=== PATIENT | female | born 1975 | race Caucasian/White ===

== ENCOUNTER 2016-04-24 19:31 | Emergency (ER) | payer OTHER ==
[~2016-04-24] VITALS: Ht 175.3 cm; Wt 120.9 kg
[~2016-04-24 19:31] MED LIST: CLIN300C3 PO; GABA-500 PO; IBUP800T28 PO; KLO5T PO; OXYC-466 PO; PHEN37.53 PO; [UNRECOGNIZED DRUG - CODE] PO
[2016-04-24 19:45] VITALS: BP 127/84; PULSE 97; RESP 18; O2SAT 100
--- NOTE | 2016-04-24 21:03 | ED.REPORT ---
HPI-General Illness Date of Service Apr 24, 2016 ED Provider: MD Eladio This is a 41 year old female with a history of ovarian cysts and chronic pain presenting to the ED complaining of sudden onset nausea that began 30 hours ago. Shortly after pt developed dizziness associated with 2 episodes emesis. Today the nausea and dizziness persists, she also reports a sense of confusion and difficulty speaking. Dizziness is described as a room-spinning sensation. Spouse adds that pt appears to be intoxicated at times although she denies EtOH or illicit substance use. She denies fever, chills, cough, abdominal pain, bowel, or bladder changes at this time. Nursing Notes Stated Complaint: DIZZINESS,FALLING,NOT MAKING SENSE, NAUSEA Chief Complaint: General Complaint Nursing Notes Reviewed: Yes Allergies: Coded Allergies: amoxicillin (Verified Allergy, Intermediate, Hives, 04/24/16) TOLERATED KEFLEX IN PAST morphine (Verified Allergy, Intermediate, dyspnea, hives, 04/24/16) Scheduled Clindamycin HCl (Cleocin) 300 Mg Capsule 300 MG PO QID Clonazepam (Clonazepam) 0.5 Mg Tablet 0 PO 0000 Gabapentin (Gabapentin) 100 Mg Capsule 200 MG PO BID oxyCODONE-Acetaminophen 10-325 mg (oxyCODONE-Acetaminophen 10-325 mg) 1 Each Tablet 0 PO 0000 Scheduled PRN Ibuprofen (Ibuprofen) 800 Mg Tablet 800 MG PO QID PRN PRN For Pain Ondansetron ODT (Ondansetron ODT) 8 Mg Tab.rapdis 8 MG PO QID PRN PRN For Nausea Miscellaneous Medications Hydrocod/APAP-Expunged, Do Not Renew! (Hydrocod/APAP 5/325-Expunged, Do Not Renew!) 10 Tab/Pkg Pkg 10 TAB PO Phentermine -Expunged Drug, Do Not Renew! (Phentermine-Expunged Drug, Do Not Renew!) 37.5 Mg Tablet 37.5 MG PO General Time Seen by MD: 21:03 Chief Complaint Not feeling well Hx Obtained From: Patient Arrived By: Walk-in Sudden in Onset?: Yes Onset Occurred: 1 day ago Symptom Duration: Since onset Severity: Current: No pain currently Pertinent Negative: Pt denies other symptoms Recent Healthcare: No recent doctor visit, No recent hospitalization Similar Sx Previous: No Past Medical History Past Medical History Notes: chronic pain Past Medical History Ovarian cysts Cellulitis herniated disk thinning of the spine reported transverse myelitis Past Surgical History Tubal ligation back surgery Reports: , Tonsillectomy Family History Noncontributory Smoking History Former Smoker Social History Alcohol Use: Denies alcohol use Drug Use: Denies drug use Occupation lives with boyfriend Ambulatory Status Independent Review of Systems Full Review of Systems Constitutional: Denies: Chills, Fever Respiratory: Denies: Non-productive cough, Shortness of breath Cardiovascular: Denies: Chest pain GI: Reports: Nausea, Vomiting, Denies: Abdominal pain Neurologic: Reports: Dizziness, Headache, Unable to speak Complete sys rev & neg: except as marked. Physical Exam Vital Signs Vital Signs Date Time Temp Pulse Resp B/P Pulse Ox O2 Delivery O2 Flow Rate FiO2 04/24/16 23:43 79 14 99/65 96 Room Air 04/24/16 22:06 36.6 82 126/83 97 Room Air 04/24/16 19:45 36.2 97 18 127/84 100 Room Air Initial VS: Reviewed Respiratory: Breath sounds normal, Clear to auscultation, No respiratory distress Cardiovascular: Regular rate & rhythm, Heart sounds normal, Intact distal pulses Extremities: Vascular intact, Neuro intact, No swelling, No tenderness Psychiatric: Mood/affect normal, Behavior normal, Normal thought content General/Constitutional: Awake, Alert Appearance / Presentation: Positive: Ill appearing/not toxic Head / Eyes: PERRL, EOMI, No nystagmus Mouth: Positive: Mucous membranes dry Pharynx / Tonsils / Uvula: Positive: Pharyngeal erythema Neck: Full range of motion Bilateral cervical adenopathy Neurologic: Oriented X3, No motor deficits, No sensory deficits, CN II - XII intact Slow to respond Interpretation & Diagnostics Lab Results Interpretation Result Diagram: 04/24/16204904/24/162049 Test 04/24/16 20:50 04/24/16 21:35 04/24/16 22:00 White Blood Count 8.3th/mm3 (3.8-10.1) Red Blood Count 4.47mil/mm3 (3.90-5.20) Hemoglobin 14.8g/dL (12.0-15.6) Hematocrit 42.8% (35.0-46.0) Mean Corpuscular Volume 95.7fL (81-100) Mean Corpuscular Hemoglobin 33.1pg (27.0-35.0) Mean Corpuscular Hemoglobin Concent 34.6% (32.0-37.0) Red Cell Distribution Width 12.2% (12.3-15.4) Platelet Count 290bil/L (150-400) Neutrophils (%) (Auto) 38.5% (40-74) Lymphocytes (%) (Auto) 49.3% (14-46) Monocytes (%) (Auto) 7.1% (4-12) Eosinophils (%) (Auto) 4.6% (0-5) Basophils (%) (Auto) 0.4% (0-3) Erythrocyte Sedimentation Rate 12mm/hr (0-32) Sodium Level 139mEq/L (134-144) Potassium Level 3.7mEq/L (3.5-5.2) Chloride Level 102mEq/L (97-108) Carbon Dioxide Level 28mmol/L (18-29) Blood Urea Nitrogen 7mg/dL (6-24) Creatinine 0.76mg/dL (0.57-1.00) Estimat Glomerular Filtration Rate 121mL/min (>59) Glucose Level 137mg/dL (60-99) Calcium Level 9.0mg/dL (8.5-10.1) Magnesium Level 1.8mg/dL (1.6-2.6) Total Bilirubin 0.5mg/dL (0.0-1.2) Aspartate Amino Transf (AST/SGOT) 21U/L (0-50) Alanine Aminotransferase (ALT/SGPT) 9U/L (0-32) Alkaline Phosphatase 68U/L (25-150) Total Protein 6.6g/dL (6.4-8.4) Albumin 3.6g/dL (3.4-5.0) Thyroid Stimulating Hormone (TSH) 1.210uIU/mL (0.450-4.500) Free Thyroxine 1.14ng/dL (0.82-1.77) Hold [place] Top Tube Received (Received) Alcohol, Quantitative < 10mg/dL (0-10) Ammonia 33ug/dL (18-53) Urine Color Yellow (YELLOW) Urine Appearance Clear (CLEAR,HAZY) Urine pH 6.5 (5.0-8.0) Urine Specific [place] 1.020 (1.003-1.035) Urine Protein Negativemg/dL (NEG,TRACE) Urine Glucose (UA) Negativemg/dL (NEGATIVE) Urine Ketones Negativemg/dL (NEGATIVE) Urine Occult Blood Negative (NEGATIVE) Urine Nitrite Negative (NEGATIVE) Urine Bilirubin Negative (NEGATIVE) Urine Urobilinogen Normalmg/dL (NORMAL) Urine Leukocyte Esterase Negative (NEGATIVE) Urine RBC 0-2/hpf (0-2) Urine WBC 0-5/hpf (0-5) Urine Epithelial Cells Moderate/hpf (NONE-MOD) Urine Crystals None seen (NONE SEEN) Urine Bacteria Few/hpf (NONE-FEW) Urine Hyaline Casts None/lpf (NONE) Urine Granular Casts None seen (NONE SEEN) Urine Waxy Casts None seen (NONE SEEN) Urine Red Blood Cell Casts None seen (NONE SEEN) Urine White Blood Cell Casts None seen (NONE SEEN) Urine Mucus None seen (None Seen) Urine Trichomonas None seen (NONE SEEN) Urine Yeast None (NONE SEEN) Urine Culture Reflexed Not indicated X-Ray Chest Interpretation Chest Xray Interpretation: IMPRESSION: 1. No acute cardiopulmonary disease. Dictated by: Jose Rowland M.D. on 04/24/2016 at 22:41 Approved by: Jose Rowland M.D. on 04/24/2016 at 22:41 NL X-Ray Chest Findings: No acute disease CT Head Interpretation IMPRESSION: 1. No acute intracranial abnormality. Dictated by: Jose Rowland M.D. on 04/24/2016 at 22:19 Approved by: Jose Rowland M.D. on 04/24/2016 at 22:20 Re-Eval/Medical Decision Med Decision/Clinical Course 41-year-old with a multitude of symptoms but primarily appearing dehydrated and in the midst of a viral flulike illness. She complains also of headache that is markedly improved with hydration and with meds. At this point, she is requesting discharge and appears much better. All of her difficulties with vision and coordination appear to have resolved with hydration. She is discharged in stable condition Time of Eval: 23:22 Re-Evaluation/Progress Note: Re-checked condition improved, pt feels well and would like to go home. Discussed lab and imaging results, plan for discharge, all questions addressed. Counseled Regarding: Diagnosis, Lab results, Need for follow-up, When/why to return to ED Discharge & Departure Primary Impression: Dehydration Additional Impression: Vomiting Vomiting type: unspecified Vomiting Intractability: unspecified Nausea presence: with nausea Qualified Code: R11.2 - Nausea with vomiting, unspecified Disposition: Home Discharge Condition All VS Reviewed: Yes Condition: Stable Patient Instructions: Acute Nausea and Vomiting (ED), Dehydration (ED) Additional Instructions: Try and maintain your hydration. Frequent sips of an electrolyte containing solutions such as Pedialyte, or Gatorade, or Powerade. Zofran if needed for nausea, up to four times daily. Ibuprofen as needed for headache. Follow-up with your doctor in the office. Return here promptly if worsening despite treatment. Referrals: NOPCP (PCP) Scribe Attestation Portions of this note were transcribed by Raghu Suresh. I, Dr. Hendricks personally performed the history, physical exam and medical decision-making; I reviewed and confirmed the accuracy of the information in the transcribed note. Signed by Bob Nash, 04/24/2016 at 21:30. Will Hendricks MD Apr 24, 2016 21:03 RAGHU SURESH Apr 24, 2016 21:05
[2016-04-24 21:04] LABS: BASOPHILS % (AUTO) 0.4 % (0-3); EOSINOPHILS % (AUTO) 4.6 % (0-5); MONOCYTES % (AUTO) 7.1 % (4-12); Mean Corpuscular Hemoglobin 33.1 pg (27.0-35.0); Mean Corpuscular Volume 95.7 fL (81-100); NEUTROPHILS % (AUTO) 38.5 % (40-74); Platelet Count 290 bil/L (150-400)
[2016-04-24] MEDS ORDERED: Ondansetron 2 mg/mL 2 mL Inj IVPUSH ONE (21:20)
[2016-04-24 21:22] LABS: Magnesium 1.8 mg/dL (1.6-2.6)
[2016-04-24] MEDS: 0.9% Sodium Chloride 1,000 ML IV SCH ×2 (21:41→22:48)
[2016-04-24 22:06] VITALS: BP 126/83; PULSE 82; O2SAT 97
--- NOTE | 2016-04-24 22:21 | DRSVH ---
PROCEDURE: CT BRAIN WITHOUT CONTRAST ([id number]) INDICATIONS: Altered mental status. TECHNIQUE: Noncontrast 4.5 mm thick angled axial sections acquired from the foramen magnum to the vertex, with c oronal reformats. COMPARISON: None. FINDINGS: Image quality: Excellent. CSF spaces: Basal cisterns are patent. No extra-axial fluid collections. Ventricles are normal in size and shape. Brain: No intracranial hemorrhage, mass, or mass effect. Fregoso-white matter interface is preserved. Skull and face: Calvarium and visualized facial bones are intact, without suspicious lesions. Sinuses: Visualized sinuses and mastoids are clear. IMPRESSION: 1. No acute intracranial abnormality. Dictated by: Jose Rowland M.D. on 04/24/2016 at 22:19 Approved by: Jose Rowland M.D. on 04/24/2016 at 22:20
[2016-04-24 22:31] LABS: APPEARANCE,URINE CLEAR (CLEAR,HAZY); COLOR,URINE YELLOW (YELLOW); OCCULT BLOOD,URINE NEGATIVE (NEGATIVE); PH,URINE 6.5 (5.0-8.0); UROBILINOGEN,URINE NORMAL (NORMAL)
[2016-04-24] MEDS ORDERED: Haloperidol 5 mg/mL Inj IVPUSH ONE (22:40)
--- NOTE | 2016-04-24 22:42 | DRSVH ---
PROCEDURE: X-RAY CHEST ONE VIEW, PORTABLE ([id number]) INDICATIONS: altered mental status TECHNIQUE: One view of the chest was acquired. COMPARISON: None. FINDINGS: Surgical changes and devices: None. Lungs and pleura: No pleural effusions or pneumothorax. Lungs are clear. Mediastinum: Mediastinal contours appear normal. Heart size is normal. Bones and chest wall: No suspicious bony lesions. Overlying soft tissues appear unremarkable. IMPRESSION: 1. No acute cardiopulmonary disease. Dictated by: Jose Rowland M.D. on 04/24/2016 at 22:41 Approved by: Jose Rowland M.D. on 04/24/2016 at 22:41
[2016-04-24] MEDS ORDERED: ONDA8TAB10 PO (23:26)
[2016-04-24 23:43] VITALS: BP 99/65; PULSE 79; RESP 14; O2SAT 96
== END 2016-04-24 23:44 | disposition home or self-care (01) ==
LOC: SED 19:31
DX: E86.0 Dehydration (principal); R42 Dizziness and giddiness; R41.0 Disorientation, unspecified; R47.9 Unspecified speech disturbances; G89.29 Other chronic pain; Z87.42 Personal history of other diseases of the female genital tract; Z87.891 Personal history of nicotine dependence; Z88.0 Allergy status to penicillin; Z88.5 Allergy status to narcotic agent
CPT/HCPCS: 36415; 70450; 71010; 80053; 81000; 81002; 81025; 82140; 83735; 84439; 84443; 85025; 85651; 87804; 87880; 93005; 96361; 96374; 96375; 99285; G0480; J1200; J1630; J2405; J7030

== ENCOUNTER 2016-04-29 11:42 | Observation (INO) | payer OTHER ==
[~2016-04-29] VITALS: Ht 175.3 cm; Wt 121.2 kg
[~2016-04-29 11:42] MED LIST changes: +ONDA8TAB10 PO
[2016-04-29 11:44] VITALS: BP 141/101; PULSE 84; RESP 15; O2SAT 99
--- NOTE | 2016-04-29 13:21 | ED.REPORT ---
HPI-Dizziness / Weakness Date of Service Apr 29, 2016 ED Provider: Reggie Leon PA-C This is a 41-year-old female who presents with a chief complaint of dizziness. She reports that her symptoms began Tuesday, when she sat up dizzy and fell over. She states since that time she has had several falls, as well as left ear , head, jaw and neck pain, difficulty finding words. Dizziness is described as "room spinning". She cannot identify any aggravating factors. Patient states she has been walking with assistance for the last 5 days, though she admits she was able to get herself to the bathroom when her partner is sleeping. She was seen in this department shortly after symptoms started. Her workup including head CT and chest x-ray were negative. She responded well to fluids and Antivert and was discharged. Patient reports that the meclizine was not effective at home. Transported by EMS to [facility] in [place] approximately 3 days ago after she became short of breath after a fall down the stairs. Again workup was negative including head CT and MRI as well as an x- ray of her left shoulder. This morning she reports falling and striking her head on a tile floor, she was quite nauseated and vomited several times. She denies loss of consciousness, seizures. Nursing Notes Stated Complaint: DIZZY/SHOULDER PAIN Chief Complaint: General Complaint Nursing Notes Reviewed: Yes Allergies: Coded Allergies: nitrofurantoin (Verified Allergy, Severe, Hives, stopped breathing, ) amoxicillin (Verified Allergy, Intermediate, Hives, 04/29/16) TOLERATED KEFLEX IN PAST morphine (Verified Allergy, Intermediate, dyspnea, hives, 04/29/16) Scheduled Clindamycin (Clindamycin) 300 Mg Capsule 300 MG PO TID Clonazepam (Clonazepam) 1 Mg Tablet 1 MG PO TID Duloxetine (Duloxetine) 30 Mg Capsule.dr 30 MG PO DAILY Pregabalin (Lyrica) 225 Mg Capsule 225 MG PO TID Tizanidine (Tizanidine) 4 Mg Tablet 4 MG PO TID Trazodone (Trazodone) 50 Mg Tablet 150 MG PO HS oxyCODONE-Acetaminophen 10-325 mg (oxyCODONE-Acetaminophen 10-325 mg) 1 Each Tablet 1-1.5 TAB PO Q6H Scheduled PRN Diazepam (Diazepam) 2 Mg Tablet 2 MG PO QID PRN PRN For Anxiety Ibuprofen (Ibuprofen) 800 Mg Tablet 800 MG PO QID PRN PRN For Pain Promethazine (Promethazine) 25 Mg Tablet 25 MG PO Q6H PRN PRN For Nausea General Time Seen by MD: 12:46 Chief Complaint Dizzy Past Medical History Past Medical History Notes: [facility] ED for dizziness 04/24/2016 [facility] emergency department for vertigo 04/26/2016 (CT head negative) [facility] urgency department for vertigo with admission April 27, 2016 (negative MRI) Past Medical History Anxiety History depression History of heart murmur as Hypertension, not on medications History polycystic ovarian syndrome Obesity Meniscectomy L4-L5 ho reported transverse myelitis Past Surgical History Tubal ligation Laminectomy L4-L5 in 2009 He sections in 2000, 2013 Hysteroscopy Reports: , Tonsillectomy Family History Noncontributory Smoking History Former Smoker Social History Alcohol Use: Denies alcohol use Drug Use: Denies drug use Occupation lives with boyfriend Ambulatory Status Independent Review of Systems Review of Systems Note: General: Denies fever, chills, malaise. HEENT: Admits headache, ear pain Respiratory: Denies dyspnea, cough, shortness of breath, wheezing. Cardiovascular: Denies chest pain, palpitations. Gastrointestinal: Denies vomiting, diarrhea, abdominal pain. Genitourinary: Denies frequency, urgency, dysuria, hematuria. Otherwise as noted in HPI. Physical Exam General: Well appearing, well developed, well nourished, moderate distress. Head: Atraumatic, normocephalic. No mastoid tenderness. Eyes: No scleral icterus or injection. No discharge. PERRL. EOMI. Vision grossly intact. Left ear: Tympanic membrane bulging, purulent exudate. Pinna and tragus nontender with manipulation. External auditory canal patent, atraumatic and without discharge. Hearing grossly intact. Right ear: Pinna and tragus nontender with manipulation. External auditory canal patent, atraumatic and without discharge. Tympanic membrane carter, shiny and translucent without fluid, bulging, retraction or perforation. Hearing grossly intact. Nose: Symmetrical, nares patent without discharge. No frontal or maxillary sinus tenderness. Mouth/pharynx: Mucus membranes moist. Tonsils 2+ and symmetrical, uvula midline. Pharynx noninjected, no cobblestoning or discharge. Voice clear. Neck: Left anterior neck tender to palpation. Normal to inspection. No lymphadenopathy. Trachea midline. Respiratory: Regular rate and rhythm. Breath sounds present, clear to auscultation and equal bilaterally. Cardiovascular: Regular rate and rhythm, without murmur, gallop or rub. No pedal edema. Gastrointestinal: Obese abdomen with right lower quadrant tenderness and no guarding or rebound. Bowel sounds normoactive. Skin: Warm and dry. Neurological: Grossly nonfocal. Cranial nerves: Light touch over the cheek and jaw deficient on left. Vision grossly intact, patient reports diplopia at all times. PERRL. EOMI. Facial motion symmetrical. Voice clear and fluent, no drooling/pooling of saliva, uvula rises midline. Psychological: Alert and oriented. Patient reports difficulty finding words. Speech appropriate, linear and logical. Behavior appropriate. Initial Vital Signs Vital Signs (First) Date Time Temp Pulse Resp B/P Pulse Ox O2 Delivery O2 Flow Rate FiO2 04/29/16 11:44 36.2 84 15 141/101 99 Room Air Initial VS: Reviewed, Vital signs abnormal Interpretation & Diagnostics Interpretation & Diagnostics: CT head 2 negative and past few days, MRI brain normal at [place] Lab Results Interpretation Result Diagram: 04/29/16 1352 04/29/16 1352 Test 04/29/16 12:00 04/29/16 13:52 Hold Urine Received (Received) White Blood Count 8.4th/mm3 (3.8-10.1) Red Blood Count 4.53mil/mm3 (3.90-5.20) Hemoglobin 14.9g/dL (12.0-15.6) Hematocrit 42.0% (35.0-46.0) Mean Corpuscular Volume 92.7fL (81-100) Mean Corpuscular Hemoglobin 32.9pg (27.0-35.0) Mean Corpuscular Hemoglobin Concent 35.5% (32.0-37.0) Red Cell Distribution Width 11.9% (12.3-15.4) Platelet Count 269bil/L (150-400) Neutrophils (%) (Auto) 43.1% (40-74) Lymphocytes (%) (Auto) 45.1% (14-46) Monocytes (%) (Auto) 7.9% (4-12) Eosinophils (%) (Auto) 3.6% (0-5) Basophils (%) (Auto) 0.2% (0-3) Sodium Level 145mEq/L (134-144) Potassium Level 4.4mEq/L (3.5-5.2) Chloride Level 106mEq/L (97-108) Carbon Dioxide Level 27mmol/L (18-29) Blood Urea Nitrogen 12mg/dL (6-24) Creatinine 0.82mg/dL (0.57-1.00) Estimat Glomerular Filtration Rate 111mL/min (>59) Glucose Level 94mg/dL (60-99) Calcium Level 9.1mg/dL (8.5-10.1) Total Bilirubin 0.5mg/dL (0.0-1.2) Aspartate Amino Transf (AST/SGOT) 27U/L (0-50) Alanine Aminotransferase (ALT/SGPT) 9U/L (0-32) Alkaline Phosphatase 85U/L (25-150) Total Protein 6.6g/dL (6.4-8.4) Albumin 4.1g/dL (3.4-5.0) Hold [place] Top Tube Received (Received) Re-Eval/Medical Decision Source of Hx: Old records (obtained from [facility]) Consultation #1: Referral / Consult Name: Sonia Tate MD Consulted With: Primary care physician Call Returned at: 13:49 Note: Discussed case with her primary care physician reports that she is concerned because the patient appeared quite lethargic and sedated in clinic last night. Symptoms of dizziness and ear pain and headache have been persistent. Workup at [facility] was generally negative including head CT and MRI. Dr. Scott states she is considering sinusitis, labyrinthitis and placed the patient on clindamycin. She also reports the patient is on a pain contract. She was last taking up to 7, 10 mg oxycodone per day. She feels that given her a 10 mg oxycodone today for her head and shoulder pain as appropriate. Consultation #2: Referral / Consult Name: Ky Sanders DO Consulted With: Hospitalist Call Returned at: 16:35 Client Relationship Executive: Agrees with eval, Agrees with plan, Accepts admit Note: Dr. Aparicio discussed patient's case with Dr. Sanders, who accepts admit Patient Discharge & Departure Impression: Primary Impression: Vertigo Additional Impression: Left ear pain Disposition: ADMITTED TO HOSPITAL Referrals: NOPCP (PCP) Sonia Tate MD EDSupervising Provider for APC: Mike Aparicio MD Attestation Portions of this note were transcribed by Bela Penn. I, Dr. Aparicio, personally performed the history, physical exam, and medical decision-making; I reviewed and confirmed the accuracy of the information in the transcribed note. Signed by: Bob Covarrubias, 04/29/2016, 16:51 Attending Statement This is a patient initially seen by the mid-level provider, but I personally interviewed and examined this patient. This patient was initially seen and evaluated at [facility] on April 24 in the emergency department for dizziness and falling, with possible vertigo, had a stat CT was negative and was discharged. She was subsequently seen both April 26 in April 27 at [facility] in [place]. She reports about 4 days ago abrupt onset of vertigo which she describes it spinning, worse with turning her head-and describes today is "I feel come on about" and associated that she has had several falls. . She has had Had a CT up at [facility] as well on her visit on April 26. She has been adamant trying to make it home, but was still having profound symptoms of re-presented to the ED at [facility] on the , her arrangements were made for her to be admitted. She underwent brain MRI on the which was negative. However she was only there for several hours, and despite still being symptomatic signed out AMA. She is follow-up the PCP and because she is complaining of left ear pain was started on clindamycin, and has been tried on a multitude of medicines-meclizine, ondansetron, currently taking diazepam 5 mg at a time and she reports none of them of help. Presents complaining of intractable vertigo, the sense that she feels drunk, and ongoing severe left ear pain. On exam she has no focal deficits, no nystagmus. She is obese. I do not appreciate any overt external signs of infection on clinical exam of the left ear. While she complains of pain, the eardrum and canal appear normal. But she has describes pain just performing the physical exam. There is no visible swelling, there is no cellulitis around the ear or jaw, there is no adenopathy. There is no TM perforation, and I do not appreciate any fluid behind the eardrum. I obtained records from [facility] with all of her notes and reviewed and confirmed the negative imaging. The patient's complaining of pain, intractable symptoms. I have added additional medication and we tried promethazine, Benadryl, and after social hospitalist and repeat benzodiazepines, having some steroids and if given 40 mg of Solu-Medrol, for pain and given dose of Dilaudid, and given ear pain I still think it is reasonable to treat for the possibility of an ear infectionthough I do not appreciate one clearcut on physical exam, I do not push any dental infections on exam. However primary care physician or Center in today requesting a dose of IV antibiotics, so dose of ceftriaxone is been given. Rectal reveals an rhythms, multiple visits the patient's being admitted and the case is been discussed the hospitalist. Sonia Tate MD, Seth PA-C Apr 29, 2016 13:21 BELA PENN Apr 29, 2016 16:49 Mike Aparicio MD Apr 29, 2016 16:59 Mike Aparicio MD Apr 29, 2016 16:59
[2016-04-29] MEDS ORDERED: 0.9% Sodium Chloride 1,000 ML IV ONE (13:30)
[2016-04-29] MEDS ORDERED: oxyCODONE-Acetamin 5-325 mg Tablet PO ONE (14:05)
[2016-04-29 14:18] VITALS: BP 124/75; PULSE 71; O2SAT 96
[2016-04-29 14:34] LABS: BASOPHILS % (AUTO) 0.2 % (0-3); EOSINOPHILS % (AUTO) 3.6 % (0-5); MONOCYTES % (AUTO) 7.9 % (4-12); Mean Corpuscular Hemoglobin 32.9 pg (27.0-35.0); Mean Corpuscular Volume 92.7 fL (81-100); NEUTROPHILS % (AUTO) 43.1 % (40-74); Platelet Count 269 bil/L (150-400)
[2016-04-29] MEDS ORDERED: HYDROmorphone 1 mg/mL Inj IVPUSH ONE (15:20)
[2016-04-29] MEDS ORDERED: Promethazine Inj 25 MG in Dextrose 5%-Pha MIX 50 ML IV ONE (15:20)
[2016-04-29] MEDS ORDERED: Neomycin-Polymyxin-HC 10 mL Otic Solution LEFT_EAR ONE (15:25)
[2016-04-29] MEDS ORDERED: MethylprednisoLONE Sodium Succinate 40 mg/mL Inj IVPUSH ONE (16:40)
[2016-04-29] MEDS ORDERED: Ondansetron 2 mg/mL 2 mL Inj IVPUSH PRN (17:10)
[2016-04-29] MEDS ORDERED: Alum-Mag Hydrox-Simeth 30 mL Suspension PO PRN (17:10)
[2016-04-29] MEDS ORDERED: Promethazine 12.5 mg/50 mL-NS 12.5 MG in IV Premix 1 EACH IV PRN (17:10)
[2016-04-29 17:33] VITALS: BP 143/94; PULSE 77; O2SAT 98
[2016-04-29] MEDS ORDERED: CLIN-78 PO (17:45)
[2016-04-29] MEDS ORDERED: PROM25TA14 PO (17:45)
[2016-04-29] MEDS ORDERED: DIAZ2TAB2 PO (17:45)
--- NOTE | 2016-04-29 17:46 | PCM.HPMED ---
Subjective Date of Service Apr 29, 2016 Primary Provider: Admitting Physician: Primary Care Physician: Other,Physician Attending Physician: Admit Status: From the Emergency Department Chief Complaint: vertigo History of Present Illness: 41 yo female - began tuesday night with subsequent 2 doctor visits and ER visits, with persistent vertigo. vomited x 1 with nausea. no diarrhea/f/c. hx of fall in bathroom/bedroom, with head trauma w/ falls d/t vertigo. hasn't resolved - has been continuous, no prev episodes. Pt notes tubal ligation. denies vaginal or rectal bleeding. was in [facility] prior to tuesday - no trauma. neg CT/MRI during recent w/u. denies new medications, take chronic pain meds for LBP from lumbar spine fusion/herniated disc. Pt seen in [facility] ED for dizziness on 04/24/2016 along with [facility] emergency department for vertigo 04/26/2016 (CT head neg) and [facility] ER on April 27, 2016 (found to have negative MRI) Review of Systems: complete ROS unremarkable except as listed in HPI Allergies Coded Allergies: amoxicillin (Verified Allergy, Intermediate, Hives, 04/29/16) TOLERATED KEFLEX IN PAST morphine (Verified Allergy, Intermediate, dyspnea, hives, 04/29/16) Home Medications Clindamycin HCl (Cleocin) 300 Mg Capsule 300 MG PO QID Clonazepam (Clonazepam) 0.5 Mg Tablet for sleep/anxiety Gabapentin (Gabapentin) 100 Mg Capsule 200 MG PO BID oxyCODONE-Acetaminophen 10-325 mg (oxyCODONE-Acetaminophen 10-325 mg) 1 Each Tablet 0 PO 0000 recently started diazepam 2mg q6PRN from PCP for vertigo Promethazine - PRN Meclizine - PRN Scheduled PRN Ibuprofen (Ibuprofen) 800 Mg Tablet 800 MG PO QID PRN PRN For Pain Ondansetron ODT (Ondansetron ODT) 8 Mg Tab.rapdis 8 MG PO QID PRN PRN For Nausea PMH Anxiety History depression History of heart murmur as Hypertension, not on medications polycystic ovarian syndrome Obesity Meniscectomy L4-L5, herniated disc ho reported transverse myelitis Surgical History Tubal ligation Laminectomy L4-L5 in 2009 He sections in 2000, 2013 Hysteroscopy Reports: , Tonsillectomy Family History Noncontributory Social History Hx Alcohol Use: No Hx Substance Use: No Smoking Status: Former Smoker Exam Vital Signs Vital Sign - Last Date Time Temp Pulse Resp B/P Pulse Ox O2 Delivery O2 Flow Rate FiO2 04/29/16 14:18 36.7 71 124/75 96 Room Air 04/29/16 11:44 15 Exam Gen.: Uncomfortable, alert and oriented, pleasant, obese HEENT: Normocephalic/atraumatic, pupils equal round react to light and accommodation,EOMI, Anicteric sclera, No mucosal ulcerations, no overt nystagmus noted with lateral gaze, also noted left ear findings of bulging TM, erythematous and tender to touch. Right ear nontender, with normal exam Neck: No JVD, lymphadenopathy, no thyromegaly Cardiovascular: No rubs clicks murmurs or gallops, regular rate Respiratory: Clear to auscultation bilaterally no wheezes rales or rhonchi, good historian effort GI: Soft, nontender to palpation no masses no hepatosplenomegaly noted no peritoneal signs or rebound tenderness. Extremities: No clubbing cyanosis or edema, warm, sensation intact Neurologic, muscle strength 5 out of 5 in upper and lower extremities bilaterally, creatinine nerves II-12 grossly intact Psych: Mood appropriate, affect appropriate, no tangential thought or speech Lab and Diagnostics Result Diagram: 04/29/16 1352 04/29/16 1352 X-Rays, CTs and MRIs April 24 IMPRESSION: 1. No acute intracranial abnormality. Dictated by: Jose Rowland M.D. on 04/24/2016 at 22:19 Assessment & Plan 41-year-old female presenting with vertigo possibly secondary to left otitis media, less likely BPPV given the lack of nystagmus Vertigo, negative MRI CT on previous hospital visits -Plan to treat for left-sided otitis media, patient was on clindamycin as an outpatient and may continue. -Received Solu-Medrol dose in the ER along with Ativan -We will continue when necessary Ativan but avoid oversedation -Hold home regimen of Klonopin and Valium. -PT to see patient was hospitalized for eval of functional status to ensure safe discharge -Zofran and meclizine when necessary Anxiety/depression -When necessary lorazepam as above Hypertension -Not on any medications, monitor for now likely unrelated to above -We will consider when necessary medications if persistently elevated Pain Evaluation: Adequate Pain Control GI Prophylaxis: Not indicated VTE Prophylaxis: Other (ambulatory) Resuscitation Status: CPR: Attempt Resuscitation Time spent 40 minutes spent with evaluation and management including coordination of care and admission. Ky Sanders DO Apr 29, 2016 17:18
[2016-04-29] MEDS ORDERED: PREG225C PO (17:54)
[2016-04-29] MEDS ORDERED: TRAZ-115 PO (17:54)
[2016-04-29] MEDS ORDERED: KLO1T PO (17:54)
[2016-04-29] MEDS ORDERED: DULO30CA50 PO (17:54)
[2016-04-29] MEDS ORDERED: TIZA4TAB4 PO (17:57)
--- NOTE | 2016-04-29 18:14 | NUR ---
Admit nurse note Partial admission assessment completed in room. During med reconciliation pt. had difficulty remembering and began to get confused about which med was which. She became tearful, said she felt judged and misunderstood, and said "I just want it all to end. It'll never get better. It all just gets worse all the time." Pt's eyelids drooped shut many times during conversation and she said she had her home meds in her diaper bag and had taken her home ativan. "I told the nurse. She knows and was okay with that." Pt. informed of policy that no home meds be in pt. rooms and agrees to send her meds home with her . Several meds at bedside placed in a bag to be taken home with . ED RN states she did not know pt. was taking her home meds and, in fact, gave her ativan and benadryl. Report given to primary RN who is currently giving report to receiving RN Braden Lin.
[2016-04-29 19:15] VITALS: BP 145/88; PULSE 68; RESP 16; O2SAT 96
[2016-04-29] MEDS: 0.9% Sodium Chloride 1,000 ML IV SCH (20:26)
[2016-04-29 21:08] VITALS: BP 152/98; PULSE 74; RESP 18; O2SAT 97
[2016-04-29] MEDS ORDERED: oxyCODONE-Acetamin 10-325 mg Tablet PO PRN (23:50)
--- NOTE | 2016-04-30 00:25 | NUR ---
Pain / Mentation / Family Visitors c/o 9.5 pain, eventually received PRN Oxycodone order from Night Hospitalist. Step-father, adolescent daughter and toddler son in room at shift change. Step-father left with toddler and to go get food for patient. daughter stayed in room. The daughter became tearful around 22:30 and walked out to hand me a vape nicotine device. The patient indicated from inside room she wants to call 911. Walked into room and patient/mom asked: "is someone in the hospital that can control my daughter" ...i advised a parent or guardian would be best. The patient/mom argued with daughter over whose vape it was... each blaming the other person. I ended up locking in med drawer advising its use was not permitted in hospital. The daughter was also tearful over wanting to go see her biological father. The patient/mom began explaining there is a do not contact order against the biological father. The daughter insists it hasn't taken effect yet. The step father came back again to pickup daughter and left with vape device. Patients meds are still in pharmacy, however after second visit from step-father the patient refused the afore mentioned pain medications. Patient appears to be resting quietly.
[2016-04-30 06:09] VITALS: BP 123/70; PULSE 60; RESP 18; O2SAT 92
[2016-04-30] MEDS: 0.9% Sodium Chloride 1,000 ML IV SCH (07:48)
[2016-04-30 09:16] LABS: APPEARANCE,URINE CLEAR (CLEAR,HAZY); COLOR,URINE YELLOW (YELLOW); OCCULT BLOOD,URINE NEGATIVE (NEGATIVE); PH,URINE 5.5 (5.0-8.0); UROBILINOGEN,URINE NORMAL (NORMAL)
[2016-04-30 09:56] LABS: BASOPHILS % (AUTO) 0.1 % (0-3); EOSINOPHILS % (AUTO) 0.1 % (0-5); MONOCYTES % (AUTO) 6.7 % (4-12); Mean Corpuscular Hemoglobin 32.8 pg (27.0-35.0); Mean Corpuscular Volume 92.8 fL (81-100); NEUTROPHILS % (AUTO) 82.3 % (40-74); Platelet Count 268 bil/L (150-400)
[2016-04-30] MEDS ORDERED: DULoxetine 30 mg DR Capsule PO SCH (12:05)
--- NOTE | 2016-04-30 13:12 | PCM.DIMED ---
Discharge Instructions Date of Service Apr 30, 2016 Dates of Hospitalization Apr 29, 2016 at 18:13 Discharge Diagnosis Discharge Diagnosis Refractory Vertigo likely secondary to otitis media Anxiety History depression History of heart murmur as Hypertension, not on medications polycystic ovarian syndrome Obesity Meniscectomy L4-L5, herniated disc Medication Instructions Please continue azithromycin to complete a 5 day regimen, her last dose will be on 05/03 for your ear infection Diet Low fat, Low Sodium, Heart Healthy Activity No restrictions Call your provider Fever or Chills, Shortness of breath, Bleeding, Chest pain Patient Instructions Please continue azithromycin to complete a 5 day regimen, her last dose will be on 05/03 for your ear infection Follow-up plan Please follow up with her primary care physician within one week, and take your meclizine as needed for persistent vertigo. If taking this medication often they can cause dry mouth, sedation and urinary hesitancy. Please try not to take this with your nighttime sleeping medicine Follow-up with PCP in: 1 week Ky Sanders DO Apr 30, 2016 13:11
[2016-04-30] MEDS ORDERED: ZIT250 PO (13:14)
[2016-04-30] MEDS ORDERED: PRE20 PO ×2 (13:20→13:22)
--- NOTE | 2016-04-30 13:32 | PCM.DC.MED ---
Discharge Summary Date of Service Apr 30, 2016 Dates of Hospitalization Date of Hospital Admission Apr 29, 2016 at 18:13 Date of Discharge: Apr 30, 2016 Providers: Admitting Physician: Ky Sanders DO Primary Care Physician: Other,Physician Attending Physician: Ky Sanders DO Diagnosis at Time of Discharge Diagnosis at Time of Discharge Refractory Vertigo likely secondary to otitis media Anxiety History depression History of heart murmur as infant Hypertension, not on medications polycystic ovarian syndrome Obesity Meniscectomy L4-L5, herniated disc Procedures XRay, CTs & MRIs April 24 IMPRESSION: 1. No acute intracranial abnormality. Dictated by: Jose Rowland M.D. on 04/24/2016 at 22:19 Brief History 41 yo female - began tuesday night with subsequent 2 doctor visits and ER visits, with persistent vertigo. vomited x 1 with nausea. no diarrhea/f/c. hx of fall in bathroom/bedroom, with head trauma w/ falls d/t vertigo. hasn't resolved - has been continuous, no prev episodes. Pt notes tubal ligation. denies vaginal or rectal bleeding. was in [facility] prior to tuesday - no trauma. neg CT/MRI during recent w/u. denies new medications, take chronic pain meds for LBP from lumbar spine fusion/herniated disc. Pt seen in [facility] ED for dizziness on 04/24/2016 along with [facility] emergency department for vertigo 04/26/2016 (CT head neg) and [facility] ER on April 27, 2016 (found to have negative MRI) Hospital Course 41-year-old female presenting with vertigo possibly secondary to left otitis media, less likely BPPV given the lack of nystagmus Vertigo, negative MRI CT on previous hospital visits -Plan to discharge patient and continue treatment for left-sided otitis media, patient was on clindamycin as an outpatient and has been switched to azithromycin, to continue 4 more days and complete a course. -At time of discharge patient was medically stable with adequate oxygenation and hemodynamics, patient was watched with nursing staff and found to be stable with her gait. -Received Solu-Medrol dose in the ER along with Ativan, patient has diazepam at home and has been instructed not to take diazepam and her anxiety medication Klonopin, together as they can cause an extreme sedative effect./Rectum not to take medications with her meclizine that she has at home for vertigo. -Given her symptomatically improvement with Solu-Medrol I will plan on continuing prednisone for 4 more days. -We will continue when necessary Ativan but avoid oversedation -Hold home regimen of Klonopin and Valium. -Zofran and meclizine were provided when necessary while hospitalized Anxiety/depression -When necessary lorazepam as above Hypertension -Not on any medications, monitor for now likely unrelated to above -We will consider when necessary medications if persistently elevated Exam Vital Signs (Last) Date Time Temp Pulse Resp B/P Pulse Ox O2 Delivery O2 Flow Rate FiO2 04/30/16 06:09 36.7 60 18 123/70 92 04/29/16 17:33 Room Air Exam Gen.: Uncomfortable, alert and oriented, pleasant, obese HEENT: Normocephalic/atraumatic, pupils equal round react to light and accommodation,EOMI, Anicteric sclera, No mucosal ulcerations, no overt nystagmus noted with lateral gaze, also noted left ear findings of bulging TM, erythematous and tender to touch. Right ear nontender, with normal exam Neck: No JVD, lymphadenopathy, no thyromegaly Cardiovascular: No rubs clicks murmurs or gallops, regular rate Respiratory: Clear to auscultation bilaterally no wheezes rales or rhonchi, good historian effort GI: Soft, nontender to palpation no masses no hepatosplenomegaly noted no peritoneal signs or rebound tenderness. Extremities: No clubbing cyanosis or edema, warm, sensation intact Neurologic, muscle strength 5 out of 5 in upper and lower extremities bilaterally, creatinine nerves II-12 grossly intact Psych: Mood appropriate, affect appropriate, no tangential thought or speech Test 04/29/16 08:19 04/29/16 12:00 04/29/16 13:52 04/30/16 09:15 Urine Color Yellow (YELLOW) Urine Appearance Clear (CLEAR,HAZY) Urine pH 5.5 (5.0-8.0) Urine Specific [place] 1.030 (1.003-1.035) Urine Protein Negativemg/dL (NEG,TRACE) Urine Glucose (UA) Negativemg/dL (NEGATIVE) Urine Ketones Negativemg/dL (NEGATIVE) Urine Occult Blood Negative (NEGATIVE) Urine Nitrite Negative (NEGATIVE) Urine Bilirubin Negative (NEGATIVE) Urine Urobilinogen Normalmg/dL (NORMAL) Urine Leukocyte Esterase Negative (NEGATIVE) Urine RBC 0-2/hpf (0-2) Urine WBC 0-5/hpf (0-5) Urine Epithelial Cells Occasional/hpf (NONE-MOD) Urine Crystals None seen (NONE SEEN) Urine Bacteria Moderate/hpf (NONE-FEW) Urine Hyaline Casts None/lpf (NONE) Urine Granular Casts None seen (NONE SEEN) Urine Waxy Casts None seen (NONE SEEN) Urine Red Blood Cell Casts None seen (NONE SEEN) Urine White Blood Cell Casts None seen (NONE SEEN) Urine Mucus Present (None Seen) Urine Trichomonas None seen (NONE SEEN) Urine Yeast None (NONE SEEN) Urinalysis Comment None Urine Culture Reflexed Indicated Hold Urine Received (Received) Total Bilirubin 0.5mg/dL (0.0-1.2) Aspartate Amino Transf (AST/SGOT) 27U/L (0-50) Alanine Aminotransferase (ALT/SGPT) 9U/L (0-32) Alkaline Phosphatase 85U/L (25-150) Total Protein 6.6g/dL (6.4-8.4) Albumin 4.1g/dL (3.4-5.0) Hold [place] Top Tube Received (Received) White Blood Count 14.5th/mm3 (3.8-10.1) Red Blood Count 4.42mil/mm3 (3.90-5.20) Hemoglobin 14.5g/dL (12.0-15.6) Hematocrit 41.0% (35.0-46.0) Mean Corpuscular Volume 92.8fL (81-100) Mean Corpuscular Hemoglobin 32.8pg (27.0-35.0) Mean Corpuscular Hemoglobin Concent 35.4% (32.0-37.0) Red Cell Distribution Width 11.6% (12.3-15.4) Platelet Count 268bil/L (150-400) Neutrophils (%) (Auto) 82.3% (40-74) Lymphocytes (%) (Auto) 10.5% (14-46) Monocytes (%) (Auto) 6.7% (4-12) Eosinophils (%) (Auto) 0.1% (0-5) Basophils (%) (Auto) 0.1% (0-3) Sodium Level 144mEq/L (134-144) Potassium Level 5.4mEq/L (3.5-5.2) Chloride Level 108mEq/L (97-108) Carbon Dioxide Level 24mmol/L (18-29) Blood Urea Nitrogen 12mg/dL (6-24) Creatinine 0.77mg/dL (0.57-1.00) Estimat Glomerular Filtration Rate 119mL/min (>59) Glucose Level 126mg/dL (60-99) Calcium Level 9.3mg/dL (8.5-10.1) Discharge Medications Discharge Medications Azithromycin (Zithromax) 250 Mg Tablet 250 MG PO DAILY Prescribed by: KY SANDERS DO Clonazepam (Clonazepam) 1 Mg Tablet 1 MG PO TID (Reported) Duloxetine (Duloxetine) 30 Mg Capsule.dr 30 MG PO DAILY (Reported) Prednisone (PredniSONE) 20 Mg Tablet 20 MG PO DAILY Prescribed by: KY SANDERS DO Pregabalin (Lyrica) 225 Mg Capsule 225 MG PO TID (Reported) Tizanidine (Tizanidine) 4 Mg Tablet 4 MG PO TID (Reported) Trazodone (Trazodone) 50 Mg Tablet 150 MG PO HS (Reported) oxyCODONE-Acetaminophen 10-325 mg (oxyCODONE-Acetaminophen 10-325 mg) 1 Each Tablet 1-1.5 TAB PO Q6H (Reported) As needed Diazepam (Diazepam) 2 Mg Tablet 2 MG PO QID PRN PRN For Anxiety (Reported) Ibuprofen (Ibuprofen) 800 Mg Tablet 800 MG PO QID PRN PRN For Pain (Reported) Promethazine (Promethazine) 25 Mg Tablet 25 MG PO Q6H PRN PRN For Nausea ( Reported) Additional med instructions Please continue azithromycin to complete a 5 day regimen, her last dose will be on 05/03 for your ear infection Followup Plan Follow-up plan Please follow up with her primary care physician within one week, and take your meclizine as needed for persistent vertigo. If taking this medication often they can cause dry mouth, sedation and urinary hesitancy. Please try not to take this with your nighttime sleeping medicine Discharge Diet: Low fat, Low Sodium, Heart Healthy Discharge Activity: No restrictions Patient Instructions Please continue azithromycin to complete a 5 day regimen, her last dose will be on 05/03 for your ear infection Follow-up with PCP in: 1 week Time spent 45 minutes spent with evaluation management including discharge and coordination of care copies to: Sonia Tate MD, David DO Apr 30, 2016 13:27
--- NOTE | 2016-04-30 13:54 | NUR ---
Social Work: Discharge Data: Pt is on day 1 of hospitalization. EMR reviewed. D/C orders are in. No d/c planning needed at this time. TREATMENT COORDINATOR will continue to follow if needs arise. Assessment: Pt who is independent at baseline. Plan: Pt will d/c home via POV today. No d/c planning needed at this time. TREATMENT COORDINATOR will continue to follow if needs arise. МАРИНА Escobar
[2016-04-30 16:05] VITALS: BP 141/91; PULSE 103; RESP 20; O2SAT 96
--- NOTE | 2016-04-30 16:50 | NUR ---
Discharge Discharge paper work, care notes, and medications reviewed and signed. IV DC'd intact, No s/sx of distress, all belongings with pt, and home meds picked up from pharmacy.
== END 2016-04-30 15:00 | disposition home or self-care (01) ==
LOC: SED 11:42 → MPC 18:13
PROVIDERS: ADMIT Internal Medicine; ATTEND Internal Medicine
DX: R42 Dizziness and giddiness (principal); F41.9 Anxiety disorder, unspecified; F32.9 Major depressive disorder, single episode, unspecified; R01.1 Cardiac murmur, unspecified; I10 Essential (primary) hypertension; E28.2 Polycystic ovarian syndrome; E66.9 Obesity, unspecified; Z79.52 Long term (current) use of systemic steroids; Z87.891 Personal history of nicotine dependence
CPT/HCPCS: 36415; 80048; 80053; 81000; 81025; 85025; 87086; 90791; 96361; 96374; 96375; 96376; 99285; J1170; J1200; J2060; J2920; J7030

== ENCOUNTER 2016-06-29 15:23 | Emergency (ER) | payer OTHER ==
[~2016-06-29] VITALS: Ht 175.3 cm; Wt 125.0 kg
[~2016-06-29 15:23] MED LIST changes: -CLIN300C3 PO; +DIAZ2TAB2 PO; +DULO30CA50 PO; -GABA-500 PO; +KLO1T PO; -KLO5T PO; -ONDA8TAB10 PO; -PHEN37.53 PO; +PRE20 PO; +PREG225C PO; +PROM25TA14 PO; +TIZA4TAB4 PO; +TRAZ-115 PO; +ZIT250 PO; -[UNRECOGNIZED DRUG - CODE] PO
[2016-06-29 15:35] VITALS: PULSE 92; RESP 15; O2SAT 100
[2016-06-29 17:03] LABS: BASOPHILS % (AUTO) 0.2 % (0-3); EOSINOPHILS % (AUTO) 3.1 % (0-5); MONOCYTES % (AUTO) 6.1 % (4-12); Mean Corpuscular Hemoglobin 32.7 pg (27.0-35.0); Mean Corpuscular Volume 93.2 fL (81-100); NEUTROPHILS % (AUTO) 59.2 % (40-74); Platelet Count 305 bil/L (150-400)
[2016-06-29] MEDS: HYDROmorphone 0.5 mg/0.5 mL iSecure Syringe IVPUSH PRN ×5 (17:16→21:11)
--- NOTE | 2016-06-29 17:19 | ED.REPORT ---
HPI-Neurologic Deficit Date of Service Jun 29, 2016 ED Provider: Jesus Dash MD Pt is a 41 y/o female w/ a hx of herniated disc at T10-T11, HTN, presenting to the ED c/o urinary retention onset today. She c/o associated mid-back pain and urinary incontinence onset last night. Two months ago, she was seen in [place] for urinary retention and was discharged with a Lora. Follow-up with [facility] in [place] was obtained who told her that the nerve impingement was the definite cause after a bearing down exercise. She denies IV drug use. She denies fever, chills. Her last back MRI was 1 year ago. A neurosurgery consult has been performed and she was told she was not a surgical candidate at that time. Nursing Notes Stated Complaint: WEAK LEGS/SPINE PAIN Chief Complaint: General Complaint Nursing Notes Reviewed: Yes Allergies: Coded Allergies: nitrofurantoin (Verified Allergy, Severe, Hives, stopped breathing, ) amoxicillin (Verified Allergy, Intermediate, Hives, 04/29/16) TOLERATED KEFLEX IN PAST morphine (Verified Allergy, Intermediate, dyspnea, hives, 04/29/16) Scheduled PRN Clonazepam (Clonazepam) 1 Mg Tablet 1 MG PO TID PRN PRN For Anxiety Ibuprofen (Ibuprofen) 800 Mg Tablet 800 MG PO QID PRN PRN For Pain General Time Seen by Provider: 17:31 Chief Complaint Other (Urinary incontinence) Hx Obtained From: Patient Arrived By: Walk-in Sudden in Onset?: No Onset Occurred: 1 day ago Symptom Duration: Since onset Progression Since Onset: Gradually worsening Location: : Back lower: Back upper Quality: Painful Severity: Current: Moderate Severity: Maximum: Severe Exacerbated by: Movement Recent Healthcare: Previous diagnosis Similar Sx Previous: Yes Past Medical History Past Medical History Herniated discs Anxiety History depression History of heart murmur as infant Hypertension, not on medications History polycystic ovarian syndrome Obesity Meniscectomy L4-L5 ho reported transverse myelitis Past Surgical History Tubal ligation Laminectomy L4-L5 in 2009 He sections in 2000, 2013 Hysteroscopy Reports: , Tonsillectomy Family History Noncontributory Smoking History Former Smoker Social History Alcohol Use: Denies alcohol use Drug Use: Denies drug use Occupation lives with boyfriend Ambulatory Status Independent Review of Systems Constitutional: Denies: Chills, Fever Respiratory: Denies: Non-productive cough, Shortness of breath Cardiovascular: Denies: Chest pain, Dyspnea on exertion GI: Reports: Nausea, Vomiting Musculoskeletal: Reports: Back pain, Denies: Neck pain Neurologic: Reports: Bladder dysfunction, Weakness Complete sys rev & neg: except as marked. Female: Reports: Incontinence, Urination decreased Physical Exam Initial Vital Signs Vital Signs (First) Date Time Temp Pulse Resp B/P Pulse Ox O2 Delivery O2 Flow Rate FiO2 06/29/16 15:35 36.6 92 15 100 Room Air Initial VS: Reviewed ENT: Mucous membranes moist, Conjunctiva normal, No scleral icterus Neck: Supple, Full range of motion Abdomen / GI: Soft, Non-tender Extremities: Vascular intact, Neuro intact, No swelling, No tenderness Skin: Warm, Dry, No cyanosis Psychiatric: Mood/affect normal, Behavior normal, Normal thought content General/Constitutional: Awake, Alert, Cooperative, Not toxic appearing Distress / Hydration: Positive: Distress mild Appearance / Presentation: Positive: Uncomfortable Head / Eyes: Atraumatic, Normocephalic, PERRL Respiratory / Chest: Atraumatic, Breath sounds NL, Breath sounds = bilat, No respiratory distress, No rales, No rhonchi, No wheezing, No retractions, No stridor, No chest tenderness, No chest wall deformity, No crepitus Cardiovascular: Heart rate NL, Regular rhythm, Heart sounds NL, No gallop, No murmurs, No rubs, Cap refill not delayed, Peripheral circulation NL Neurologic: Oriented X3, Speech NL, No motor deficits, Memory NL Babinski's are equivocal bilaterally Knee jerks are aggressive and symmetric Subjective decreased sesnation of the right foot Interpretation & Diagnostics Lab Results Interpretation Result Diagram: 06/29/16 1645 06/29/16 1645 Test 06/29/16 16:45 White Blood Count 13.7th/mm3 (3.8-10.1) Red Blood Count 4.55mil/mm3 (3.90-5.20) Hemoglobin 14.9g/dL (12.0-15.6) Hematocrit 42.4% (35.0-46.0) Mean Corpuscular Volume 93.2fL (81-100) Mean Corpuscular Hemoglobin 32.7pg (27.0-35.0) Mean Corpuscular Hemoglobin Concent 35.1% (32.0-37.0) Red Cell Distribution Width 13.1% (12.3-15.4) Platelet Count 305bil/L (150-400) Neutrophils (%) (Auto) 59.2% (40-74) Lymphocytes (%) (Auto) 31.0% (14-46) Monocytes (%) (Auto) 6.1% (4-12) Eosinophils (%) (Auto) 3.1% (0-5) Basophils (%) (Auto) 0.2% (0-3) Sodium Level 138mEq/L (134-144) Potassium Level 4.3mEq/L (3.5-5.2) Chloride Level 102mEq/L (97-108) Carbon Dioxide Level 20mmol/L (18-29) Blood Urea Nitrogen 13mg/dL (6-24) Creatinine 0.79mg/dL (0.57-1.00) Estimat Glomerular Filtration Rate 115mL/min (>59) Glucose Level 88mg/dL (60-99) Calcium Level 9.0mg/dL (8.5-10.1) Total Bilirubin 0.8mg/dL (0.0-1.2) Aspartate Amino Transf (AST/SGOT) 25U/L (0-50) Alanine Aminotransferase (ALT/SGPT) 11U/L (0-32) Alkaline Phosphatase 91U/L (25-150) Total Protein 7.7g/dL (6.4-8.4) Albumin 4.5g/dL (3.4-5.0) Hold [place] Top Tube Received (Received) Re-Eval/Medical Decision Counseled Regarding: Diagnosis, Lab results Discharge & Departure Shift Change Sign-Out Patient Care Transferred: Yes Discussed Complaint(s): Yes Laboratory Evaluation: Ordered, not yet done Imaging Studies: Ordered, not yet done Additonal Information: To Dr Webster at 1800, MRI in progress Impression: Primary Impression: Back pain Back pain location: back pain in unspecified location Chronicity: acute Back pain laterality: midline Qualified Code: M54.9 - Dorsalgia, unspecified Additional Impression: Urinary retention Discharge Condition All VS Reviewed: Yes Condition: Stable Referrals: NOPCP (PCP) Care Transferred to: Dr. Webster Care Transferred at: 18:00 Scribe Attestation Portions of this note were transcribed by Kingsley Iraheta. I, Dr. Dash personally performed the history, physical exam and medical decision-making; I reviewed and confirmed the accuracy of the information in the transcribed note. Signed by Bob Roman, 06/29/16 - 1799 Jesus Dash MD Jun 29, 2016 17:19 KINGSLEY IRAHETA Jun 29, 2016 17:26
--- NOTE | 2016-06-29 19:15 | DRSVH ---
PROCEDURE: MRI LUMBAR SPINE WITHOUT CONTRAST ([id number]) INDICATIONS: urinary retention and back pain TECHNIQUE: Noncontrast sagittal T1 spin echo and T2 fast echo, sagittal STIR, axial T1 and T2 fast spin echo thr ough the lumbar spine. In cases with scoliosis, additional coronal T2 fast spin echo may be performe d. COMPARISON: [facility], MR, MR LUMBAR SPINE WO CON, 08/04/2015, 18:28. FINDINGS: Image quality: Excellent. Alignment and Curvature: There is normal bony alignment. Bone Marrow: Marrow is of normal overall signal. No acute vertebral body compression fractures. Spinal Cord: Conus medullaris terminates at the L1 level. Visualized cord demonstrates normal signa l and size. Paraspinous Soft Tissues: No paravertebral masses. There are small T2 hyperintense foci within the uterus suggestive of fibroids which are incompletely evaluated. There is a left paracentral Tarlov c yst at level of S3 measuring approximately 1 cm. L1-L2: No spinal canal or neuroforaminal narrowing. L2-L3: Mild disc desiccation with minimal loss of disc height and a small broad-based disc bulge. Mi ld facet arthropathy also noted. There is minimal spinal canal narrowing with minimal bilateral neuro foraminal narrowing. L3-L4: Disc desiccation with a small broad-based disc bulge. There is mild to moderate facet arthrop athy and mild ligamentum flavum hypertrophy. The findings contribute to mild to moderate spinal gio l narrowing with mild bilateral neuroforaminal narrowing. L4-L5: Disc desiccation with moderate loss of disc height and a small broad-based disc bulge. There is moderate facet arthropathy. The findings contribute to mild to moderate bilateral neuroforaminal narrowing. L5-S1: Disc desiccation with mild loss of disc height and a small disc bulge. There is mild facet ar thropathy. No spinal canal narrowing. There is moderate right and [id number] left neuroforami nal narrowing. IMPRESSION: 1. No high-grade spinal canal or neuroforaminal narrowing. 2. Multilevel neuroforaminal narrowing including moderate narrowing on the right at L5-S1 with mild- to-moderate narrowing on the left, as well as [id number] bilateral narrowing at L4-5. Dictated by: Jose Rowland M.D. on 06/29/2016 at 19:00 Approved by: Jose Rowland M.D. on 06/29/2016 at 19:08
[2016-06-29 20:50] LABS: APPEARANCE,URINE CLEAR (CLEAR,HAZY); COLOR,URINE YELLOW (YELLOW); OCCULT BLOOD,URINE NEGATIVE (NEGATIVE); UROBILINOGEN,URINE NORMAL (NORMAL)
[2016-06-29] MEDS ORDERED: _oxyCODONE/APAP 5-325 mg Tablet PO PRN (21:20)
[2016-06-29 22:09] VITALS: BP 105/79; PULSE 71; RESP 16; O2SAT 97
== END 2016-06-29 22:14 | disposition home or self-care (01) ==
LOC: SED 15:23
DX: M54.9 Dorsalgia, unspecified (principal); R33.9 Retention of urine, unspecified; I10 Essential (primary) hypertension; Z87.891 Personal history of nicotine dependence; Z88.1 Allergy status to other antibiotic agents; Z88.8 Allergy status to other drugs, medicaments and biological substances
CPT/HCPCS: 36415; 72148; 80053; 81000; 85025; 96374; 96375; 96376; 99285; J1170; J1885; J2060

== ENCOUNTER 2016-07-28 16:50 | Emergency (ER) | payer OTHER ==
[~2016-07-28] VITALS: Ht 175.3 cm; Wt 125.5 kg
[~2016-07-28 16:50] MED LIST changes: -DIAZ2TAB2 PO; -DULO30CA50 PO; -OXYC-466 PO; -PRE20 PO; -PREG225C PO; -PROM25TA14 PO; -TIZA4TAB4 PO; -TRAZ-115 PO; -ZIT250 PO
[2016-07-28 16:55] VITALS: PULSE 121; RESP 18; O2SAT 98
--- NOTE | 2016-07-28 17:20 | ED.REPORT ---
HPI-Trauma Minor / Fall Date of Service Jul 28, 2016 ED Provider: Dr. Higgins 41 y/o female presents to the ED complaining of mid back pain secondary to fall from a set of stairs. Associated sx include headache, numbness in hands and diminished sensation on the right side of the body. Pt reportedly also had urinary incontinence. Pt denies chest pain, abdominal pain, neck pain and syncope or injuring her head upon fall. Pt was able to ambulate after the fall. Pt typically takes Tylenol for pain. Nursing Notes Stated Complaint: FALL OVER STAIRS BACK AND LEG PAIN Chief Complaint: Multiple Trauma/Fall Nursing Notes Reviewed: Yes Allergies: Coded Allergies: nitrofurantoin (Verified Allergy, Severe, Hives, stopped breathing, ) amoxicillin (Verified Allergy, Intermediate, Hives, 04/29/16) TOLERATED KEFLEX IN PAST morphine (Verified Allergy, Intermediate, dyspnea, hives, 04/29/16) Scheduled PRN Clonazepam (Clonazepam) 1 Mg Tablet 1 MG PO TID PRN PRN For Anxiety Ibuprofen (Ibuprofen) 800 Mg Tablet 800 MG PO QID PRN PRN For Pain Naproxen (Naproxen) 500 Mg Tab 500 MG PO BID PRN PRN For Pain General Time Seen by MD: 17:19 Chief Complaint Fall, Other (back pain) Hx Obtained From: Patient Arrived By: Walk-in Onset Occurred: Just prior to arrival Symptom Duration: Since onset Caused by: Fall on ground Location: Back Quality: Painful Severity: Current: Severe Severity: Maximum: Severe Recent Healthcare: Recent doctor visit Similar Sx Previous: No Past Medical History Past Medical History Herniated discs Anxiety History depression History of heart murmur as Hypertension, not on medications History polycystic ovarian syndrome Obesity Meniscectomy L4-L5 ho reported transverse myelitis Past Surgical History Tubal ligation Laminectomy L4-L5 in 2009 He sections in 2000, 2013 Hysteroscopy Reports: , Tonsillectomy Family History Noncontributory Smoking History Former Smoker Social History Alcohol Use: Denies alcohol use Drug Use: Denies drug use Occupation lives with boyfriend Ambulatory Status Independent Review of Systems Diminished sensation on the right side of the body. Musculoskeletal: Reports: Back pain, Denies: Neck pain Neurologic: Reports: Bladder dysfunction, Headache, Numbness (hands), Denies: Change LOC, Syncope Complete sys rev & neg: except as marked. Cardiovascular: Denies: Chest pain GI: Denies: Abdominal pain Physical Exam Initial Vital Signs Vital Signs (First) Date Time Temp Pulse Resp B/P Pulse Ox O2 Delivery O2 Flow Rate FiO2 07/28/16 16:55 121 18 98 Room Air 07/28/16 18:12 137/110 07/28/16 20:27 36.8 Initial VS: Reviewed, Vital signs normal Head / Eyes: Atraumatic, Normocephalic Respiratory: No respiratory distress Abdomen / GI: Soft, Non-tender Skin: Warm, Dry, No cyanosis Neurologic: Alert, Oriented, Nonfocal Psychiatric: Mood/affect normal, Behavior normal, Normal thought content General/Constitutional: Awake, Alert, Cooperative, Not toxic appearing Neck: Atraumatic, Full range of motion, No midline vertebral tend Cardiovascular: Regular rhythm Heart Rate / Rhythm: Positive: Tachycardia Back: Atraumatic Mid thoracic TTP Upper Extremity / MS: Atraumatic, Full range of motion Lower Extremity / Pelvis / MS: Atraumatic, Neurologic intact, Vascular intact Neurologic: Oriented X3, Speech NL Diminished sensation to pinprick from forehead to toes on the right side. Interpretation & Diagnostics Interpretation & Diagnostics: PROCEDURE: CT CHEST, ABDOMEN AND PELVIS WITH CONTRAST ([id number]) IMPRESSION: 1. No definite acute traumatic abnormality in the chest, abdomen, or pelvis. 2. Hepatic steatosis. 3. Probable corpus luteal cyst in the right ovary. 4. Small left paracentral cystic lesion in the uterine fundus is nonspecific. Further evaluation may be obtained with ultrasound if clinically indicated. Dictated by: Jose Rowland M.D. on 07/28/2016 at 19:18 Approved by: Jose Rowland M.D. on 07/28/2016 at 19:23 Lab Results Interpretation Result Diagram: 07/28/16 1740 07/28/16 1740 Test 07/28/16 17:40 White Blood Count 14.1th/mm3 (3.8-10.1) Red Blood Count 4.35mil/mm3 (3.90-5.20) Hemoglobin 14.5g/dL (12.0-15.6) Hematocrit 41.2% (35.0-46.0) Mean Corpuscular Volume 94.7fL (81-100) Mean Corpuscular Hemoglobin 33.3pg (27.0-35.0) Mean Corpuscular Hemoglobin Concent 35.2% (32.0-37.0) Red Cell Distribution Width 13.3% (12.3-15.4) Platelet Count 308bil/L (150-400) Neutrophils (%) (Auto) 61.9% (40-74) Lymphocytes (%) (Auto) 27.9% (14-46) Monocytes (%) (Auto) 6.8% (4-12) Eosinophils (%) (Auto) 2.8% (0-5) Basophils (%) (Auto) 0.2% (0-3) Prothrombin Time 10.0sec (8.1-12.5) Prothromb Time International Ratio 0.94ratio Activated Partial Thromboplast Time 30.1sec (22.8-33.0) Sodium Level 137mEq/L (134-144) Potassium Level 4.3mEq/L (3.5-5.2) Chloride Level 102mEq/L (97-108) Carbon Dioxide Level 19mmol/L (18-29) Blood Urea Nitrogen 12mg/dL (6-24) Creatinine 0.91mg/dL (0.57-1.00) Estimat Glomerular Filtration Rate 98mL/min (>59) Glucose Level 123mg/dL (60-99) Calcium Level 9.2mg/dL (8.5-10.1) Total Bilirubin 0.5mg/dL (0.0-1.2) Aspartate Amino Transf (AST/SGOT) 20U/L (0-50) Alanine Aminotransferase (ALT/SGPT) 9U/L (0-32) Alkaline Phosphatase 76U/L (25-150) Total Protein 7.6g/dL (6.4-8.4) Albumin 4.2g/dL (3.4-5.0) Human Chorionic Gonadotropin, Qual Negative (Negative) Alcohols < 10mg/dL (0-10) CT Head Interpretation IMPRESSION: 1. No acute intracranial abnormality. Dictated by: Jose Rowland M.D. on 07/28/2016 at 18:59 Approved by: Jose Rowland M.D. on 07/28/2016 at 19:01 Study: Head CT no contrast Interpretation / Wet Read by: Interpret - Radiologist CT Abd / Pelvis Interpretation CT C-Spine Interpretation IMPRESSION: 1. No fracture or subluxation. Dictated by: Jose Rowland M.D. on 07/28/2016 at 19:01 Approved by: Jose Rowland M.D. on 07/28/2016 at 19:02 Study type: CT no contrast Interpretation / Wet Read by: Interpret - Radiologist Re-Eval/Medical Decision Med Decision/Clinical Course The patient's mechanism does not explain her reported findings or clinical presentation however she presents in severe distress complaining of back pain and reportedly right-sided numbness that ultimately does not seem to fit appropriate pattern of neurologic injury or trauma. There are no objective findings on CT scan. She has passed her road test. I do not think that there is a physiologic cause for her reported numb feeling. Specifically I do not think that she has focal spinal cord or cerebral injury, I do not suspect that this is cauda equina syndrome. She will be discharged with strict return and follow-up precautions. Source of Hx: Old records Re-Evaluation/Progress #1: Time of Eval: 18:32 Patient Status: Condition improved Re-Evaluation/Progress Note: Rechecked pt. Pt reports that pain med "helped little bit". However, there has been little change in diminished sensation on the right side. On reeval she says both LE reporteldy numb w/o motor loss. Re-Evaluation/Progress #2: Time of Eval: 19:00 Re-Evaluation/Progress Note: Updated of imaging. Re-Evaluation/Progress #3: Time of Eval: 19:56 Re-Evaluation/Progress Note: d/c home. Passed road test. Discussed plan for discharge and follow up. All questions addressed. Counseled Regarding: Diagnosis, Lab results, Need for follow-up, When/why to return to ED Discharge & Departure Impression: Primary Impression: Back contusion Encounter type: initial encounter Laterality: unspecified laterality Qualified Code: S20.229A - Contusion of unspecified back wall of thorax, initial encounter Disposition: Home Discharge Condition All VS Reviewed: Yes Condition: Stable Additional Instructions: No obvious dramatic injuries can be found. Use ice packs, rest, and naproxen as needed for pain. Follow-up with your primary care doctor or return to the closest ER if you develop worsening or concerning symptoms. Referrals: [facility] Res[facility] Scribe Attestation Portions of this note were transcribed by Fatuma Padgett and Ann Booker. I, personally performed the history, physical exam and medical decision-making;I reviewed and confirmed the accuracy of the information in the transcribed note. Signed by Fatuma Padgett and Ann Booker, Bob. 07/28/16. [id number] copies to: [facility] Rickie Higgins DO Jul 28, 2016 17:20 Fatuma Padgett Jul 28, 2016 17:31 Ann Booker Jul 28, 2016 21:12
[2016-07-28] MEDS ORDERED: 0.9% Sodium Chloride 1,000 ML IV ONE (17:32)
[2016-07-28] MEDS ORDERED: Ondansetron 2 mg/mL 2 mL Inj IVPUSH PRN (17:35)
[2016-07-28 17:55] LABS: BASOPHILS % (AUTO) 0.2 % (0-3); EOSINOPHILS % (AUTO) 2.8 % (0-5); MONOCYTES % (AUTO) 6.8 % (4-12); Mean Corpuscular Hemoglobin 33.3 pg (27.0-35.0); Mean Corpuscular Volume 94.7 fL (81-100); NEUTROPHILS % (AUTO) 61.9 % (40-74); Platelet Count 308 bil/L (150-400)
[2016-07-28 18:09] LABS: INR 0.94 ratio
[2016-07-28] MEDS: HYDROmorphone 0.5 mg/0.5 mL iSecure Syringe IVPUSH PRN ×2 (18:11→18:47)
[2016-07-28 18:12] VITALS: BP 137/110; PULSE 107; RESP 16; O2SAT 98
--- NOTE | 2016-07-28 19:02 | DRSVH ---
PROCEDURE: CT BRAIN WITHOUT CONTRAST ([id number]) INDICATIONS: trauma, back pain, numbness in extremities TECHNIQUE: Noncontrast 4.5 mm thick angled axial sections acquired from the foramen magnum to the vertex, with c oronal reformats. COMPARISON: [facility], CT, CT BRAIN WO CON, 04/24/2016, 21:27. FINDINGS: Image quality: Excellent. CSF spaces: Basal cisterns are patent. No extra-axial fluid collections. Ventricles are normal in size and shape. Brain: No intracranial hemorrhage, mass, or mass effect. Fregoso-white matter interface is preserved. Skull and face: Calvarium and visualized facial bones are intact, without suspicious lesions. Sinuses: Visualized sinuses and mastoids are clear. IMPRESSION: 1. No acute intracranial abnormality. Dictated by: Jose Rowland M.D. on 07/28/2016 at 18:59 Approved by: Jose Rowland M.D. on 07/28/2016 at 19:01
--- NOTE | 2016-07-28 19:04 | DRSVH ---
PROCEDURE: CT CERVICAL SPINE WITHOUT CONTRAST ([id number]) INDICATIONS: trauma, back pain, numbness in extremities TECHNIQUE: Noncontrast 3 mm thick sections acquired from the skull base to the T4 level. Sagittal and coronal r eformats were then constructed. For radiation dose reduction, the following was used: automated exp osure control, adjustment of mA and/or kV according to patient size. COMPARISON: [facility], MR, MR CERVICAL SPINE W&WO CON, 01/20/2016, 1:27. FINDINGS: Image quality: Excellent. Bones: No fractures or dislocations. There is straightening of the cervical lordosis. Visualized dennis perior ribs are intact. Soft tissues: Prevertebral soft tissues are normal in thickness. No paravertebral hematomas. No ap ical pneumothoraces. There are groundglass opacities in the visualized lung apices which are nonspec ific and may represent atelectasis. IMPRESSION: 1. No fracture or subluxation. Dictated by: Jose Rowland M.D. on 07/28/2016 at 19:01 Approved by: Jose Rowland M.D. on 07/28/2016 at 19:02
--- NOTE | 2016-07-28 19:26 | DRSVH ---
PROCEDURE: CT CHEST, ABDOMEN AND PELVIS WITH CONTRAST ([id number]) INDICATIONS: trauma, back pain, numbness in extremities TECHNIQUE: After the administration of intravenous contrast, 5 mm thick sections acquired from the lung apices t o the symphysis. 5 mm thick coronal and sagittal reformats were acquired. Additional 7 mm thick cor onal maximum intensity projection (MIP) reformats acquired through the lungs. Optional 10-minute del ayed imaging may be performed from the kidneys to the bladder. For radiation dose reduction, the fol lowing was used: automated exposure control, adjustment of mA and/or kV according to patient size. COMPARISON: None. FINDINGS: Image quality: There is slight motion artifact. CHEST: Lungs: There is mild dependent atelectasis bilaterally. No definite pulmonary contusions or lacerat ions. No pneumothorax or hemothorax. Central and peripheral airways appear patent and normal in donya iber. Mediastinum: No mediastinal hematomas. Heart size is normal. No pericardial effusion. Thoracic ao rta and pulmonary arteries demonstrate normal size and enhancement. No mediastinal or hilar adenopat hy. There is mild concentric wall thickening of the distal esophagus. No hiatal hernia. Chest wall: No rib fractures. No subcutaneous emphysema. No axillary or supraclavicular adenopathy . Thyroid gland is partially visualized with no discrete nodule identified. ABDOMEN: Solid organs: There is hypoattenuation of the liver consistent with fatty infiltration with mild tilt of sparing along the gallbladder fossa. The spleen is normal in size. No hepatic or splenic lacera tions. Gallbladder appears within normal limits without calcified gallstones. Biliary system is non -dilated. Pancreas enhances normally, without transection. No adrenal hematomas. Both kidneys enha nce normally, without hydronephrosis or lacerations. Peritoneum and bowel: No free fluid or air. Unenhanced bowel loops demonstrate normal wall thicknes s and caliber. Nodes and vessels: No retroperitoneal or mesenteric adenopathy. Aorta and inferior vena cava are no rmal in size and enhancement. Miscellaneous: No ventral hernias. PELVIS: Genitourinary: Bladder wall thickness is normal. There is a small peripherally enhancing cyst in th e right ovary compatible with a corpus luteal cyst. There is a small hypoattenuating cystic lesion i n the left uterine fundus measuring up to 1.1 cm. Miscellaneous: No inguinal hernias or adenopathy. Bones: Pelvic ring and hip joints appear intact. No vertebral compression fractures. IMPRESSION: 1. No definite acute traumatic abnormality in the chest, abdomen, or pelvis. 2. Hepatic steatosis. 3. Probable corpus luteal cyst in the right ovary. 4. Small left paracentral cystic lesion in the uterine fundus is nonspecific. Further evaluation ma y be obtained with ultrasound if clinically indicated. Dictated by: Jose Rowland M.D. on 07/28/2016 at 19:18 Approved by: Jose Rowland M.D. on 07/28/2016 at 19:23
[2016-07-28 19:48] VITALS: BP 101/66; PULSE 101; RESP 20; O2SAT 98
[2016-07-28] MEDS ORDERED: NPR500T PO (20:07)
[2016-07-28 20:27] VITALS: BP 149/105; PULSE 105; RESP 16; O2SAT 98
[2016-07-29] MEDS ORDERED: OXYC1TAB24 PO (23:30)
== END 2016-07-28 20:29 | disposition home or self-care (01) ==
LOC: SED 17:46
DX: S20.229A Contusion of unspecified back wall of thorax, initial encounter (principal); W10.8XXA Fall (on) (from) other stairs and steps, initial encounter; Y93.9 Activity, unspecified; Y92.9 Unspecified place or not applicable; Y99.9 Unspecified external cause status; I10 Essential (primary) hypertension; Z87.891 Personal history of nicotine dependence; Z88.1 Allergy status to other antibiotic agents; Z88.5 Allergy status to narcotic agent
CPT/HCPCS: 36415; 70450; 71260; 72125; 74177; 80053; 84703; 85025; 85610; 85730; 86850; 96374; 96375; 96376; 99285; G0480; J1170; J1885; J2060; J2405; Q9967

== ENCOUNTER 2016-07-29 20:42 | Emergency (ER) | payer OTHER ==
[~2016-07-29] VITALS: Ht 175.3 cm; Wt 124.0 kg
[~2016-07-29 20:42] MED LIST changes: +NPR500T PO
[2016-07-29 21:12] VITALS: BP 130/95; PULSE 111; RESP 20; O2SAT 98
--- NOTE | 2016-07-29 21:25 | ED.REPORT ---
HPI-Back Pain 40 and Over Date of Service Jul 29, 2016 ED Provider: Mike Aparicio MD Patient is a 41 year old female who was seen in the ED yesterday for a back contusion who presents to the ED complaining of worsening back pain onset two days ago. Associated symptoms include shortness of breath, shaking, incontinence and numbness in her right arm and leg. Patient reports that the pain her shortness of breath started just prior to arrival when she tried to lay down. She states that the pain is in her mid lumbar region to her thoracic area and radiates up to her neck. Patient saw her primary care physician earlier today who recommended she take some pain medication. Prior to arrival to the ED, the patient took Ibuprofen with no relief. Nursing Notes Stated Complaint: BACK PAIN Chief Complaint: Back Pain or Injury Nursing Notes Reviewed: Yes (IRI, [employer] not reconciled) Allergies: Coded Allergies: nitrofurantoin (Verified Allergy, Severe, Hives, stopped breathing, ) amoxicillin (Verified Allergy, Intermediate, Hives, 04/29/16) TOLERATED KEFLEX IN PAST morphine (Verified Allergy, Intermediate, dyspnea, hives, 04/29/16) Scheduled PRN Clonazepam (Clonazepam) 1 Mg Tablet 1 MG PO TID PRN PRN For Anxiety Ibuprofen (Ibuprofen) 800 Mg Tablet 800 MG PO QID PRN PRN For Pain Naproxen (Naproxen) 500 Mg Tab 500 MG PO BID PRN PRN For Pain oxyCODONE-Acetaminophen 5-325 mg (oxyCODONE-Acetaminophen 5-325 mg) 1 Each Tablet 1-2 TAB PO Q6H PRN PRN For Pain General Time Seen by MD: 21:19 Chief Complaint Back pain Hx Obtained From: Patient Arrived By: Walk-in Sudden in Onset?: Yes Onset Occurred: 2 days ago Symptom Duration: Since onset Caused by: Fall Location: : Spinal lumbar area: Spinal thoracic area Radiation: : Neck Recent Healthcare: Recent doctor visit Similar Sx Previous: Yes Past Medical History Past Medical History Notes: Patient seen yesterday in ED c/o Back pain after fall: CT negative Patient seen in ED 06/29/16 for back pain - No high grade stenosis on MRI Past Medical History Herniated discs seizures cellulitis Anxiety History depression History of heart murmur as infant Hypertension, not on medications History polycystic ovarian syndrome Obesity Meniscectomy L4-L5 ho reported transverse myelitis Reports: HIV Past Surgical History Tubal ligation Laminectomy L4-L5 in 2009 He sections in 2000, 2013 Hysteroscopy Reports: , Tonsillectomy Family History Noncontributory Smoking History Former Smoker Social History Alcohol Use: Denies alcohol use Drug Use: Denies drug use Occupation lives with boyfriend Ambulatory Status Independent Review of Systems Respiratory: Reports: Dyspnea on exertion, Shortness of breath, Denies: Non-productive cough Female: Reports: Incontinence Musculoskeletal: Reports: Back pain, Neck pain Neurologic: Reports: Numbness (right arm and leg), Shaking Complete sys rev & neg: except as marked. Physical Exam Physical Exam Notes: hyperventilating Initial Vital Signs Vital Signs (First) Date Time Temp Pulse Resp B/P Pulse Ox O2 Delivery O2 Flow Rate FiO2 07/29/16 21:12 36.4 111 20 130/95 98 Room Air Initial VS: Reviewed General/Constitutional: Awake, Alert Behavior: Positive: Anxious Appearance / Presentation: Positive: Obese able to answer questions normally Respiratory / Chest: Atraumatic, Breath sounds NL, Breath sounds = bilat, No respiratory distress Cardiovascular: Heart rate NL, Regular rhythm, Heart sounds NL Abdomen: Atraumatic, Soft, Non-tender Back: Atraumatic, Full range of motion Neurologic: Oriented X3, Speech NL, No motor deficits, No sensory deficits Neck: Atraumatic, Supple, Full range of motion Lower Extremity / Pelvis / MS: Atraumatic, Full range of motion plantar and dorsal flexion in both legs Skin: Atraumatic, Color NL, No rash, Warm, Dry Head / Eyes: Atraumatic, Normocephalic, PERRL, EOMI ENT: Atraumatic, Airway patent, Mucous membranes moist UPPER EXTREMITIES: plantar and dorsal flexion in both arms Psychiatric: Affect NL, Mood NL Interpretation & Diagnostics Lab Results Interpretation Test 07/29/16 21:35 Hold Purple Top Tube Received (Received) Hold Blue Top Tube Received (Received) Hold Red Top Tube Received (Received) Hold Stephan Top Tube Received (Received) Hold Vail Top Tube Received (Received) Re-Eval/Medical Decision Med Decision/Clinical Course This is a 41-year-old female who presents with uncontrolled back pain. Patient had a fall yesterday, and had CT imaging that was negative done yesterday. I reviewed the records also indicate she has had MR imaging a month ago for spine. No acute surgical pathology was identified. The patient for she is having uncontrolled pain, try to go the bathroom and just felt terrible. She is shaking from the pain. She saw her PCP today. She has been taking Aleve with no relief. She is still having some numbness in the leg had before the sciatica. No nilam weakness. Initial nurses note suggest a a possible seizure, to me the patient portion just rapidly breathing and feels short of breath she attributes to the pain. He is initially hyperventilating on my exam. I do not get a clear history describing an overt seizure. I get no history to point me as an acute neurologic event or need for acute/emergent neuro imaging. Patient received pain medicine, with improvement I am not finding indication for further emergent imaging. She has been discharged with some oxycodone, advised to continue the Aleve, as to follow-up with her PCP next week. Patient is much improved on re-evaluation. Routine and return precautions reviewed. Source of Hx: Old records Re-Evaluation/Progress #1: Time of Eval: 22:21 Patient Status: Pain improved Re-Evaluation/Progress Note: Rechecked patient whose condition has improved. Re-Evaluation/Progress #2: Time of Eval: 22:45 Patient Status: Condition improved Re-Evaluation/Progress Note: Discussed previous CT results from 07/28/16.Patient reports that her last dose of Aleve was at 1100 this morning, give another dose of pain medication before discharge. Re-Evaluation/Progress #3: Time of Eval: 23:16 Patient Status: Pain improved Re-Evaluation/Progress Note: Discussed plan for discharge and plan for treatment. The patient understands and agrees to the plan for discharge. All questions were addressed. Differential Diagnosis: Positive: Musculoskeletal pain, Negative: Abdominal aortic aneurysm, Aortic dissection, Cauda equina syndrome , Ectopic , Epidural abscess, Epidural hematoma, Fracture, Neoplasm, Osteomyelitis, Pancreatitis, Pyelonephritis, Sciatica, Spinal mass, Thoracic aortic dissect Counseled Regarding: Diagnosis, Need for follow-up, When/why to return to ED Discharge & Departure Impression: Primary Impression: Back pain Back pain location: low back pain Chronicity: unspecified Back pain laterality: unspecified Sciatica presence: unspecified whether sciatica present Qualified Code: M54.5 - Low back pain Disposition: Home Discharge Condition All VS Reviewed: Yes Condition: Stable Additional Instructions: 1. You had a CT Scan of the Chest/Abdomen and spine yesterday - no fractures or internal injuries were appreciated. You had an MRI of the spine last month with no findings of severe or emergent spinal stenosis. 2. No heavy lifting. 3. Other activities as tolerated 4. Continue to use heat for comfort. 5. Continue to take aleve 500mg twice a day. 6. If needed for more severe pain take oxycodone/APAP 5/325 1-2 tabs up to every 6 hours. Use sparingly. Note: This medication contains narcotics which causes drowsiness. Use only if needed for severe pain. No driving for at least 4-6 hours after taking. Referrals: [facility] Res[facility] Scribe Attestation Portions of this note were transcribed by Sugar Ortiz and Ann Booker. I, Dr. Bradshaw personally performed the history, physical exam and medical decision- making; I reviewed and confirmed the accuracy of the information in the transcribed note. Signed by: Sugar Ortiz and Bob Meek, 07/29/16 and 2339. copies to: [facility] Mike Aparicio MD Jul 29, 2016 21:25 Kim Ortiz Jul 29, 2016 21:54
[2016-07-29] MEDS ORDERED: Ondansetron 8 mg ODT Tablet PO ONE (21:45)
[2016-07-29] MEDS ORDERED: HYDROmorphone 1 mg/mL Inj IM ONE (21:45)
[2016-07-29] MEDS ORDERED: _Ondansetron ODT 4 mg Tablet PO PRN (22:30)
[2016-07-29] MEDS ORDERED: _oxyCODONE/APAP 5-325 mg Tablet PO PRN (22:30)
[2016-07-29 23:09] VITALS: BP 132/82; PULSE 83; RESP 14; O2SAT 95
[2016-07-29] MEDS ORDERED: HYDROmorphone 0.5 mg/0.5 mL iSecure Syringe IVPUSH ONE (23:25)
[2016-07-29] MEDS ORDERED: OXYC1TAB24 PO (23:30)
[2016-07-30 00:05] VITALS: BP 136/80; PULSE 78; RESP 16; O2SAT 97
== END 2016-07-30 00:05 | disposition home or self-care (01) ==
LOC: SED 20:42
DX: M54.5 Low back pain (principal); W19.XXXA Unspecified fall, initial encounter; Y93.9 Activity, unspecified; Y92.89 Other specified places as the place of occurrence of the external cause; Y99.9 Unspecified external cause status; R06.02 Shortness of breath; R25.1 Tremor, unspecified; R20.0 Anesthesia of skin; R32 Unspecified urinary incontinence; I10 Essential (primary) hypertension; B20 Human immunodeficiency virus [HIV] disease; Z87.891 Personal history of nicotine dependence; Z88.1 Allergy status to other antibiotic agents; Z88.5 Allergy status to narcotic agent; Z88.8 Allergy status to other drugs, medicaments and biological substances
CPT/HCPCS: 96372; 96374; 96375; 99284; J1170; J1885; J2060

== ENCOUNTER 2016-08-26 20:44 | Emergency (ER) | payer OTHER ==
[~2016-08-26] VITALS: Ht 175.3 cm; Wt 118.2 kg
[~2016-08-26 20:44] MED LIST changes: +OXYC1TAB24 PO
[2016-08-26 20:54] VITALS: BP 138/103; PULSE 118; RESP 18; O2SAT 98
--- NOTE | 2016-08-26 22:09 | ED.REPORT ---
HPI-Back Pain 40 and Over Date of Service August 26, 2016 ED Provider: Dr. Will Hendricks M.D. A 41 year old female with a medical history including herniated discs, seizures , HIV, and hypertension s/p L4-L5 laminectomy and meniscectomy presents to the ED with thoracic back pain onset suddenly this morning while moving furniture. At onset the patient's legs went numb bilaterally. She denies leg weakness, bowel incontinence, urinary incontinence, or other symptoms. The patient was in the ED on 07/29/16 with similar symptoms. She is currently in the process of establishing a new PCP. Nursing Notes Stated Complaint: BACK PAIN/LEG NUMBNESS Chief Complaint: Back Pain or Injury Nursing Notes Reviewed: Yes Allergies: Coded Allergies: nitrofurantoin (Verified Allergy, Severe, Hives, stopped breathing, ) amoxicillin (Verified Allergy, Intermediate, Hives, 08/26/16) TOLERATED KEFLEX IN PAST morphine (Verified Allergy, Intermediate, dyspnea, hives, 08/26/16) Scheduled Dexamethasone (Dexamethasone) 4 Mg Tablet 4 MG PO BID Methocarbamol (Robaxin-750) 750 Mg Tablet 1,500 MG PO QID Scheduled PRN Clonazepam (Clonazepam) 1 Mg Tablet 1 MG PO TID PRN PRN For Anxiety Ibuprofen (Ibuprofen) 800 Mg Tablet 800 MG PO QID PRN PRN For Pain Naproxen (Naproxen) 500 Mg Tab 500 MG PO BID PRN PRN For Pain oxyCODONE-Acetaminophen 5-325 mg (oxyCODONE-Acetaminophen 5-325 mg) 1 Each Tablet 1-2 TAB PO Q6H PRN PRN For Pain General Time Seen by MD: 22:09 Chief Complaint Back pain Hx Obtained From: Patient Arrived By: Walk-in Sudden in Onset?: Yes Onset Occurred: 9 - 12 hours ago Symptom Duration: Since onset Caused by: Lifting Location: : Perispinal thoracic: Spinal thoracic area Quality: Painful Severity: Current: Moderate Severity: Maximum: Moderate Pertinent Negative: Relieved by nothing Related History: Reports: Spinal surgery Recent Healthcare: Recent doctor visit Similar Sx Previous: Yes Past Medical History Past Medical History Notes: Patient seen in ED 06/29/16 for back pain - No high grade stenosis on MRI Several ED visits for back pain Past Medical History Herniated discs Seizures Cellulitis Anxiety History depression History of heart murmur as infant Hypertension, not on medications History polycystic ovarian syndrome Obesity ho reported transverse myelitis Reports: HIV Past Surgical History Tubal ligation Laminectomy L4-L5 in 2009 He sections in 2000, 2014 Hysteroscopy Meniscectomy L4-L5 Reports: , Tonsillectomy Family History Noncontributory Smoking History Former Smoker Social History Alcohol Use: Denies alcohol use Drug Use: Denies drug use Occupation lives with boyfriend Ambulatory Status Independent Review of Systems Constitutional: Denies: Fever Respiratory: Denies: Non-productive cough, Shortness of breath GI: Denies: Diarrhea, Vomiting Female: Denies: Incontinence Musculoskeletal: Reports: Back pain (Thoracic) Neurologic: Reports: Numbness (Bilateral legs), Denies: Bladder dysfunction, Bowel dysfunction, Focal weakness Complete sys rev & neg: except as marked. Physical Exam Initial Vital Signs Vital Signs (First) Date Time Temp Pulse Resp B/P Pulse Ox O2 Delivery O2 Flow Rate FiO2 08/26/16 20:54 37.0 118 18 138/103 98 Room Air Initial VS: Reviewed Head / Eyes: Atraumatic, Normocephalic ENT: Conjunctiva normal, No scleral icterus Neck: Supple, Full range of motion Skin: Warm, Dry, No cyanosis Psychiatric: Mood/affect normal, Behavior normal, Normal thought content General/Constitutional: Awake, Alert Appearance / Presentation: Positive: Uncomfortable Patient is rigid and guarded, braced in the bed Abdomen: Soft, Non-tender Neurologic: Oriented X3, Speech NL, No motor deficits, Reflexes equal bilat No objective findings of decreased sensation but patient reports subjective decreased sensation in bilateral legs Re-Eval/Medical Decision Med Decision/Clinical Course 41-year-old with chronic recurrent back pain presents after a trivial movement moving furniture caused pain in her back and tingling down both legs. Symptoms are symmetric. No indication of actual reflex loss, motor loss, or any more than subjective sensory loss. She is improved here after Decadron and Robaxin in addition to her standing meds. She does not take Vicodin or Percocet frequently, despite multiple prescriptions in the month of July. She says she has uses home and they cannot be represcribed in any case. Discharged home with Robaxin, brief Decadron course at four twice a day, and plan for follow-up at residency clinic. Source of Hx: Old records Re-Evaluation/Progress : Time of Eval: 23:33 Patient Status: Condition improved Re-Evaluation/Progress Note: Patient's pain has much improved. Discussed with patient diagnosis and plan for discharge. Follow-up and return to the ER instructions given. Patient agrees with plan for care and all questions were addressed. Counseled Regarding: Diagnosis, Need for follow-up, When/why to return to ED Discharge & Departure Shift Change Sign-Out Response to Therapy: Improved Impression: Primary Impression: Low back pain Chronicity: unspecified Back pain laterality: bilateral Sciatica presence: with sciatica Sciatica laterality: bilateral sciatica Qualified Code: M54.42 - Lumbago with sciatica, left side Additional Impression: Sciatica Laterality: bilateral Qualified Code: M54.31 - Sciatica, right side Disposition: Home Discharge Condition All VS Reviewed: Yes Condition: Improved Patient Instructions: Acute Low Back Pain (ED), Sciatica (ED) Additional Instructions: Rest, heat, and avoid bending, lifting, and moving furniture. 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 Decadron twice daily for four days Robaxin four times daily. Do not take ibuprofen on top of full dose meloxicam. Both are nonsteroidal anti -inflammatories, and a maximum dose of the one is doing all that can be done. You can induce kidney toxicity was too much nonsteroidal medicine. Sparing use of Vicodin or Percocet as needed. Return if any immediate issues. Referrals: NOPCP (PCP) [facility] Scribe Attestation Portions of this note were transcribed by Bela Penn. I, Dr. Hendricks, personally performed the history, physical exam, and medical decision-making; I reviewed and confirmed the accuracy of the information in the transcribed note. Signed by: Bob Covarrubias, 08/27/2016, 00:55 copies to: [facility] Will Hendricks MD August 26, 2016 22:09 BELA PENN August 26, 2016 22:17
[2016-08-26] MEDS ORDERED: Dexamethasone 20 mg/2 mL Oral Solution PO ONE (22:20)
[2016-08-26] MEDS ORDERED: DXM4T PO (23:31)
[2016-08-26] MEDS ORDERED: METH-313 PO (23:31)
[2016-08-26 23:53] VITALS: BP 141/98; PULSE 92; RESP 16; RESP 20; O2SAT 97; O2SAT 98
== END 2016-08-26 23:54 | disposition home or self-care (01) ==
LOC: SED 20:44
DX: M54.42 Lumbago with sciatica, left side (principal); M54.31 Sciatica, right side; X50.0XXA Overexertion from strenuous movement or load, initial encounter; Y93.89 Activity, other specified; Y92.89 Other specified places as the place of occurrence of the external cause; Y99.8 Other external cause status; I10 Essential (primary) hypertension; Z87.891 Personal history of nicotine dependence; Z88.1 Allergy status to other antibiotic agents; Z88.5 Allergy status to narcotic agent; Z88.8 Allergy status to other drugs, medicaments and biological substances; B20 Human immunodeficiency virus [HIV] disease; Z98.890 Other specified postprocedural states

== ENCOUNTER 2016-09-22 20:12 | Emergency (ER) | payer OTHER ==
[~2016-09-22] VITALS: Ht 175.3 cm; Wt 125.9 kg
[~2016-09-22 20:12] MED LIST changes: +DXM4T PO; +METH-313 PO
[2016-09-22 20:25] VITALS: BP 145/78; PULSE 102; RESP 16; O2SAT 99
--- NOTE | 2016-09-22 21:16 | ED.REPORT ---
HPI-Extremity Problem Lower Date of Service Sep 22, 2016 ED Provider: Pedro Downs MD Patient is a 41 year old female who presents to the ED due to a right foot injury. The patient reports that she had a needle stuck between her 4th and 5th toe on her right foot and recently had surgery to have it removed. She complains of increasing pain, redness and that the wound won't stop bleeding. Patient states that it hurts to move. The surgeons left part of the needle in the foot because it was stuck in her bone. She also states that she had the stitches removed earlier than scheduled and it has been bleeding since the sutures were removed. Nursing Notes Stated Complaint: FOOT BLEEDING FROM SURGICAL INCISION Chief Complaint: Extremity Trauma Nursing Notes Reviewed: Yes Allergies: Coded Allergies: nitrofurantoin (Verified Allergy, Severe, Hives, stopped breathing, ) amoxicillin (Verified Allergy, Intermediate, Hives, 08/26/16) TOLERATED KEFLEX IN PAST morphine (Verified Allergy, Intermediate, dyspnea, hives, 08/26/16) Scheduled Dexamethasone (Dexamethasone) 4 Mg Tablet 4 MG PO BID Methocarbamol (Robaxin-750) 750 Mg Tablet 1,500 MG PO QID Scheduled PRN Clonazepam (Clonazepam) 1 Mg Tablet 1 MG PO TID PRN PRN For Anxiety Ibuprofen (Ibuprofen) 800 Mg Tablet 800 MG PO QID PRN PRN For Pain Naproxen (Naproxen) 500 Mg Tab 500 MG PO BID PRN PRN For Pain oxyCODONE-Acetaminophen 5-325 mg (oxyCODONE-Acetaminophen 5-325 mg) 1 Each Tablet 1-2 TAB PO Q6H PRN PRN For Pain General Time Seen by MD: 21:14 Chief Complaint Foot injury right Hx Obtained From: Patient Arrived By: Walk-in Symptom Duration: Since onset Location: : Toe right 4: Toe right 5 Quality: Painful Severity: Current: Severe Exacerbated by: Movement Recent Healthcare: No recent hospitalization, Recent doctor visit Similar Sx Previous: No Past Medical History Past Medical History Notes: Patient seen in ED 06/29/16 for back pain - No high grade stenosis on MRI Several ED visits for back pain Past Medical History Herniated discs Seizures Cellulitis Anxiety History depression History of heart murmur as infant Hypertension, not on medications History polycystic ovarian syndrome Obesity ho reported transverse myelitis Reports: HIV Past Surgical History Tubal ligation Laminectomy L4-L5 in 2009 He sections in 2000, 2013 Hysteroscopy Meniscectomy L4-L5 Reports: , Tonsillectomy Family History Noncontributory Smoking History Former Smoker Social History Alcohol Use: Denies alcohol use Drug Use: Denies drug use Occupation lives with boyfriend Ambulatory Status Independent Review of Systems Constitutional: Denies: Chills, Fever Musculoskeletal: Reports: Extremity pain Skin: Denies Itching, Denies Rash Neurologic: Reports: Problem walking, Denies: Numbness, Weakness Complete sys rev & neg: except as marked. Respiratory: Denies: Non-productive cough, Shortness of breath Hematologic: Reports Bleeding Physical Exam Initial Vital Signs Vital Signs (First) Date Time Temp Pulse Resp B/P Pulse Ox O2 Delivery O2 Flow Rate FiO2 09/22/16 20:25 36.4 102 16 145/78 99 Room Air Initial VS: Reviewed, Vital signs abnormal Lower Extremity / Pelvis / MS: Atraumatic, Full range of motion FOOT: irregular 3cm x 4cm area of erythema to the dorsum of the right foot, proximal to the 3rd, 4th and 5th toe incision between the 4th and 5th metatarsal heads with bloody drainage extreme tendrness General/Constitutional: Awake, Alert Distress / Hydration: Positive: Distress moderate Respiratory / Chest: Atraumatic, No respiratory distress Skin: Color NL, No rash, Warm, Dry Neurologic: Oriented X3, Speech NL, No motor deficits, No sensory deficits Head / Eyes: Atraumatic, Normocephalic, PERRL, EOMI Psychiatric: Affect NL, Mood NL Interpretation & Diagnostics Lab Results Interpretation Result Diagram: 09/22/16214409/22/162144 Test 09/22/16 21:45 White Blood Count 11.8th/mm3 (3.8-10.1) Red Blood Count 4.56mil/mm3 (3.90-5.20) Hemoglobin 15.1g/dL (12.0-15.6) Hematocrit 43.4% (35.0-46.0) Mean Corpuscular Volume 95.2fL (81-100) Mean Corpuscular Hemoglobin 33.1pg (27.0-35.0) Mean Corpuscular Hemoglobin Concent 34.8% (32.0-37.0) Red Cell Distribution Width 12.0% (12.3-15.4) Platelet Count 340bil/L (150-400) Neutrophils (%) (Auto) 52.7% (40-74) Lymphocytes (%) (Auto) 35.6% (14-46) Monocytes (%) (Auto) 8.4% (4-12) Eosinophils (%) (Auto) 2.8% (0-5) Basophils (%) (Auto) 0.2% (0-3) Sodium Level 137mEq/L (134-144) Potassium Level 4.2mEq/L (3.5-5.2) Chloride Level 101mEq/L (97-108) Carbon Dioxide Level 23mmol/L (18-29) Blood Urea Nitrogen 8mg/dL (6-24) Creatinine 0.86mg/dL (0.57-1.00) Estimat Glomerular Filtration Rate 105mL/min (>59) Glucose Level 98mg/dL (60-99) Lactic Acid Level 1.4mmol/L (0.4-2.0) Calcium Level 8.8mg/dL (8.5-10.1) Magnesium Level 2.2mg/dL (1.6-2.6) Total Bilirubin 0.6mg/dL (0.0-1.2) Aspartate Amino Transf (AST/SGOT) 21U/L (0-50) Alanine Aminotransferase (ALT/SGPT) 12U/L (0-32) Alkaline Phosphatase 77U/L (25-150) Total Protein 7.3g/dL (6.4-8.4) Albumin 3.9g/dL (3.4-5.0) Lab Results Interpretation: Mildly elevated white blood count, normal lactic acid, culture pending Re-Eval/Medical Decision Med Decision/Clinical Course 41-year-old female with an infected surgical wound site. 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 There is a mild amount of cellulitis of the dorsum of foot but no lymphangitic extension. Bleeding edges were marked. She was given clindamycin 900 mg IV to be followed by 300 mg 4 times a day #40. Her ADMINISTRATIVE LIAISON shows that she has multiple small but frequent opiate pain medication prescriptions written by a variety of providers. This is definitely an acute process and is likely very painful, so she was also given a small prescription of pain medication. She was instructed to follow-up with her surgeon today for further evaluation and management. Re-Evaluation/Progress : Time of Eval: 23:18 Re-Evaluation/Progress Note: Discussed plan for follow up and discharge. The patient understands and agrees to the plan. All questions were addressed. Counseled Regarding: Diagnosis, Lab results, Need for follow-up, When/why to return to ED Discharge & Departure Impression: Primary Impression: Wound, surgical, infected Encounter type: subsequent encounter Qualified Code: T81.4XXD - Infection following a procedure, subsequent encounter Disposition: Home Discharge Condition All VS Reviewed: Yes Condition: Stable Patient Instructions: Wound Infection (ED) Additional Instructions: The wound appears infected, culture is pending. Your white blood count was mildly elevated. Clindamycin 900 mg IV was given in the emergency room to be followed by 300 mg 4 times a day for 10 days, prepack dispensed. Oxycodone/ Tylenol (5/325), 1 or 2 pills every 4-6 hours as needed for severe pain, #10 dispensed. You need to follow up with your surgeon's office in 1-2 days for further evaluation. Return to the emergency room if there is significant worsening of the redness on her foot or if you start running a fever. Referrals: OTHER,PHYSICIAN (PCP) (Family) Scribe Attestation Portions of this note were transcribed by Sugar Ortiz. I, Dr. Downs personally performed the history, physical exam and medical decision-making; I reviewed and confirmed the accuracy of the information in the transcribed note. Signed by: Bob Richards, 09/22/16 and [id number] Pedro Downs MD Sep 22, 2016 21:16 Kim Ortiz Sep 22, 2016 21:32
[2016-09-22] MEDS ORDERED: 0.9% Sodium Chloride 1,000 ML IV ONE (21:25)
[2016-09-22] MEDS ORDERED: Clindamycin Inj 900 MG in IV Premix 1 EACH IV ONE (21:25)
[2016-09-22] MEDS ORDERED: Ondansetron 2 mg/mL 2 mL Inj IVPUSH PRN (21:25)
[2016-09-22] MEDS: HYDROmorphone 0.5 mg/0.5 mL iSecure Syringe IVPUSH PRN ×2 (21:47→22:30)
[2016-09-22 21:56] LABS: BASOPHILS % (AUTO) 0.2 % (0-3); EOSINOPHILS % (AUTO) 2.8 % (0-5); MONOCYTES % (AUTO) 8.4 % (4-12); Mean Corpuscular Hemoglobin 33.1 pg (27.0-35.0); Mean Corpuscular Volume 95.2 fL (81-100); NEUTROPHILS % (AUTO) 52.7 % (40-74); Platelet Count 340 bil/L (150-400)
[2016-09-22 22:21] LABS: Magnesium 2.2 mg/dL (1.6-2.6)
[2016-09-22] MEDS ORDERED: _oxyCODONE/APAP 5-325 mg Tablet PO PRN (23:25)
[2016-09-23 00:37] VITALS: BP 156/78; PULSE 82; RESP 18; O2SAT 99
[2016-09-23] MEDS ORDERED: _Clindamycin 150 mg Capsule PO SCH (06:30)
== END 2016-09-23 00:41 | disposition home or self-care (01) ==
LOC: SED 20:12
DX: T81.4XXA Infection following a procedure, initial encounter (principal); Y83.8 Other surgical procedures as the cause of abnormal reaction of the patient, or of later complication, without mention of misadventure at the time of the procedure; Y92.9 Unspecified place or not applicable; Y93.89 Activity, other specified; Y99.8 Other external cause status; B95.7 Other staphylococcus as the cause of diseases classified elsewhere; S91.341S Puncture wound with foreign body, right foot, sequela; W45.8XXS Other foreign body or object entering through skin, sequela; Y92.009 Unspecified place in unspecified non-institutional (private) residence as the place of occurrence of the external cause; Y93.9 Activity, unspecified; Y99.9 Unspecified external cause status; F41.9 Anxiety disorder, unspecified; F32.9 Major depressive disorder, single episode, unspecified; E66.9 Obesity, unspecified; I10 Essential (primary) hypertension; Z68.41 Body mass index [BMI] 40.0-44.9, adult; Z21 Asymptomatic human immunodeficiency virus [HIV] infection status; Z87.891 Personal history of nicotine dependence; Z86.14 Personal history of Methicillin resistant Staphylococcus aureus infection; Z88.1 Allergy status to other antibiotic agents; Z88.0 Allergy status to penicillin; Z88.5 Allergy status to narcotic agent
CPT/HCPCS: 36415; 80053; 83605; 83735; 85025; 87040; 87070; 87186; 87205; 96361; 96365; 96375; 96376; 99285; J1170; J2405; J3490; J7030

== ENCOUNTER 2016-09-25 18:39 | Inpatient (IN) | payer OTHER ==
[~2016-09-25] VITALS: Ht 175.3 cm; Wt 125.0 kg
[2016-09-25 18:54] VITALS: BP 142/86; PULSE 101; RESP 18; O2SAT 98
--- NOTE | 2016-09-25 20:08 | ED.REPORT ---
HPI-Extremity Problem Lower Date of Service Sep 25, 2016 ED Provider: Frankie Hall MD Pt is a 41 y/o female presenting to the ED c/o right toot pain onset 1 week ago. The patient had a sewing needle stuck in her foot and it was partially removed on 09/07 at [facility] by a surgeon. Since the stitches were taken out 6 days later, she has been experiencing complications. She came here 1 week ago and was placed on "Keflex" for presumed infection and was told to stop taking it today because her culture grew staph that was resistant to it. Since taking Keflex, the infection has worsened. She reports associated discharge of pus, swelling, redness, "fever of 99 F". She does not know how the needle got there or how long it was in there although other physicians believe it was there likely greater than 2 years. 1. COAG NEGATIVE STAPHYLOCOCCUS M.I.C Interp --------- ------ * CEFAZOLIN R * CLINDAMYCIN >=8 R * ERYTHROMYCIN >=8 R * LINEZOLID 1 S * OXACILLIN MELISSA >=4 R * RIFAMPIN <=0.5 S * TETRACYCLINE 2 S * TRIMETHOPRIM/SULFAMETHOXAZOLE >=320 R * VANCOMYCIN 2 S Nursing Notes Stated Complaint: INFECTION & BLEEDING Chief Complaint: General Complaint Nursing Notes Reviewed: Yes Allergies: Coded Allergies: nitrofurantoin (Verified Allergy, Severe, Hives, stopped breathing, ) amoxicillin (Verified Allergy, Intermediate, Hives, 08/26/16) TOLERATED KEFLEX IN PAST morphine (Verified Allergy, Intermediate, dyspnea, hives, 08/26/16) Scheduled Dexamethasone (Dexamethasone) 4 Mg Tablet 4 MG PO BID Methocarbamol (Robaxin-750) 750 Mg Tablet 1,500 MG PO QID Scheduled PRN Clonazepam (Clonazepam) 1 Mg Tablet 1 MG PO TID PRN PRN For Anxiety Ibuprofen (Ibuprofen) 800 Mg Tablet 800 MG PO QID PRN PRN For Pain Naproxen (Naproxen) 500 Mg Tab 500 MG PO BID PRN PRN For Pain oxyCODONE-Acetaminophen 5-325 mg (oxyCODONE-Acetaminophen 5-325 mg) 1 Each Tablet 1-2 TAB PO Q6H PRN PRN For Pain General Time Seen by MD: 20:02 Chief Complaint Other (r foot pain) Hx Obtained From: Patient Arrived By: Walk-in Onset Occurred: 1 week ago Symptom Duration: Since onset Location: : Foot right Quality: Painful Severity: Current: Moderate Severity: Maximum: Severe Recent Healthcare: Recent doctor visit, Recent testing Past Medical History Past Medical History Notes: Patient seen in ED 06/29/16 for back pain - No high grade stenosis on MRI Several ED visits for back pain Past Medical History Herniated discs Seizures Cellulitis Anxiety History depression History of heart murmur as Hypertension, not on medications History polycystic ovarian syndrome Obesity ho reported transverse myelitis Reports: HIV Past Surgical History Tubal ligation Laminectomy L4-L5 in 2009 He sections in 2000, 2013 Hysteroscopy Meniscectomy L4-L5 Right foot FB removal 09/07/16 Reports: , Tonsillectomy Family History Noncontributory Smoking History Former Smoker Social History Alcohol Use: Denies alcohol use Drug Use: Denies drug use Occupation lives with boyfriend Ambulatory Status Independent Review of Systems Constitutional: Reports: Chills, Fever Musculoskeletal: Reports: Extremity pain, Extremity swelling Skin: Reports Rash, Reports Swelling Complete sys rev & neg: except as marked. Physical Exam Initial Vital Signs Vital Signs (First) Date Time Temp Pulse Resp B/P Pulse Ox O2 Delivery O2 Flow Rate FiO2 09/25/16 18:54 37.2 101 18 142/86 98 Room Air Initial VS: Reviewed, Vital signs abnormal Head / Eyes: Atraumatic, Normocephalic, PERRL ENT: Mucous membranes moist, Conjunctiva normal, No scleral icterus Neck: Supple, Full range of motion Respiratory: Breath sounds normal, Clear to auscultation, No respiratory distress Cardiovascular: Regular rate & rhythm, Heart sounds normal, Intact distal pulses Abdomen / GI: Soft, Non-tender, No distention Upper Extremities: Vascular intact, Neuro intact, No swelling, No tenderness Skin: Warm, Dry, No cyanosis Neurologic: Alert, Oriented, Nonfocal Psychiatric: Mood/affect normal, Behavior normal, Normal thought content Lower Extremity / Pelvis / MS: No deformity, Neurologic intact, Vascular intact , No ligamentous injury, Tendon function NL, No compartment syndrome Open incision about the right forefoot just distal to the region between 4th and 5th toes. Oozing bloody purulent scant fluid. Mild surrounding erythema extending 3-4 cm up midfoot. Very tender all the way up midfoot to calf. Ankle / Foot: Full range of motion, No deformity, Neurologic intact, Vascular intact, No ligamentous injury, Tendon function NL Interpretation & Diagnostics Lab Results Interpretation Result Diagram: 09/25/16201909/25/162019 Test 09/25/16 20:20 White Blood Count 11.9th/mm3 (3.8-10.1) Red Blood Count 4.25mil/mm3 (3.90-5.20) Hemoglobin 14.4g/dL (12.0-15.6) Hematocrit 40.3% (35.0-46.0) Mean Corpuscular Volume 94.8fL (81-100) Mean Corpuscular Hemoglobin 33.9pg (27.0-35.0) Mean Corpuscular Hemoglobin Concent 35.7% (32.0-37.0) Red Cell Distribution Width 12.0% (12.3-15.4) Platelet Count 340bil/L (150-400) Neutrophils (%) (Auto) 49.5% (40-74) Lymphocytes (%) (Auto) 37.7% (14-46) Monocytes (%) (Auto) 8.7% (4-12) Eosinophils (%) (Auto) 3.7% (0-5) Basophils (%) (Auto) 0.2% (0-3) Erythrocyte Sedimentation Rate 17mm/hr (0-32) Hold Purple Top Tube Received (Received) Hold Blue Top Tube Received (Received) Sodium Level 139mEq/L (134-144) Potassium Level 4.4mEq/L (3.5-5.2) Chloride Level 102mEq/L (97-108) Carbon Dioxide Level 26mmol/L (18-29) Blood Urea Nitrogen 8mg/dL (6-24) Creatinine 0.78mg/dL (0.57-1.00) Estimat Glomerular Filtration Rate 117mL/min (>59) Glucose Level 88mg/dL (60-99) Calcium Level 9.4mg/dL (8.5-10.1) Total Bilirubin 0.3mg/dL (0.0-1.2) Aspartate Amino Transf (AST/SGOT) 18U/L (0-50) Alanine Aminotransferase (ALT/SGPT) 10U/L (0-32) Alkaline Phosphatase 73U/L (25-150) C-Reactive Protein 0.7mg/dL (0.0-0.5) Total Protein 7.1g/dL (6.4-8.4) Albumin 4.1g/dL (3.4-5.0) Hold Red Top Tube Received (Received) Hold Lorenzo Top Tube Received (Received) Hold [place] Top Tube Received (Received) X-Ray Interpretation Xray Interpretation: IMPRESSION: Radiopaque foreign body between the fourth and fifth metatarsal joints and the soft tissues on the top of the foot. Dictated by: Donnie Ochoa M.D. on 09/25/2016 at 20:54 Approved by: Donnie Ochoa M.D. on 09/25/2016 at 20:55 Study Performed: 3 view X-Ray Ordered: Foot right Interpretation / Wet Read by: Interpret - Radiologist Re-Eval/Medical Decision Med Decision/Clinical Course Pt is a 41 y/o female presenting to the ED c/o right toot pain onset 1 week ago. The patient had a sewing needle stuck in her foot and it was partially removed on 09/07 at [facility] by a surgeon. Since the stitches were taken out 6 days later, she has been experiencing complications. She came here 1 week ago and was placed on "Keflex" for presumed infection and was told to stop taking it today because her culture grew staph that was resistant to it. Since taking Keflex, the infection has worsened. She reports associated discharge of pus, swelling, redness, "fever of 99 F". She does not know how the needle got there or how long it was in there although other physicians believe it was there likely greater than 2 years. 1. COAG NEGATIVE STAPHYLOCOCCUS M.I.C Interp --------- ------ * CEFAZOLIN R * CLINDAMYCIN >=8 R * ERYTHROMYCIN >=8 R * LINEZOLID 1 S * OXACILLIN MELISSA >=4 R * RIFAMPIN <=0.5 S * TETRACYCLINE 2 S * TRIMETHOPRIM/SULFAMETHOXAZOLE >=320 R * VANCOMYCIN 2 S Here in the emergency department the patient is afebrile stable vital signs examination as above. Labs notable as below: CBC: Leukocytosis of 11.1 otherwise unremarkable CMP: Unremarkable R foot x-ray: IMPRESSION: Radiopaque foreign body between the fourth and fifth metatarsal joints and the soft tissues on the top of the foot. Patient has drainage of purulent fluid from the operative site however there is no evidence of abscess or fluid collection requiring incision and drainage at this moment. X-rays demonstrate obvious osteomyelitis though advanced imaging studies may be required. Discussed management options with the patient. She is quite concerned about her infection and the degree to which the redness has worsened. Therefore, I opted to obtain 2 sets of blood cultures and initiated treatment with IV vancomycin. She was discussed with the medical hospitalist accepted for further management. She was transferred in stable condition. Re-Evaluation/Progress : Time of Eval: 21:32 Re-Evaluation/Progress Note: Pt rechecked. Discussed d/c vs admission. She would prefer to be admitted mostly for pain control. Pt understands and agrees with plan for admission. All questions addressed. Consultation : Referral / Consult Name: Aldo Felix MD Consulted With: Hospitalist Call Returned at: 21:37 Pocket Assembler: Will see patient, Agrees with eval, Agrees with plan, Accepts admit Counseled Regarding: Diagnosis, Lab results, Need for admission Discharge & Departure Impression: Primary Impression: Cellulitis of right foot Additional Impression: Foreign body in right foot Encounter type: initial encounter Qualified Code: S90.851A - Superficial foreign body, right foot, initial encounter Disposition: ADMITTED TO HOSPITAL Discharge Condition All VS Reviewed: Yes Condition: Stable Referrals: OTHER,PHYSICIAN (PCP) (Family) Scribe Attestation Portions of this note were transcribed by Kingsley Iraheta. I, Dr. Hall, personally performed the history, physical exam and medical decision-making; I reviewed and confirmed the accuracy of the information in the transcribed note. Signed by Bob Roman, 09/25/16 - [id number] Frankie Hall MD Sep 25, 2016 20:08 KINGSLEY IRAHETA Sep 25, 2016 21:09
[2016-09-25 20:37] LABS: BASOPHILS % (AUTO) 0.2 % (0-3); EOSINOPHILS % (AUTO) 3.7 % (0-5); MONOCYTES % (AUTO) 8.7 % (4-12); Mean Corpuscular Hemoglobin 33.9 pg (27.0-35.0); Mean Corpuscular Volume 94.8 fL (81-100); NEUTROPHILS % (AUTO) 49.5 % (40-74); Platelet Count 340 bil/L (150-400)
--- NOTE | 2016-09-25 20:57 | DRSVH ---
PROCEDURE: X-RAY RIGHT FOOT COMPLETE, MINIMUM THREE VIEWS ([id number]) INDICATIONS: infection TECHNIQUE: 3 views of the foot were acquired. COMPARISON: None. FINDINGS: Bones: No fractures or dislocations. No suspicious bony lesions. There is a metallic foreign body, a piece of a needle in the soft tissues on the dorsal aspect of the foot between the fourth and fift h metatarsophalangeal joints. Soft tissues: No tibiotalar joint effusion. Achilles tendon appears normal. IMPRESSION: Radiopaque foreign body between the fourth and fifth metatarsal joints and the soft tissu es on the top of the foot. Dictated by: Donnie Ochoa M.D. on 09/25/2016 at 20:54 Approved by: Donnie Ochoa M.D. on 09/25/2016 at 20:55
[2016-09-25] MEDS ORDERED: Lactated Ringer's 1,000 ML IV SCH (21:31)
[2016-09-25] MEDS ORDERED: 0.9% Sodium Chloride 1,000 ML IV ONE (21:31)
[2016-09-25] MEDS ORDERED: Vancomycin Dose per Pharmacist XX ONE (21:35)
[2016-09-25] MEDS ORDERED: Ondansetron 2 mg/mL 2 mL Inj IVPUSH PRN ×2 (21:35→21:50)
[2016-09-25] MEDS ORDERED: Vancomycin Inj 2,000 MG in 0.9% Sodium Chloride 500 ML IV ONE (21:40)
[2016-09-25] MEDS ORDERED: Polyethylene Glycol (PEG) 17 Gm Powder PO PRN (21:50)
[2016-09-25] MEDS ORDERED: Alum-Mag Hydrox-Simeth 30 mL Suspension PO PRN (21:50)
[2016-09-25] MEDS: Vancomycin Dose per Pharmacist XX SCH (21:50)
[2016-09-25] MEDS ORDERED: HYDROcodone-APAP 5-325 mg Tablet PO PRN (22:15)
[2016-09-25 22:18] VITALS: BP 122/72; PULSE 81; RESP 18; O2SAT 98
[2016-09-25] MEDS ORDERED: fentaNYL-PF 50 mCg/mL 2 mL Inj IVPUSH ONE (22:20)
[2016-09-25] MEDS: 0.9% Sodium Chloride 1,000 ML IV SCH (23:12)
--- NOTE | 2016-09-25 23:15 | PCM.HPMED ---
Subjective Date of Service Sep 25, 2016 Primary Provider: Admitting Physician: Aldo Felix MD Primary Care Physician: Other,Physician Attending Physician: Aldo Felix MD Chief Complaint: Right foot pain History of Present Illness: Patient is a 41yof with MHx significant for recurrent right leg cellulitis and recently foreign body of right foot s/p surgery presented with increasing right foot pain. Per patient, states Right foot pain started late where she came into the urgent care to discover a needle wedge between fourth and fifth toe of the right foot. Her daughter knits. Patient had foreign body removed by Dr. Sj Alfonso in [place] on . She was followed-up by surgery about week ago, and placed her on abx, thinking it might be infected. Patient reports history of multiple cellulitis on the right leg in the past. Then on patient presented to [facility] with symptoms of increasing pain, redness on the right fourth and fifth metatarsal, which evaluation showed cellulitis and she was given Keflex prior to discharge. Wound culture on that ED visit showed MRSA positive with resistant to Keflex, thus patient was called in to receive IV antibiotics. Blood culture at that was negative 2 days. Patient presents to the ED today with similar symptoms. Patient admits to increasing swellings, expressing pus with associated fevers chills and night sweats for the past week. Pain is exquisite, extending up to the knee. She takes oxycodone at home but that has not helped. Additionally, patient reports some episodes of nausea and vomiting. In the ED, vitals stable, T 36.6, HR 79, RR 20, BP 120/73, pulse ox 97%. CBC showed elevated white count 11.9, no left shift however. CMP unremarkable. Patient was started on IV vancomycin and admitted to the mostly for further observation. Review of Systems: A comprehensive review of systems was conducted with the patient and found to be negative except as above in the History of Present Illness. Seconds Allergies Coded Allergies: nitrofurantoin (Verified Allergy, Severe, Hives, stopped breathing, ) amoxicillin (Verified Allergy, Intermediate, Hives, 08/26/16) TOLERATED KEFLEX IN PAST morphine (Verified Allergy, Intermediate, dyspnea, hives, 08/26/16) Home Medications Clonazepam 2 mg daily Ibuprofen 800 mg 4 times a day when necessary Methocarbamol 750 mg 2 tablets 4 times a day. Naproxen 500 mg twice a day when necessary Oxycodone APAP 08/11/2024 one to 2 tablets every 6 hours when necessary Trazodone 50 mg at bedtime Bactrim DS for 7 days on 09/21/2016 PMH Obese, BMI of 40 Herniated disc History of recurrent cellulitis on the right leg Anxiety Depression History of polycystic ovarian syndrome X Transverse myelitis Surgical History Tubal ligation Laminectomy L4-L5 in 2009 Meniscectomy L4-L5 Right foot foreign body removal 09/07/2016 Tonsillectomy Family History Brother with diabetes and valvular heart disease. Social History Hx Alcohol Use: No Hx Substance Use: No Smoking Status: Former Smoker Exam Vital Signs Vital Sign - Last Date Time Temp Pulse Resp B/P Pulse Ox O2 Delivery O2 Flow Rate FiO2 09/25/16 22:18 36.7 81 18 122/72 98 Room Air Exam General: in pain HEENT: Normocephalic, atraumatic. PERRLA, EMOI Anicteric sclerae, moist conjunctivae Neck: No JVD, No lymphadenopathy or thyromegaly. Cardiovascular: Regular rate and rhythm with no murmurs, rubs, or gallops appreciated Pulmonary: b/l air sound, no crackles wheezes or rhonchi. No use of accessory muscles. Abdomen: Positive bowel sounds, nontender, nondistended : No Lora catheter Extremities: No clubbing, cyanosis, edema, or lymphadenopathy appreciated. Right foot and leg up to the knee exquisitely tender, erythema, swelling on the dorsum. Skin: Normal temperature, turgor, and texture; no rash, ulcers, or subcutaneous nodules appreciated. Neurological: CN II-VII intact, moving equally on all 4 extremities Psychiatric: AO 3, normal mood and affect. Lab and Diagnostics Result Diagram: 09/25/16201909/25/162019 X-Rays, CTs and MRIs PROCEDURE: X-RAY RIGHT FOOT COMPLETE, MINIMUM THREE VIEWS ([id number]) INDICATIONS: infection IMPRESSION: Radiopaque foreign body between the fourth and fifth metatarsal joints and the soft tissues on the top of the foot. Dictated by: Donnie Ochoa M.D. on 09/25/2016 at 20:54 Assessment & Plan Patient is a 41yof with MHx of recurrent right leg cellulites, presented with increasing right leg pain with positive wound culture for MRSA, admitted for administration of antibiotics. Right foot Cellulites, Present on admission, active MRSA positive 2nd to partial needle lodging between between the fourth and fifth metatarsal joints s/p surgical debridement, Dr. Sj Alfonso - Some concerns for osteomyolitis. - CT-Right foot without contrast ordered - Labs CRP and ESR ordered - Ordered Vancomycin IV managed by PharmD Depression, present on admission, chronic - Cont home Citalopram Anxiety, present on admission, chronic - Cont home clonazepam Nausea/vomiting, present on admission, active - NS 100cc/hr - Ondasetron PRN Hypertension, present on admission, active - likely 2nd to pain - Monitor BP. History of HIV? HIV noted on ED record. - patient denies any hx of HIV - HIV test ordered DVT prophylaxis: heparin subQ Antipyretic: Acetaminophen PRN Antinausea: Ondansetron PRN Bowel regiment PRN Patient Status: Patient is admitted under observation status with expected length of stay LESS than 2 midnights due to severity of presenting symptoms, risk of adverse event, and complexity of treatment plan. VTE Prophylaxis: Sub-Q Enoxaparin Resuscitation Status: CPR: Attempt Resuscitation Attending Statement The patient was seen and examined together with Dr. King on 09/25 and I agree with the history, exam and plan as outlined in the note above. Dave King DO Sep 25, 2016 23:15 Aldo Felix MD Sep 26, 2016 02:39
[2016-09-25] MEDS: oxyCODONE-Acetamin 5-325 mg Tablet PO PRN (23:33)
[2016-09-25 23:56] VITALS: BP 120/73; PULSE 79; RESP 20; O2SAT 97
--- NOTE | 2016-09-26 01:33 | PCM.CONPHA ---
Subjective Date of Service: Sep 25, 2016 Requesting Provider: Dave King DO Right foot pain Reason for Pharmacy Consult: Vancomycin Dosing Objective Vital Signs Date Time Temp Pulse Resp B/P Pulse Ox O2 Delivery O2 Flow Rate FiO2 09/25/16 23:56 36.6 79 20 120/73 97 Room Air 09/25/16 22:18 36.7 81 18 122/72 98 Room Air 09/25/16 18:54 37.2 101 18 142/86 98 Room Air Intake and Output 09/24/16 09/25/16 09/26/16 00:00 00:00 00:00 Intake Total 1000 ml Balance 1000 ml Weight (Kilograms): 125.000 Height (Feet): 5 Height (Inches): 9.00 Test 09/25/16 20:20 09/25/16 23:15 White Blood Count 11.9th/mm3 (3.8-10.1) Red Blood Count 4.25mil/mm3 (3.90-5.20) Hemoglobin 14.4g/dL (12.0-15.6) Hematocrit 40.3% (35.0-46.0) Mean Corpuscular Volume 94.8fL (81-100) Mean Corpuscular Hemoglobin 33.9pg (27.0-35.0) Mean Corpuscular Hemoglobin Concent 35.7% (32.0-37.0) Red Cell Distribution Width 12.0% (12.3-15.4) Platelet Count 340bil/L (150-400) Neutrophils (%) (Auto) 49.5% (40-74) Lymphocytes (%) (Auto) 37.7% (14-46) Monocytes (%) (Auto) 8.7% (4-12) Eosinophils (%) (Auto) 3.7% (0-5) Basophils (%) (Auto) 0.2% (0-3) Erythrocyte Sedimentation Rate 17mm/hr (0-32) Hold Purple Top Tube Received (Received) Hold Blue Top Tube Received (Received) Sodium Level 139mEq/L (134-144) Potassium Level 4.4mEq/L (3.5-5.2) Chloride Level 102mEq/L (97-108) Carbon Dioxide Level 26mmol/L (18-29) Blood Urea Nitrogen 8mg/dL (6-24) Creatinine 0.78mg/dL (0.57-1.00) Estimat Glomerular Filtration Rate 117mL/min (>59) Glucose Level 88mg/dL (60-99) Calcium Level 9.4mg/dL (8.5-10.1) Total Bilirubin 0.3mg/dL (0.0-1.2) Aspartate Amino Transf (AST/SGOT) 18U/L (0-50) Alanine Aminotransferase (ALT/SGPT) 10U/L (0-32) Alkaline Phosphatase 73U/L (25-150) C-Reactive Protein 0.7mg/dL (0.0-0.5) Total Protein 7.1g/dL (6.4-8.4) Albumin 4.1g/dL (3.4-5.0) Hold Red Top Tube Received (Received) Hold Jamieson Top Tube Received (Received) Hold [place] Top Tube Received (Received) Assessment/Plan Assessment/Plan A: * Vancomycin dosing by pharmacy for 41 y/o woman with foot cellulitis with concerns for osteomyelitis * She received a 2000 mg IV vancomycin loading dose in the ED * Estimated CrCl for this patient is > 120 mL/min (Cockcroft & Gault using AdjBW ) * Estimated vancomycin half-life is 7 hours and estimated Vd is 69 liters (0.55 L/kg for BMI of 40.7) P: * Starting vancomycin 1250 mg IV every 8 hours * Target a vancomycin trough range of 15 - 20 mcg/mL for now * Draw a trough level prior to the fourth dose Thank you. Pharmacy will continue to follow this patient. Iris aVsquez Sep 26, 2016 01:33
[2016-09-26] MEDS: HYDROmorphone 1 mg/mL Inj IVPUSH PRN ×6 (01:46→21:04)
[2016-09-26 02:50] LABS: BASOPHILS % (AUTO) 0.2 % (0-3); MONOCYTES % (AUTO) 6.9 % (4-12); Mean Corpuscular Hemoglobin 33.4 pg (27.0-35.0); Mean Corpuscular Volume 95.2 fL (81-100); NEUTROPHILS % (AUTO) 42.3 % (40-74); Platelet Count 328 bil/L (150-400)
--- NOTE | 2016-09-26 04:08 | NUR ---
Admit note: Pt. arrived to the unit approx. 2300 via gurney accompanied by ED staff, A&Ox4, able to verbalize needs with clear speech, pleasant and calm, able to transfer herself to bed with 1 Person limited assist, oriented to and call light, given loading dose of Vancomycin per order, c/o 8/10 right foot px, given prn percocet and one time dose of IV fentanyl with no effect, MD notified and given new order of PRN IV dilaudid, Administered with pt. state of relief, vitals stable, afebrile, call light in reach, hourly check and will continue to monitor.
[2016-09-26 05:42] VITALS: BP 104/68; PULSE 68; RESP 16; O2SAT 98
[2016-09-26] MEDS ORDERED: TRAZ-115 PO (07:29)
[2016-09-26] MEDS ORDERED: CITA40TA13 PO (07:29)
[2016-09-26] MEDS ORDERED: GABA-502 PO (07:29)
[2016-09-26 08:30] VITALS: BP 102/68; PULSE 72; RESP 16; O2SAT 96
[2016-09-26] MEDS: 0.9% Sodium Chloride 1,000 ML IV SCH ×2 (08:35→21:03)
[2016-09-26] MEDS: oxyCODONE-Acetamin 5-325 mg Tablet PO PRN ×3 (08:44→21:04)
[2016-09-26] MEDS: Vancomycin Inj 1,250 MG in 0.9% Sodium Chloride 250 ML IV SCH ×2 (08:45→17:05)
[2016-09-26] MEDS: Vancomycin Dose per Pharmacist XX SCH (10:16)
--- NOTE | 2016-09-26 11:36 | DRSVH ---
PROCEDURE: CT FOOT RIGHT WITHOUT CONTRAST ([id number]) INDICATIONS: osteomyolitis? TECHNIQUE: Noncontrast 1-1.5 mm axial sections acquired from above the tibiotalar joint to the bottom of the donya caneus, with coronal and sagittal reformats. COMPARISON: [facility], CR, XR FOOT 3VW RT, 09/25/2016, 20:32. FINDINGS: Image quality: Excellent. Bones:No fracture or focal osseous destruction. Soft tissues: Previously described 2 mm metallic foreign body again seen in the soft tissues between the fifth and fourth metatarsal heads in keeping with needle fragment. IMPRESSION: No suspicious focal osseous destruction to suggest (advanced) osteomyelitis however early infection c annot be excluded based on CT findings. If there is persistent clinical concern, further evaluation w ith short interval serial foot radiographs, triple phase bone scan, or MRI could be performed. Dictated by: Severino Pascual M.D. on 09/26/2016 at 11:30 Approved by: Severino Pascual M.D. on 09/26/2016 at 11:34
[2016-09-26 12:34] VITALS: BP 111/65; PULSE 83; RESP 16; O2SAT 97
--- NOTE | 2016-09-26 13:16 | PCM.PNMED ---
Subjective Date of Service Sep 26, 2016 Subjective Patient continues to endorse significant amount of pain in right foot though it has improved somewhat since admission. Also notes that she feels the swelling and redness has improved overnight. She had been having some chills prior to presentation to hospital but these have now resolved. Appetite slowly improving but still not very good though she denies any nausea. Also denies any chest pain shortness of breath or palpitations. Exam Vital Signs Vital Sign - Last Date Time Temp Pulse Resp B/P Pulse Ox O2 Delivery O2 Flow Rate FiO2 09/26/16 12:34 36.7 83 16 111/65 97 Room Air Intake and Output 09/25/16 09/25/16 09/26/16 Cumulative From/Thru 15:00 23:00 07:00 09/25/16 18:54 - 09/26/16 06:14 Intake Total 1000 ml 2120 ml 3120 ml Output Total 1000 ml 1000 ml Balance 1000 ml 1120 ml 2120 ml Intake Oral 620 ml 620 ml IV Total 1000 ml 1500 ml 2500 ml Output Urine Total 1000 ml 1000 ml General: Alert, Oriented X3, Cooperative, Moderate Distress Eyes: PERRLA Mouth: Mucous Membr Moist/[place] Chest & Lungs: Clear to auscultation & percussion Cardiovascular: Regular Rate/Rhythm, No Murmurs/Rubs/Gallops Abdomen: Other (patient is obese and abdomen is nontender nondistended) Extremities: Other (there is moderate swelling on the dorsum of the right foot , extending slightly into ankle and lower calf. There is no appreciable erythema or warmth compared with left foot. There is significant discomfort noted with the light palpation. ) Neurological: Grossly Neurologically Intact IVs and Medications Medications Reviewed: Medications were reviewed in detail Lab and Diagnostics Result Diagram: 09/26/1622109/26/16221 X-Rays, CTs and MRIs PROCEDURE: X-RAY RIGHT FOOT COMPLETE, MINIMUM THREE VIEWS ([id number]) INDICATIONS: infection IMPRESSION: Radiopaque foreign body between the fourth and fifth metatarsal joints and the soft tissues on the top of the foot. Dictated by: Donnie Ochoa M.D. on 09/25/2016 at 20:54 Assessment & Plan Patient is a 41yof with MHx of recurrent right leg cellulites, presented with increasing right leg pain with positive wound culture for MRSA, admitted for administration of antibiotics. Right foot Cellulites, Present on admission, active MRSA positive 2nd to partial needle lodging between between the fourth and fifth metatarsal joints s/p surgical debridement, Dr. Sj Alfonso - Some concerns for osteomyolitis, CT cannot completely rule out however does not appear to be advanced bone infection is present at all - Intensity Vancomycin IV managed by PharmD - Blood cultures pending in addition to MRSA screen, may consider antibiotic adjustments pending results. - Adequate pain control currently achieved with current when necessary medications. Depression, present on admission, chronic - Cont home Citalopram Anxiety, present on admission, chronic - Cont home clonazepam Nausea/vomiting, present on admission, active - NS 100cc/hr started on admission, now tapered to 75cc/hr given good oral intake and control of nausea. - Ondasetron PRN Hypertension, present on admission, active - likely 2nd to pain - Monitor BP. HIV noted on ED record. - patient denies any hx of HIV - HIV test ordered and pending. Given recurrent infection and concern for resistant bacteria, patient must remain on continued IV therapy at this time pending cultures. Hospitalization will therefore require greater than 2 midnight for adequate medical stabilization Pain Evaluation: Adequate Pain Control VTE Prophylaxis: Sub-Q Enoxaparin Resuscitation Status: CPR: Attempt Resuscitation Time spent 25 minutes Lopez Hernandez DO Sep 26, 2016 13:16
--- NOTE | 2016-09-26 13:59 | NUR ---
NURSING DAYS 7-7 09/26 P-Patient has left foot cellulitis, states "it looks a lot better than yesterday", rates pain 7/10 at times, VSS and WNL. WBC 12.5, MSRA nasal (-), CT of foot today appeared to be negative for osteomyelitis. Blood cultures pending, also pending HIV test. I- Pain control Percocet q6 and Dilaudid IVP Q4 1mg. Patient appears comfortable at this time. IV antibiotics given and NS 75. E- Continue to monitor infection and control pain.
[2016-09-26 17:13] VITALS: BP 115/79; PULSE 74; RESP 16; O2SAT 97
[2016-09-26 22:00] VITALS: BP 108/65; PULSE 69; RESP 17; O2SAT 100
[2016-09-26] MEDS ORDERED: Vancomycin Serum Trough XX ONE (23:30)
[2016-09-27] MEDS: Vancomycin Inj 1,250 MG in 0.9% Sodium Chloride 250 ML IV SCH (00:20)
[2016-09-27] MEDS: HYDROmorphone 1 mg/mL Inj IVPUSH PRN ×7 (01:03→21:02)
--- NOTE | 2016-09-27 01:46 | PCM.PHAPRO ---
Progress Date of Service: Sep 27, 2016 Vancomycin dosing by pharmacy for 41 y/o woman with right foot cellulitis A: * The patient has been receiving vancomycin 1250 mg IV every 8 hours * Vancomycin trough prior to the fourth dose was 18.2 mcg/mL, which is in range * The vancomycin is likely not at steady-state yet, and trough levels will continue to increase as it accumulates * The foot has improved per 09/26 progress note * SCr appears stable so far * MRSA screen is negative, blood cultures are pending, there is history of positive wound culture for MRSA * Foot CT cannot rule out osteomyelitis, but did not show advanced disease P: * Lower vancomycin dose to 1000 mg IV every 8 hours * Continue targeting a trough range of 15 - 20 mcg/mL for now, consider lowering target with further improvement * Draw another trough level after 4 more doses Thank you. Pharmacy will continue to follow this patient. Iris Vasquez Sep 27, 2016 01:46
[2016-09-27] MEDS: oxyCODONE-Acetamin 5-325 mg Tablet PO PRN ×4 (04:11→23:04)
[2016-09-27 04:15] VITALS: BP 113/71; PULSE 69; RESP 17; O2SAT 100
--- NOTE | 2016-09-27 05:59 | NUR ---
Shift Note Assumed pt care at 1900, pt continues with IVF and intermittent IV ABO, R foot pain managed with PRN Percocet and Dilaudid with good pain relief per pt report,R foot with non pitting edema, elevated, call light in reach at all times.
[2016-09-27 07:40] VITALS: BP 103/71; PULSE 77; RESP 18; O2SAT 98
[2016-09-27] MEDS: Vancomycin Dose per Pharmacist XX SCH (08:30)
[2016-09-27] MEDS ORDERED: Vancomycin Inj 1,000 MG in IV Premix 1 EACH IV SCH (08:30)
--- NOTE | 2016-09-27 08:52 | NUR ---
Social Work: Screen D: Per EMR review, pt is a 41 year old female admitted for R Foot Cellulitis. Pt is [employer]. PCP is listed as Other Physician. NOK is not listed. Advanced directives not completed- information provided to patient. Readmit score is high, 4/8. Pt lives in [place] and is I at baseline. Per EMR review, pt will require several more days of hospitalization for IV ABX. ID has been consulted. A: Pt who is I at baseline. P: Anticipate pt to return home via POV once medically stable; HEALTHCARE BUSINESS ANALYST to continue to follow and assess for discharge needs. МАРИНА Shabazz
[2016-09-27] MEDS: 0.9% Sodium Chloride 1,000 ML IV SCH ×2 (10:06→23:38)
--- NOTE | 2016-09-27 10:10 | NUR ---
Pain 0740 up am rounds pt reports pain 9/10, shaking/tremor present, rx given. 1005 reports pain 8/10, pt with tremors, rx given. Pt reports has been using crutches for mobility at home recently. Able to bear weight on the heel "in just the right position."
--- NOTE | 2016-09-27 11:12 | PCM.PNMED ---
Subjective Date of Service Sep 27, 2016 Subjective Still in significant pain due to foot. No real changes in severity from yesterday, controlled with current pain medications to a degree but can not tolerate direct pressure, certainly unable to bare weight due to severe pain. She denies fever/chills. NO nausea/vomiting reported. NO other acute complaints at this time. Exam Vital Signs Vital Sign - Last Date Time Temp Pulse Resp B/P Pulse Ox O2 Delivery O2 Flow Rate FiO2 09/27/16 07:40 36.6 77 18 103/71 98 Room Air Intake and Output 09/26/16 09/26/16 09/27/16 Cumulative From/Thru 15:00 23:00 07:00 09/25/16 18:54 - 09/27/16 05:23 Intake Total 2289 ml 1500 ml 6909 ml Output Total 800 ml 950 ml 2750 ml Balance 1489 ml 550 ml 4159 ml Intake Oral 1130 ml 350 ml 2100 ml IV Total 1159 ml 1150 ml 4809 ml Output Urine Total 800 ml 950 ml 2750 ml Exam General: Alert, Oriented X3, Cooperative, In Some Distress Abdomen: Patient is obese and abdomen is non-tender nondistended) Extremities: Swelling on the dorsum of the right foot, extending slightly into ankle and lower calf. There is no appreciable erythema or warmth compared with left foot. There is significant discomfort noted with even light palpation. Neurological: Grossly Neurologically Intact IVs and Medications Medications Reviewed: Medications were reviewed in detail Lab and Diagnostics Result Diagram: 09/26/16 0222 09/27/16 0310 X-Rays, CTs and MRIs PROCEDURE: X-RAY RIGHT FOOT COMPLETE, MINIMUM THREE VIEWS ([id number]) INDICATIONS: infection IMPRESSION: Radiopaque foreign body between the fourth and fifth metatarsal joints and the soft tissues on the top of the foot. Dictated by: Donnie Ochoa M.D. on 09/25/2016 at 20:54 Assessment & Plan Patient is a 41yof with MHx of recurrent right leg cellulites, presented with increasing right leg pain with positive wound culture for MRSA, admitted for administration of antibiotics. Right foot Cellulites, Present on admission, active - [place] of recent MRSA positive infection reported from previous hospitalization 2ndry to partial needle lodging between between the fourth and fifth metatarsal joints s/p surgical debridement, Dr. Sj Alfonso on 09/07/16 - Some concerns for osteomyolitis, CT cannot completely rule out however does not appear to be advanced bone infection is present at least - MRSA swab was negative, but blood cultures still pending, negative affter 24 hours at this time. - Will continue Vancomycin IV managed by PharmD, consider narrowing coverage with negative blood culture results. - Adequate pain control currently achieved with current when necessary medications. Foreign body in foot, retained - Given recurrent infection and severe pain, it appear repeat sigrical intrvention will be needed to remove needle compltely - Case discussed with podiatry, Dr Oliver, who will be consulting. - Depression, present on admission, chronic - Cont home Citalopram Anxiety, present on admission, chronic - Cont home clonazepam Nausea/vomiting, present on admission, active - NS 100cc/hr started on admission, now tapered to 75cc/hr given good oral intake and control of nausea. - Ondasetron PRN Hypertension, present on admission, active - likely 2nd to pain - Monitor BP. HIV noted on ED record. - patient denies any hx of HIV - HIV test ordered and pending. Given recurrent infection and concern for resistant bacteria, patient must remain on continued IV therapy at this time pending cultures. Hospitalization will therefore require greater than 2 midnight for adequate medical stabilization Pain Evaluation: Adequate Pain Control VTE Prophylaxis: Sub-Q Enoxaparin Resuscitation Status: CPR: Attempt Resuscitation Time spent 25 minutes Lopez Hernandez DO Sep 27, 2016 11:12
--- NOTE | 2016-09-27 16:01 | NUR ---
pain Request made to MD to increase the amount and frequency of percocet as current pain plan not effective. This is per patient request.
[2016-09-27 16:30] VITALS: BP 129/84; PULSE 69; RESP 20; O2SAT 98
--- NOTE | 2016-09-27 18:29 | NUR ---
Pain/mobility Pt having 7-9/10 pain relieved for short while with percocet/dilaudid. Reports "only takes the edge off". Pt able to ambulate with crutches to BR. Only able to bear weight on heel of right foot d/t pain.
[2016-09-27 20:24] VITALS: BP 135/93; PULSE 75; RESP 18; O2SAT 98
--- NOTE | 2016-09-27 20:43 | PCM.CHPPOD ---
Subjective Date of service Sep 27, 2016 History of Present Illness 41 year old female with complaint of severe pain of the right lateral foot evaluated at bedside in [facility]. Patient states that she recently had a foreign body removed from her right foot and has been dealing with a chronic infection. patient States that she was on antibiotics for more than 2 months. she states that she was recently referred to [facility] by her previous orthopaedic surgeon who told her he "could no longer do anything for her." patient complains of intractable pain to the right foot, she states that her previous foreign body was a needle and she was unsure of how it got stuck into her foot. Allergy Allergies: Coded Allergies: nitrofurantoin (Verified Allergy, Severe, Hives, stopped breathing, ) amoxicillin (Verified Allergy, Intermediate, Hives, 08/26/16) TOLERATED KEFLEX IN PAST morphine (Verified Allergy, Intermediate, dyspnea, hives, 08/26/16) Medications Citalopram (Citalopram) 40 Mg Tablet 40 MG PO DAILY Clonazepam (Clonazepam) 1 Mg Tablet 2 MG PO BID Gabapentin (Gabapentin) 300 Mg Capsule 300 MG PO TID Ibuprofen (Ibuprofen) 800 Mg Tablet 800 MG PO QID PRN PRN For Pain Trazodone (Trazodone) 50 Mg Tablet 100 MG PO HS oxyCODONE-Acetaminophen 5-325 mg (oxyCODONE-Acetaminophen 5-325 mg) 1 Each Tablet 1-2 TAB PO Q6H PRN PRN For Pain Past Medical History Surgeries: Yes (laminectomy 2010) Medical History: Surgical History: Social History Hx Alcohol Use: No Hx Substance Use: No Smoking Status: Former Smoker Podiatry Consult Exam Vital Signs Vital Sign - Last Date Time Temp Pulse Resp B/P Pulse Ox O2 Delivery O2 Flow Rate FiO2 09/27/16 20:24 36.8 75 18 135/93 98 Room Air Intake and Output 09/26/16 09/26/16 09/27/16 Cumulative From/Thru 15:00 23:00 07:00 09/25/16 18:54 - 09/27/16 05:23 Intake Total 2289 ml 1500 ml 6909 ml Output Total 800 ml 950 ml 2750 ml Balance 1489 ml 550 ml 4159 ml Intake Oral 1130 ml 350 ml 2100 ml IV Total 1159 ml 1150 ml 4809 ml Output Urine Total 800 ml 950 ml 2750 ml Result Diagram: 09/26/16 0222 09/27/16 0310 Lab Test 09/25/16 20:20 09/25/16 23:15 09/26/16 02:22 09/26/16 23:30 Erythrocyte Sedimentation Rate 17mm/hr (0-32) Hold Purple Top Tube Received (Received) Hold Blue Top Tube Received (Received) Total Bilirubin 0.3mg/dL (0.0-1.2) Aspartate Amino Transf (AST/SGOT) 18U/L (0-50) Alanine Aminotransferase (ALT/SGPT) 10U/L (0-32) Alkaline Phosphatase 73U/L (25-150) C-Reactive Protein 0.7mg/dL (0.0-0.5) Total Protein 7.1g/dL (6.4-8.4) Albumin 4.1g/dL (3.4-5.0) Hold Red Top Tube Received (Received) Hold Beaver Top Tube Received (Received) Hold Vail Top Tube Received (Received) HIV (1&2) Ag and Ab, 4th Generation Non reactive (Non Reactive) White Blood Count 12.5th/mm3 (3.8-10.1) Red Blood Count 4.19mil/mm3 (3.90-5.20) Hemoglobin 14.0g/dL (12.0-15.6) Hematocrit 39.9% (35.0-46.0) Mean Corpuscular Volume 95.2fL (81-100) Mean Corpuscular Hemoglobin 33.4pg (27.0-35.0) Mean Corpuscular Hemoglobin Concent 35.1% (32.0-37.0) Red Cell Distribution Width 12.1% (12.3-15.4) Platelet Count 328bil/L (150-400) Neutrophils (%) (Auto) 42.3% (40-74) Lymphocytes (%) (Auto) 46.3% (14-46) Monocytes (%) (Auto) 6.9% (4-12) Eosinophils (%) (Auto) 4.0% (0-5) Basophils (%) (Auto) 0.2% (0-3) Vancomycin Level Trough 18.2mcg/mL Test 09/27/16 03:10 Sodium Level 140mEq/L (134-144) Potassium Level 4.5mEq/L (3.5-5.2) Chloride Level 105mEq/L (97-108) Carbon Dioxide Level 24mmol/L (18-29) Blood Urea Nitrogen 8mg/dL (6-24) Creatinine 0.83mg/dL (0.57-1.00) Estimat Glomerular Filtration Rate 109mL/min (>59) Glucose Level 97mg/dL (60-99) Calcium Level 8.5mg/dL (8.5-10.1) Exam General: Alert, Oriented X3, Cooperative, No Acute Distress Lower Extremities: Right: Extremity warm Lower Extremity Pulses: Palpable: Right Dorsalis Pedis Right Posterior Tibal Podiatry WOUND : Wound Location/Description severe pain to palpation of the right lateral foot. no open ulceration is present. there is a linear scar overlying the 4th intermetatarsal space which appears well healed. no fluctuance is noted. no signs of acute infection sensation grossly intact Assessment & Plan Assessment foreign body of the right foot without clinical signs of abscess Problems: Plan Detailed evaluation of the right foot today does not demonstrate clinical signs of infection, her previous incision site is well healed without surrounding erythema or clinical signs of abscess formation Review of the CT scan reveals a continued small foreign body at the base of the 5th digit. This patient is experiencing severe pain to her right lateral foot which appears out of proportion when compared to the clinical exam. This patient does have a mildly elevated white blood cell count so underlying abscess cannot be exclusively ruled out. At this point it may be helpful to order an MRI with contrast to evaluate underlying soft tissue and rule out abscess, the underlying metallic foreign body is unlikely to cause any significant distortion other then in its immediate area. I have discussed with the patient that if her pain continues we may decide to preform a bedside incision and drainage under local anaesthesia differential diagnosis should include complex regional pain syndrome. VTE Prophylaxis: Sub-Q Enoxaparin Manoj Oliver DPM Sep 27, 2016 20:43
--- NOTE | 2016-09-27 22:55 | CONS ---
[address] [address] CONSULTATION REPORT PATIENT: BAR MCGHEE : 1975 MR#: [id number] ADMIT: 09/25/2016 JOB ID: [id number] DATE OF SERVICE: 09/27/[address] Hernandez for this timely consult. REASON FOR CONSULTATION: Possible deep right space infection. HISTORY OF PRESENT ILLNESS: The patient is a 41-year-old woman who reportedly has little in the way of past medical history, though she is somewhat obese and has a herniated disk. She has a history of recurrent right foot and ankle cellulitis and at one point in July had an abscess of the right dorsal foot. Some of her medical care has been at [facility] and with other providers in the [place] area. This history begins back in July when she had incision and drainage of an abscess of her right dorsal foot. At that time, the patient apparently was told that she had a needle in her right foot between the 4th and 5th toes. Subsequently, the patient recovered from that abscess which she said she was told was not staph. It was drained in the emergency department at [facility] and we are trying to get those July cultures. In any event, in late August, on September 05, she was making dinner in her kitchen and felt something snap in her foot. She came to the emergency department at [facility] and was x-rayed and it was found that she had a needle between the 4th and 5th toes, though she tells us she was actually aware that the needle was there previously. In any event, she developed some symptoms following that September 05 snap in the foot in that she developed subjective fevers, subjective chills, nausea, vomiting, malaise and increasing pain. This led her to a paper roll machine operator, Dr. Boothe, in [place] who made a small incision on the dorsum of the foot between the 4th and 5th toes and extracted some but not all of a needle. Following the surgery, apparently, the patient returned to his office where a couple of sutures were taken out of the dorsal foot and afterwards was told there was a small retained fragment but that she should be okay. She continued though to have a great deal of pain in her right foot which started around the forefoot and gradually spread to involve the ankle and all the way up to the knee. She was eventually only able to walk on her heel on the right side because of the extraordinary pain in her whole right leg below the knee. This was associated with continued nausea, vomiting on one occasion, subjective fevers, subjective chills and generalized malaise. Eventually, the patient came to our emergency room on September 22, and a culture was done of the small wound that was still present. That culture eventually yielded coag-negative staph. Note that the patient was initially started on Bactrim on or about September 22 and sent home, but when the culture grew Staph there was concerns and she was called to return to the hospital and was subsequently readmitted yesterday. After we just got ahold of the [place] [facility] lab there was no growth from cultures done in late July of blood as well as the dorsal foot abscess. PAST MEDICAL HISTORY: 1. Herniated disk with chronic back pain. 2. Obesity. 3. Recurrent cellulitis and abscess, right lower extremity. 4. Anxiety and depression. 5. History of polycystic ovarian syndrome. 6. History of transverse myelitis. 7. Right forefoot needle removal September 07, 2016. SOCIAL HISTORY: The patient is a nonsmoker, nondrinker. FAMILY HISTORY: No family history of tuberculosis. REVIEW OF SYSTEMS: The patient has no significant headache at this time. No ocular complaints. No sore throat. No cough. She states she does have some exertional dyspnea which she reports started about two weeks ago. She has nausea but vomited only once. No diarrhea and no dysuria. No problems with the left leg, and the remainder of the review of systems is negative. PHYSICAL EXAMINATION: Reveals an afebrile woman. Temp 36.6, pulse 77, respiratory rate 18, blood pressure 103/71. She is saturating well on room air. She does not appear to be in any distress. Her BMI is 41 and she does appear moderately obese. Examination of the head: Mental status is clear. Examination of the head: No trauma. Eyes without conjunctivitis. Oral cavity without thrush or hairy leukoplakia. The neck is without adenopathy. The lungs are clear. Cardiac tones: Regular rate and rhythm without murmur. Abdomen: Obese, soft, nontender, without masses. She does not have a Lora catheter. She does not have any inguinal or femoral adenopathy on either side. She has good pulses in her lower extremities bilaterally. The right foot has a bit of a discolored or dusky look to it as compared to the left. It is difficult to examine her right foot because of the extreme pain even with light touch below about the level of the mid tibia. The area where the incision was performed between the 4th and 5th toes on the dorsum of the foot is almost healed and does not appear infected. One does not see evidence of cellulitis nor any purulence. The patient can move her foot though she reports it is actually painful to do so, and her foot to touch feels cooler than the one on the contralateral left foot. The patient is neurologically intact except for this extreme allodynia on the right. LABS: Include a white count which is about 12,000. Note that in looking back in the chart from prior visits to usually about that level, she has only 42% polys. Her total poly count is not elevated. Her total lymphocytes are slightly increased as of 46% lymphocytes. Sed rate is a normal 17. CRP a near normal 0.7, creatinine 0.83 which is normal. LFTs entirely normal. HIV was done on admission. It is negative. MRSA screen of the nose negative and blood cultures are negative. In looking at the culture that was done on the in the ED, this was a swab from the wound. It grew coag-negative staph which was Vanco susceptible though only with an MELISSA of 2 so no all that susceptible. The coag-negative staph was also susceptible to tetracycline and rifampin. It was quite resistant to Bactrim which she has been receiving as an outpatient, so was a fairly plummer coag-negative staph. IMAGING: Includes a CT of the foot done yesterday which shows no evidence of osteo, but there is a 2 mm metallic object between the 4th and 5th metatarsal heads. A plain x-ray of the foot done on admission just shows the same radiopaque abnormality. Micro is negative except for the coag-negative Staph and, as mentioned, we did call [place] and a culture there was negative. IMPRESSION: This foot does not appear very infected. The patient has no fever and normal neutrophil count even though her total white blood count is up a little bit, a completely normal sed rate, and a near normal CRP. A CT scan of the foot shows really nothing except a small fragment of a needle. Examination of the foot, ankle and lower leg though shows that it is a bit cool and has very significant allodynia. My concern here is that this patient may not have an infection, or if she does, it is only minimal, but that she is developing what used to be called reflex sympathetic dystrophy or what is now called complex regional pain syndrome. This can occur even after fairly minor trauma to an extremity and can become a very debilitating chronic painful process. RECOMMENDATIONS: 1. I would discontinue her current intravenous antibiotics and switch to doxycycline by an oral route. 2. I would consider consulting Neurology for what I suspect is a complex regional pain syndrome involving her right foot and ankle. 3. Note that sometimes in these cases, Anesthesia or Pain Clinic needs to be involved for nerve blocks under sophisticated modalities of care as left unchecked this can become quite a severe process. 4. Will continue to follow this interesting patient with you. Note that I understand Podiatry is going to be involved to retrieve the remaining needle fragment and hopefully at that time they will get some cultures.
[2016-09-28] MEDS: HYDROmorphone 1 mg/mL Inj IVPUSH PRN ×4 (00:24→11:26)
[2016-09-28] MEDS: diphenhydrAMINE 25 mg Capsule PO PRN ×2 (01:27→20:27)
[2016-09-28 05:48] VITALS: BP 133/84; PULSE 85; RESP 19; O2SAT 97
--- NOTE | 2016-09-28 06:06 | NUR ---
Pain Pt reports new pain medication gives her more pain relief. Still 6-9/10 on pain scale.
[2016-09-28 07:40] VITALS: BP 100/69; PULSE 61; RESP 20; O2SAT 98
[2016-09-28] MEDS: oxyCODONE-Acetamin 5-325 mg Tablet PO PRN ×4 (07:50→22:22)
[2016-09-28] MEDS ORDERED: Vancomycin Serum Trough XX ONE (08:00)
--- NOTE | 2016-09-28 13:41 | PCM.PNMED ---
Subjective Date of Service Sep 28, 2016 Subjective Patient continues to be in severe discomfort related to foot, though etiology remains undefined. She was seen by both infectious disease and podiatry specialists, who agree that there is no evidence of infection with a consistent with this degree of pain. She notes no fever chills or sweats. Appetite is adequate. Pain is in moderate control with current as needed medications and she is reluctant to continue taking large amounts of opiate-based pain medications which make her very sleepy. She has developed more of a headache today, unsure of hers from doxycycline started yesterday or Dilaudid which was increased in response to her severe pain. Exam Vital Signs Vital Sign - Last Date Time Temp Pulse Resp B/P Pulse Ox O2 Delivery O2 Flow Rate FiO2 09/28/16 07:40 36.8 61 20 100/69 98 Room Air Intake and Output 09/27/16 09/27/16 09/28/16 Cumulative From/Thru 15:00 23:00 07:00 09/25/16 18:54 - 09/28/16 05:54 Intake Total 2275 ml 1706 ml 59775 ml Output Total 1350 ml 800 ml 4900 ml Balance 925 ml 906 ml 5990 ml Intake Oral 1200 ml 900 ml 4200 ml IV Total 1075 ml 806 ml 6690 ml Output Urine Total 1350 ml 800 ml 4900 ml # Voids 1 1 # Bowel Movements 0 0 Exam General: Alert, Oriented X3, Cooperative, In Some Distress Abdomen: Patient is obese and abdomen is non-tender nondistended) Extremities: Swelling on the dorsum of the right foot, extending slightly into ankle and lower calf. There is no appreciable erythema or warmth compared with left foot. There is significant discomfort noted with even light palpation. Foot is now wrapped the knee is bandaged with toes uncovered demonstrating good perfusion no erythema. Neurological: Grossly Neurologically Intact IVs and Medications Medications Reviewed: Medications were reviewed in detail Lab and Diagnostics Result Diagram: 09/26/162 09/27/16 0310 X-Rays, CTs and MRIs PROCEDURE: X-RAY RIGHT FOOT COMPLETE, MINIMUM THREE VIEWS ([id number]) INDICATIONS: infection IMPRESSION: Radiopaque foreign body between the fourth and fifth metatarsal joints and the soft tissues on the top of the foot. Dictated by: Donnie Ochoa M.D. on 09/25/2016 at 20:54 Assessment & Plan Patient is a 41yof with MHx of recurrent right leg cellulites, presented with increasing right leg pain with positive wound culture for MRSA, admitted for administration of antibiotics. Right foot Cellulites, Present on admission, active Severe right foot pain - Emilee of recent MRSA positive infection reported from previous hospitalization 2ndry to partial needle lodging between between the fourth and fifth metatarsal joints s/p surgical debridement, Dr. Sj Alfonso on 09/07/16 - Some concerns for osteomyolitis, CT cannot completely rule out however does not appear to be advanced bone infection is present at least - MRSA swab was negative, blood cultures continue to demonstrate no growth after nearly 48 hours. -Vancomycin IV was discontinued by infectious disease given low risk for MRSA infection based on current results on the opinion of infectious disease specialist , now narrowed coverage to doxycycline oral. -Adjusting pain medications throughout higher dose of oxycodone which may provide more lasting relief and decrease frequency of Dilaudid use. - Both infectious and podiatric specialists do not feel the degree of infection is consistent with amount of pain patient is experiencing he can find alternative cause. There has been some discussion of possibly complex regional pain syndrome having developed following previous infection which may account for patient's current symptoms. - We will obtain an MRI study on the suggestion of podiatry to this further for the possibility of abscess, and determine if there is any other possible underlying pathology which can explain patient's refractory pain. Foreign body in foot, retained - Dr. Oliver, was consulted and feels small needle tip is very unlikely to created infection or be related to the degree of pain patient is in - He feels surgical excision at this time but much more likely represent more risk causing damage of foot tissue that it would benefit as he feels it is highly unlikely to be related to any of patient's symptoms, and the surgery itself will undoubtedly create more pain. - We will continue to observe as noted above MRI studies pending. Vaginal discharge/vaginal candidiasis - Likely results of patient receiving broad-spectrum box - We will provide one dose of Diflucan this time in addition to starting probiotic for further prophylaxis. Depression, present on admission, chronic - Cont home Citalopram Anxiety, present on admission, chronic - Cont home clonazepam Nausea/vomiting, present on admission, active - NS 100cc/hr started on admission, tapered to 75cc/hr given good oral intake and control of nausea, now discontinued. . - Ondasetron PRN Hypertension, present on admission, active - likely 2nd to pain - Monitor BP. HIV noted on ED record. - patient denies any hx of HIV - HIV test ordered and pending. Disposition: Pending results of MRI study and ideally improved pain control patient may be stable for discharge as soon as tomorrow given transition oral antibiotics. Pain Evaluation: Adequate Pain Control VTE Prophylaxis: Sub-Q Enoxaparin Resuscitation Status: CPR: Attempt Resuscitation Time spent 30 minutes Lopez Hernandez DO Sep 28, 2016 13:41
[2016-09-28] MEDS ORDERED: HYDROmorphone 1 mg/mL Inj IVPUSH PRN (14:30)
--- NOTE | 2016-09-28 14:30 | NUR ---
MRI Pt taken down in w/ch to MRI.
--- NOTE | 2016-09-28 15:49 | NUR ---
Mobility/pain/nausea Pt able to bear weight onto right heel and amb with crutches Pain 7-12/19. Pain medication adjusted. Pt c/o headache with increased dilaudid use, pt prefers to use more of PO to control pain. c/o heartburn during breakfast - maalox given, c/o nausea with lunch - rx given with effective relief. 1530 returned from MRI
--- NOTE | 2016-09-28 16:42 | DRSVH ---
PROCEDURE: MRI FOREFOOT RIGHT WITH AND WITHOUT CONTRAST ([id number]) INDICATIONS: eval for possible abscess / foriegn body present. TECHNIQUE: Noncontrast sagittal T1 spin echo and T2 fast spin echo with fat saturation, long-axis T1 spin echo a nd T2 fast spin echo with fat saturation; short-axis T1 spin echo, proton density fast spin echo, and T2 fast spin echo with fat saturation through the forefoot. Post-contrast short axis, long axis, an d sagittal T1 spin echo with fat saturation through the forefoot. COMPARISON: [facility], CT, CT FOOT RT WO CON, 09/26/2016, 10:17. [facility] , CR, XR FOOT 3VW RT, 09/25/2016, 20:32. FINDINGS: Image quality: Degraded by uncontrollable severe motion artifact. There is also a field distortion ar tifact from metallic foreign body Exam is essentially nondiagnostic due to severe motion artifact and field distortion from demonstrate d metallic foreign body seen on prior radiograph dated 09/25/16, which obscures the area of concern in the lateral forefoot. Abscess cannot be excluded. Marrow signal is grossly unremarkable although not well seen on several pulse sequences. IMPRESSION: Nondiagnostic exam due to uncontrollable motion artifact in addition to field distortion artifact from metallic foreign body. Consider focused ultrasound to evaluate for discrete fluid colle ction/abscess. Dictated by: Severino Pascual M.D. on 09/28/2016 at 16:09 Approved by: Severino Pascual M.D. on 09/28/2016 at 16:40
[2016-09-28 16:44] VITALS: BP 127/79; PULSE 81; RESP 20; O2SAT 94
--- NOTE | 2016-09-28 18:14 | NUR ---
Headache Pt reports severe headache increasing in pain since breakfast. Thinks possibly related to doxycycline that was given this am. Reports just don't feel well enough to eat.
[2016-09-28 20:34] VITALS: BP 145/92; PULSE 72; RESP 19; O2SAT 98
[2016-09-29] MEDS: oxyCODONE-Acetamin 5-325 mg Tablet PO PRN ×3 (03:08→12:46)
[2016-09-29] MEDS: diphenhydrAMINE 25 mg Capsule PO PRN (03:08)
[2016-09-29 03:11] VITALS: BP 126/81; PULSE 65; RESP 17; O2SAT 97
--- NOTE | 2016-09-29 06:12 | NUR ---
Pain/Ambulation Pt stated pain control has been better than the previous night. Pt stated she was able to ambulate better during shift.
[2016-09-29 08:10] VITALS: BP 113/80; PULSE 64; O2SAT 96
--- NOTE | 2016-09-29 09:58 | PCM.PNPOD ---
Subjective Date of Service: Sep 28, 2016 Date of Service: Sep 28, 2016 Visit Information: Reason for Visit R Foot Cellulitis /Fb Surgery/Surgery Date Post-Op Day # Date of Admission: Sep 25, 2016 at 21:58 Hospital Day # Subjective: 5-year-old female with intractable pain of the right lateral foot and local foreign body of the base of the fifth toe is evaluated at bedside in no acute distress. Patient states that her pain has improved over the past day and she is no longer taking the Dilaudid. An MRI was attempted today however the local distortion reaction due to the foreign body was greater than anticipated and the MRI is of little use Postop General: No Complaints Gastrointestinal: Good Appetite Pain Management: PO Objective Vital Sign - Last Date Time Temp Pulse Resp B/P Pulse Ox O2 Delivery O2 Flow Rate FiO2 09/29/16 08:10 36.7 64 113/80 96 Room Air 09/29/16 03:11 17 Intake and Output 09/28/16 09/28/16 09/29/16 Cumulative From/Thru 15:00 23:00 07:00 09/25/16 18:54 - 09/29/16 06:10 Intake Total 1541 ml 820 ml 68874 ml Output Total 1800 ml 6700 ml Balance -259 ml 820 ml 6551 ml Intake Oral 1000 ml 800 ml 6000 ml IV Total 541 ml 20 ml 7251 ml Output Urine Total 1800 ml 6700 ml # Voids 1 3 5 # Bowel Movements 0 0 Result Diagram: 09/26/16 0222 09/27/16 0310 Lab Test 09/25/16 20:20 09/25/16 23:15 09/26/16 02:22 09/26/16 23:30 Erythrocyte Sedimentation Rate 17mm/hr (0-32) Hold Purple Top Tube Received (Received) Hold Blue Top Tube Received (Received) Total Bilirubin 0.3mg/dL (0.0-1.2) Aspartate Amino Transf (AST/SGOT) 18U/L (0-50) Alanine Aminotransferase (ALT/SGPT) 10U/L (0-32) Alkaline Phosphatase 73U/L (25-150) C-Reactive Protein 0.7mg/dL (0.0-0.5) Total Protein 7.1g/dL (6.4-8.4) Albumin 4.1g/dL (3.4-5.0) Hold Red Top Tube Received (Received) Hold [place] Top Tube Received (Received) Hold [place] Top Tube Received (Received) HIV (1&2) Ag and Ab, 4th Generation Non reactive (Non Reactive) White Blood Count 12.5th/mm3 (3.8-10.1) Red Blood Count 4.19mil/mm3 (3.90-5.20) Hemoglobin 14.0g/dL (12.0-15.6) Hematocrit 39.9% (35.0-46.0) Mean Corpuscular Volume 95.2fL (81-100) Mean Corpuscular Hemoglobin 33.4pg (27.0-35.0) Mean Corpuscular Hemoglobin Concent 35.1% (32.0-37.0) Red Cell Distribution Width 12.1% (12.3-15.4) Platelet Count 328bil/L (150-400) Neutrophils (%) (Auto) 42.3% (40-74) Lymphocytes (%) (Auto) 46.3% (14-46) Monocytes (%) (Auto) 6.9% (4-12) Eosinophils (%) (Auto) 4.0% (0-5) Basophils (%) (Auto) 0.2% (0-3) Vancomycin Level Trough 18.2mcg/mL Test 09/27/16 03:10 Sodium Level 140mEq/L (134-144) Potassium Level 4.5mEq/L (3.5-5.2) Chloride Level 105mEq/L (97-108) Carbon Dioxide Level 24mmol/L (18-29) Blood Urea Nitrogen 8mg/dL (6-24) Creatinine 0.83mg/dL (0.57-1.00) Estimat Glomerular Filtration Rate 109mL/min (>59) Glucose Level 97mg/dL (60-99) Calcium Level 8.5mg/dL (8.5-10.1) Exam General: Alert, Oriented X3, Cooperative, No Acute Distress Lower Extremities: Right: Extremity warm Lower Extremity Pulses: Palpable: Right Dorsalis Pedis Right Posterior Tibal Podiatry WOUND : Wound Location/Description Right fourth intermetatarsal space incision wound full-thickness to subcutaneous tissue without exposed bone or tendon there is no surrounding erythema. Underlying tissue appears healthy in nature. Compression of the right lateral foot produces a minimal amount of serous drainage with no purulent discharge noted. There is moderate pain to palpation of this area which is significantly decreased from evaluation yesterday this wound measured approximately 1 cm x 0.2 cm x 0.2 cm Assessment & Plan Impression Stable foreign body and intractable pain of the right lateral foot Problems: Plan Patient appears to be doing better today and she is no longer severely sensitive to light touch. This decreases the likelihood of a diagnosis of complex regional pain syndrome which I do not believe to be likely at this point. Compression was applied to the right lateral foot and no purulent drainage or abscess was noted only a minimal amount of serous discharge was able to be expelled from the wound. I have discussed all potential options with the patient today I am willing, provided we continue to see a significant decrease in her overall discomfort, to remove the remainder of the foreign body from her right fifth toe later this week likely evening if she would prefer. I have discussed with her that if there is no abscess or significant local tissue necrosis present removing this foreign body may be of no significant benefit. She states that she is going to think about it overnight. I have also discussed that she is at this time stable to be transitioned to outpatient care and removal of this foreign body may be performed in an outpatient setting more appropriately. The wound was dressed with moist to dry sterile 4 x 4 gauze Kerlix and an Stone bandage. This dressing will be changed every 24-48 hours. She is welcome to follow up with me within 5 days of discharge if she is discharged prior to . Podiatry will continue to follow. VTE Prophylaxis: Sub-Q Enoxaparin Manoj Oliver DPM Sep 29, 2016 09:58
--- NOTE | 2016-09-29 12:20 | PCM.DIMED ---
Discharge Instructions Date of Service Sep 29, 2016 Dates of Hospitalization Sep 25, 2016 at 21:58 Discharge Diagnosis Discharge Diagnosis Retained foreign body right foot, cellulitis/infection Diet Discharge Diet: No restrictions Activity Discharge Activity: No restrictions Call your provider Call your provider for: Fever or Chills, Excessive diarrhea, Other (worsening swelling/pain of foot.) Patient Instructions Patient Instructions Dr Oliver to have needle removed in office Follow-up Provider: Manoj Oliver DPM Follow-up with PCP in: Other (as agreed upon the time of discharge) Seferino Solo MD Sep 29, 2016 12:20
[2016-09-29] MEDS ORDERED: Acetaminophen PO (12:21)
[2016-09-29] MEDS ORDERED: DOXY100T2 PO (12:21)
--- NOTE | 2016-09-29 12:47 | PCM.PNPOD ---
Subjective Date of Service: Sep 29, 2016 Visit Information: Reason for Visit R Foot Cellulitis /Fb Date of Admission: Sep 25, 2016 at 21:58 Subjective: Patient sitting up in bed, more comfortable today, stating she would like to go home and set up an outpatient appointment with Dr. Oliver next week for further discussion on possible Foreign body removal later. Objective Vital Sign - Last Date Time Temp Pulse Resp B/P Pulse Ox O2 Delivery O2 Flow Rate FiO2 09/29/16 08:10 36.7 64 113/80 96 Room Air 09/29/16 03:11 17 Intake and Output 09/28/16 09/28/16 09/29/16 Cumulative From/Thru 15:00 23:00 07:00 09/25/16 18:54 - 09/29/16 06:10 Intake Total 1541 ml 820 ml 54402 ml Output Total 1800 ml 6700 ml Balance -259 ml 820 ml 6551 ml Intake Oral 1000 ml 800 ml 6000 ml IV Total 541 ml 20 ml 7251 ml Output Urine Total 1800 ml 6700 ml # Voids 1 3 5 # Bowel Movements 0 0 Result Diagram: 09/26/16 0222 09/27/16 0310 Lab Test 09/25/16 20:20 09/25/16 23:15 09/26/16 02:22 09/26/16 23:30 Erythrocyte Sedimentation Rate 17mm/hr (0-32) Hold Purple Top Tube Received (Received) Hold Blue Top Tube Received (Received) Total Bilirubin 0.3mg/dL (0.0-1.2) Aspartate Amino Transf (AST/SGOT) 18U/L (0-50) Alanine Aminotransferase (ALT/SGPT) 10U/L (0-32) Alkaline Phosphatase 73U/L (25-150) C-Reactive Protein 0.7mg/dL (0.0-0.5) Total Protein 7.1g/dL (6.4-8.4) Albumin 4.1g/dL (3.4-5.0) Hold Red Top Tube Received (Received) Hold [place] Top Tube Received (Received) Hold [place] Top Tube Received (Received) HIV (1&2) Ag and Ab, 4th Generation Non reactive (Non Reactive) White Blood Count 12.5th/mm3 (3.8-10.1) Red Blood Count 4.19mil/mm3 (3.90-5.20) Hemoglobin 14.0g/dL (12.0-15.6) Hematocrit 39.9% (35.0-46.0) Mean Corpuscular Volume 95.2fL (81-100) Mean Corpuscular Hemoglobin 33.4pg (27.0-35.0) Mean Corpuscular Hemoglobin Concent 35.1% (32.0-37.0) Red Cell Distribution Width 12.1% (12.3-15.4) Platelet Count 328bil/L (150-400) Neutrophils (%) (Auto) 42.3% (40-74) Lymphocytes (%) (Auto) 46.3% (14-46) Monocytes (%) (Auto) 6.9% (4-12) Eosinophils (%) (Auto) 4.0% (0-5) Basophils (%) (Auto) 0.2% (0-3) Vancomycin Level Trough 18.2mcg/mL Test 09/27/16 03:10 Sodium Level 140mEq/L (134-144) Potassium Level 4.5mEq/L (3.5-5.2) Chloride Level 105mEq/L (97-108) Carbon Dioxide Level 24mmol/L (18-29) Blood Urea Nitrogen 8mg/dL (6-24) Creatinine 0.83mg/dL (0.57-1.00) Estimat Glomerular Filtration Rate 109mL/min (>59) Glucose Level 97mg/dL (60-99) Calcium Level 8.5mg/dL (8.5-10.1) Exam General: Alert, Oriented X3, Cooperative, No Acute Distress Lower Extremities: Right: Extremity warm Lower Extremity Pulses: Palpable: Right Dorsalis Pedis Right Posterior Tibal Podiatry WOUND : Wound Location/Description resolved erythema, minimal edema in right foot. Slit-like scab on the dorsum of 5th toe base. No induration. Mild tenderness to palpation. No hypersensitivity. Assessment & Plan Problems: (1) Foreign body in right foot Qualifiers: Encounter type: subsequent encounter Qualified Code: S90.851D - Superficial foreign body, right foot, subsequent encounter Plan: Patient to call our office and set up an appointment with Dr. Oliver in the next 7-10 days. [phone]. In the meantime, at home, continue with lukewarm epsom salt soaks daily, replace gauze and Acewrap dressing for compression. If no drainage, use Acewrap only, but continue compression until she sees Dr. Oliver. Ok to discharge from our standpoint. Onset Date: ~ 09/2016 Status: Acute ICD Code: S90.851A VTE Prophylaxis: Sub-Q Enoxaparin Mikayla Maxwell DPM Sep 29, 2016 12:47
--- NOTE | 2016-09-29 12:47 | NUR ---
Social Work: Readiness for Discharge/Discharge D: Per EMR review, pt is a 41 year old female admitted for R Foot Cellulitis. Pt is medically stable for discharge, discharge orders are active. Pt to receive PO abx at discharge. SW met with pt at bedside regarding discharge plan, pt is agreeable to discharge. Pt is independent at baseline and has been ambulating in the room with her crutches. Pt confirms that she has crutches at home to use. Pt confirms that her fiancee will transport home via POV. Pt denied any questions or concerns related to her discharge. No discharge needs identified at this time. A: Pt who is I at baseline. P: Pt to ambulate at home with crutches and finish her course of PO abx. Pt confirms that her fiancee will transport home via POV. Pt denied any questions or concerns related to her discharge. No discharge needs identified at this time. Shayla Peters MSW
--- NOTE | 2016-09-29 12:53 | NUR ---
Pain Pt reports has only 4 tabs of percocet at home, request made to the MD for DC script. MD notified of podiatry clearing pt for DC.
--- NOTE | 2016-09-29 14:24 | PROG NOTE ---
[address] [address] PROGRESS NOTE PATIENT: BAR MCGHEE : 1975 MR#: [id number] ADMIT: 09/25/2016 JOB ID: [id number] DATE: 09/29/2016 INFECTIOUS DISEASE FOLLOW UP NOTE: REASON FOR FOLLOWUP: Right foot pain with retained foreign body. INTERVAL HISTORY: The patient reports that over the past two days since I last saw her she has had considerable decrease in the pain in her right foot. She reports that the allodynia or hypersensitivity which involved basically all of her right leg below the knee has essentially completely resolved and her only residual pain is in the right forefoot at the area where she has a retained needle fragment. She denies any fevers, chills, cough, nausea, vomiting or diarrhea. PHYSICAL EXAMINATION: Reveals a woman who is in no distress. She is awake, alert, smiling and wants to go home. She is afebrile. Temperature 36.7, pulse 64, respiratory rate 17, blood pressure 113/80. No skin rashes noted. Her right foot has an extensive dressing I did not remove, but the right lower extremity between the knee and the ankle where the dressings starts is now completely normal and there is no evidence for a reduced temperature, increased sweating or any unusual hypersensitivity. LABORATORIES: Include white count 12.5, basically normal differential, creatinine 0.83. CRP is 0.7. HIV negative. Blood cultures are negative. There was nothing to culture from the wound. A MRSA screen was negative as well. An MRI of the foot was done yesterday, was nondiagnostic by motion artifact and artifact produced by the foreign body. IMPRESSION: The rapid decrease in the hypersensitivity and mottling of the right lower extremity leads me to believe she does not have complex regional pain syndrome. At this point, I am not terribly impressed that there is much going on here with respect to infection and I think the idea of discontinuing her to finish up a short course of doxycycline would be quite reasonable. RECOMMENDATIONS: 1. Discharge the patient today with about five more days of oral doxycycline to finish a 10 day course of therapy. 2. No additional ID follow up indicated at this time. ID will go ahead and sign off.
--- NOTE | 2016-09-29 14:40 | NUR ---
Discharge Reviewed DC instructions with patient, stated understanding. Pain rx script sent in packet, other rx e-faxed. All belongings taken. Pt reports med BM earlier today. Taken down in w/ch to ER entrance to wait for who is on the way. Very insistent to wait there. Gave floor number if has concerns or needs anything
--- NOTE | 2016-09-29 16:37 | PCM.DC.MED ---
Discharge Summary Date of Service Sep 29, 2016 Dates of Hospitalization Date of Hospital Admission Sep 25, 2016 at 21:58 Date of Discharge: Sep 29, 2016 Providers: Admitting Physician: Aldo Felix MD Primary Care Physician: Other,Physician Attending Physician: Aldo Felix MD Diagnosis at Time of Discharge Diagnosis at Time of Discharge Retained foreign body right foot, cellulitis/infection Consultations Podiatry, [facility], [facility] Procedures XRay, CTs & MRIs PROCEDURE: X-RAY RIGHT FOOT COMPLETE, MINIMUM THREE VIEWS ([id number]) INDICATIONS: infection IMPRESSION: Radiopaque foreign body between the fourth and fifth metatarsal joints and the soft tissues on the top of the foot. Dictated by: Donnie Ochoa M.D. on 09/25/2016 at 20:54 Brief History Patient is a 41yof with MHx significant for recurrent right leg cellulitis and recently foreign body of right foot s/p surgery presented with increasing right foot pain. Per patient, states Right foot pain started late where she came into the urgent care to discover a needle wedge between fourth and fifth toe of the right foot. Her daughter knits. Patient had foreign body removed by Dr. Sj Alfonso in [place] on . She was followed-up by surgery about week ago, and placed her on abx, thinking it might be infected. Patient reports history of multiple cellulitis on the right leg in the past. Then on patient presented to [facility] with symptoms of increasing pain, redness on the right fourth and fifth metatarsal, which evaluation showed cellulitis and she was given Keflex prior to discharge. Wound culture on that ED visit showed MRSA positive with resistant to Keflex, thus patient was called in to receive IV antibiotics. Blood culture at that was negative 2 days. Patient presents to the ED today with similar symptoms. Patient admits to increasing swellings, expressing pus with associated fevers chills and night sweats for the past week. Pain is exquisite, extending up to the knee. She takes oxycodone at home but that has not helped. Additionally, patient reports some episodes of nausea and vomiting. In the ED, vitals stable, T 36.6, HR 79, RR 20, BP 120/73, pulse ox 97%. CBC showed elevated white count 11.9, no left shift however. CMP unremarkable. Patient was started on IV vancomycin and admitted to the mostly for further observation. Hospital Course Patient is a 41yof with MHx of recurrent right leg cellulites, presented with increasing right leg pain with positive wound culture for MRSA, admitted for administration of antibiotics. I am meeting this patient on the day of discharge. She has been doing well on oral antibiotics. Her pain control is good with just Percocet. MRSA is negative and she is anxious to discharge. The plan is that #Right foot Cellulites/t pain-pain adequately controlled with Percocet at this time. - Emilee of recent MRSA positive infection reported from previous hospitalization 2ndry to partial needle lodging between between the fourth and fifth metatarsal joints s/p surgical debridement, Dr. Sj Alfonso on 09/07/16 - MRSA swab was negative, blood cultures continue to demonstrate no growth after nearly 48 hours. -Vancomycin IV was discontinued by infectious disease given low risk for MRSA infection based on current results on the opinion of infectious disease specialist , now narrowed coverage to doxycycline oral. . - MRI poor quality due to motion and metallic artifact #Foreign body in foot, retained - Dr. Oliver, was consulted and feels small needle tip is very unlikely to created infection or be related to the degree of pain patient is in - surgical excision planned as outpatient Vaginal discharge/vaginal candidiasis - Likely results of patient receiving broad-spectrum box - We will provide one dose of Diflucan this time in addition to starting probiotic for further prophylaxis. Depression, present on admission, chronic - Cont home Citalopram Anxiety, present on admission, chronic - Cont home clonazepam Nausea/vomiting, present on admission, resolved-- Ondasetron PRN HIV noted on ED record. -HIV serology - Exam Vital Signs (Last) Date Time Temp Pulse Resp B/P Pulse Ox O2 Delivery O2 Flow Rate FiO2 09/29/16 08:10 36.7 64 113/80 96 Room Air 09/29/16 03:11 17 Test 09/25/16 20:20 09/25/16 23:15 09/26/16 02:22 09/26/16 23:30 Erythrocyte Sedimentation Rate 17mm/hr (0-32) Hold Purple Top Tube Received (Received) Hold Blue Top Tube Received (Received) Total Bilirubin 0.3mg/dL (0.0-1.2) Aspartate Amino Transf (AST/SGOT) 18U/L (0-50) Alanine Aminotransferase (ALT/SGPT) 10U/L (0-32) Alkaline Phosphatase 73U/L (25-150) C-Reactive Protein 0.7mg/dL (0.0-0.5) Total Protein 7.1g/dL (6.4-8.4) Albumin 4.1g/dL (3.4-5.0) Hold Red Top Tube Received (Received) Hold [place] Top Tube Received (Received) Hold [place] Top Tube Received (Received) HIV (1&2) Ag and Ab, 4th Generation Non reactive (Non Reactive) White Blood Count 12.5th/mm3 (3.8-10.1) Red Blood Count 4.19mil/mm3 (3.90-5.20) Hemoglobin 14.0g/dL (12.0-15.6) Hematocrit 39.9% (35.0-46.0) Mean Corpuscular Volume 95.2fL (81-100) Mean Corpuscular Hemoglobin 33.4pg (27.0-35.0) Mean Corpuscular Hemoglobin Concent 35.1% (32.0-37.0) Red Cell Distribution Width 12.1% (12.3-15.4) Platelet Count 328bil/L (150-400) Neutrophils (%) (Auto) 42.3% (40-74) Lymphocytes (%) (Auto) 46.3% (14-46) Monocytes (%) (Auto) 6.9% (4-12) Eosinophils (%) (Auto) 4.0% (0-5) Basophils (%) (Auto) 0.2% (0-3) Vancomycin Level Trough 18.2mcg/mL Test 09/27/16 03:10 Sodium Level 140mEq/L (134-144) Potassium Level 4.5mEq/L (3.5-5.2) Chloride Level 105mEq/L (97-108) Carbon Dioxide Level 24mmol/L (18-29) Blood Urea Nitrogen 8mg/dL (6-24) Creatinine 0.83mg/dL (0.57-1.00) Estimat Glomerular Filtration Rate 109mL/min (>59) Glucose Level 97mg/dL (60-99) Calcium Level 8.5mg/dL (8.5-10.1) Discharge Medications Discharge Medications Citalopram (Citalopram) 40 Mg Tablet 40 MG PO DAILY (Reported) Clonazepam (Clonazepam) 1 Mg Tablet 2 MG PO BID (Reported) Doxycycline Hyclate (Doxycycline Hyclate) 100 Mg Tablet 100 MG PO BID Prescribed by: LEROY SOLO MD Gabapentin (Gabapentin) 300 Mg Capsule 300 MG PO TID (Reported) Trazodone (Trazodone) 50 Mg Tablet 100 MG PO HS (Reported) As needed ([Acetaminophen]) 325 MG TABLET 975 MG PO Q6H PRN PRN For Pain Prescribed by: LEROY SOLO MD Ibuprofen (Ibuprofen) 800 Mg Tablet 800 MG PO QID PRN PRN For Pain (Reported) oxyCODONE-Acetaminophen 5-325 mg (oxyCODONE-Acetaminophen 5-325 mg) 1 Each Tablet 1-2 TAB PO Q6H PRN PRN For Pain Prescribed by: KAREN MCCLURE MD Followup Plan Disposition: To home Follow-up plan PCP, if patient does not already have when she should get one+ podiatry Discharge Diet: No restrictions Discharge Activity: No restrictions Patient Instructions Dr Oliver to have needle removed in office Follow-up Provider: Manoj Oliver DPM Follow-up with PCP in: Other (as agreed upon the time of discharge) Time spent > 30 minutes Leroy Solo MD Sep 29, 2016 16:37
== END 2016-09-29 14:35 | disposition home or self-care (01) | DRG 603 ==
LOC: SED 18:39 → UNDOADMIN 20:21 → OSC 20:21 → MOC 21:58
PROVIDERS: ADMIT Hospitalist; ATTEND Hospitalist
DX: L03.115 Cellulitis of right lower limb (principal); I10 Essential (primary) hypertension; F41.8 Other specified anxiety disorders; Z87.891 Personal history of nicotine dependence; R11.2 Nausea with vomiting, unspecified; B37.3 Candidiasis of vulva and vagina; S90.851D Superficial foreign body, right foot, subsequent encounter

== ENCOUNTER 2016-10-18 16:16 | Emergency (ER) | payer OTHER ==
[~2016-10-18] VITALS: Ht 175.3 cm; Wt 125.9 kg
[~2016-10-18 16:16] MED LIST changes: +Acetaminophen PO; +CITA40TA13 PO; +DOXY100T2 PO; -DXM4T PO; +GABA-502 PO; -METH-313 PO; -NPR500T PO; +TRAZ-115 PO
[2016-10-18 16:22] VITALS: BP 120/87; PULSE 96; RESP 18; O2SAT 98
--- NOTE | 2016-10-18 17:20 | ED.REPORT ---
HPI-Extremity Problem Lower Date of Service Oct 18, 2016 ED Provider: Mike Aparicio MD Pt is a 41 y/o female w/ a hx of recurrent MRSA right foot cellulitis presenting to the ED c/o right foot pain onset today. Please see the complete history from Dr. Moore's note pasted below. The patient has a sewing needle chronically lodged in her right foot which has caused recurrent cellulitis. There is a plan to remove it by nuclear scientist Dr. Oliver in 2 months. She states she cannot wait that long due to pain. She c/o associated subjective fever, increased swelling of the right foot. She last saw Dr. Oliver 1 hour ago and she states he didn't do anything to help her and told her he would see her in 2 months for surgery. This history begins back in July when she had incision and drainage of an abscess of her right dorsal foot. At that time, the patient apparently was told that she had a needle in her right foot between the 4th and 5th toes. Subsequently, the patient recovered from that abscess which she said she was told was not staph. It was drained in the emergency department at [facility] and we are trying to get those July cultures. In any event, in late August, on September 05, she was making dinner in her kitchen and felt something snap in her foot. She came to the emergency department at [facility] and was x-rayed and it was found that she had a needle between the 4th and 5th toes, though she tells us she was actually aware that the needle was there previously. In any event, she developed some symptoms following that September 05 snap in the foot in that she developed subjective fevers, subjective chills, nausea, vomiting, malaise and increasing pain. This led her to a nuclear scientist, Dr. Boothe, in [place] who made a small incision on the dorsum of the foot between the 4th and 5th toes and extracted some but not all of a needle. Following the surgery, apparently, the patient returned to his office where a couple of sutures were taken out of the dorsal foot and afterwards was told there was a small retained fragment but that she should be okay. She continued though to have a great deal of pain in her right foot which started around the forefoot and gradually spread to involve the ankle and all the way up to the knee. She was eventually only able to walk on her heel on the right side because of the extraordinary pain in her whole right leg below the knee. This was associated with continued nausea, vomiting on one occasion, subjective fevers, subjective chills and generalized malaise. Eventually, the patient came to our emergency room on September 22, and a culture was done of the small wound that was still present. That culture eventually yielded coag-negative staph. Note that the patient was initially started on Bactrim on or about September 22 and sent home, but when the culture grew Staph there was concerns and she was called to return to the hospital and was subsequently readmitted yesterday. After we just got ahold of the [place] [facility] there was no growth from cultures done in late July of blood as well as the dorsal foot abscess. Nursing Notes Stated Complaint: SEWING NEEDLE IN FOOT Chief Complaint: Extremity Trauma Nursing Notes Reviewed: Yes ([employer], meds not reconciled) Allergies: Coded Allergies: nitrofurantoin (Verified Allergy, Severe, Hives, stopped breathing, ) amoxicillin (Verified Allergy, Intermediate, Hives, 08/26/16) TOLERATED KEFLEX IN PAST morphine (Verified Allergy, Intermediate, dyspnea, hives, 08/26/16) Scheduled Citalopram (Citalopram) 40 Mg Tablet 40 MG PO DAILY Clonazepam (Clonazepam) 1 Mg Tablet 2 MG PO BID Doxycycline Hyclate (Doxycycline Hyclate) 100 Mg Tablet 100 MG PO BID Gabapentin (Gabapentin) 300 Mg Capsule 300 MG PO TID Trazodone (Trazodone) 50 Mg Tablet 100 MG PO HS Scheduled PRN ([Acetaminophen]) 325 MG TABLET 975 MG PO Q6H PRN PRN For Pain Ibuprofen (Ibuprofen) 800 Mg Tablet 800 MG PO QID PRN PRN For Pain oxyCODONE-Acetaminophen 5-325 mg (oxyCODONE-Acetaminophen 5-325 mg) 1 Each Tablet 1-2 TAB PO Q6H PRN PRN For Pain oxyCODONE-Acetaminophen 5-325 mg (oxyCODONE-Acetaminophen 5-325 mg) 1 Each Tablet 1-2 TAB PO Q6H PRN PRN For Pain General Time Seen by MD: 17:15 Chief Complaint Other (right foot pain) Hx Obtained From: Patient Arrived By: Walk-in Onset Occurred: 5 - 8 hours ago Symptom Duration: Since onset Location: : Foot right Quality: Painful Severity: Current: Moderate Severity: Maximum: Severe Exacerbated by: Range of motion, Abducting, Bending, Eversion, Extension, Flexion, Grasping, Inversion, Movement, Pronation, Supination, Twisting Recent Healthcare: Recent doctor visit, Recent testing, Previous diagnosis, Prior workup Similar Sx Previous: Yes Past Medical History Past Medical History Notes: Patient seen in ED 06/29/16 for back pain - No high grade stenosis on MRI Several ED visits for back pain Admitted: 09/25- for pain or foreign body right foot with cellulitis, podiatry doctor all him, discharge with plan for outpatient excision Past Medical History Herniated discs Seizures Cellulitis Anxiety History depression History of heart murmur as Hypertension, not on medications History polycystic ovarian syndrome Obesity ho reported transverse myelitis h/o MRSA R Foot 09/2016 HIV+ per EMR notes, however see ID consultation 09/2016: HIV negative Past Surgical History Tubal ligation Laminectomy L4-L5 in 2009 He sections in 2000, 2013 Hysteroscopy Meniscectomy L4-L5 Right foot FB removal 09/07/16 Reports: , Tonsillectomy Family History Noncontributory Smoking History Former Smoker Social History Alcohol Use: Denies alcohol use Drug Use: Denies drug use Occupation lives with boyfriend Ambulatory Status Independent Review of Systems Constitutional: Reports: Fever, Denies: Chills Musculoskeletal: Reports: Extremity pain, Extremity swelling Complete sys rev & neg: except as marked. Physical Exam Initial Vital Signs Vital Signs (First) Date Time Temp Pulse Resp B/P Pulse Ox O2 Delivery O2 Flow Rate FiO2 10/18/16 16:22 37.0 96 18 120/87 98 Room Air Initial VS: Reviewed, Vital signs normal Head / Eyes: Atraumatic, Normocephalic, PERRL ENT: Mucous membranes moist, Conjunctiva normal, No scleral icterus Neck: Supple, Full range of motion Respiratory: Breath sounds normal, Clear to auscultation, No respiratory distress Cardiovascular: Regular rate & rhythm, Heart sounds normal, Intact distal pulses Abdomen / GI: No distention Skin: Warm, Dry, No cyanosis Neurologic: Alert, Oriented, Nonfocal Psychiatric: Mood/affect normal, Behavior normal, Normal thought content Lower Extremity / Pelvis / MS: No deformity, Neurologic intact, Vascular intact Ankle / Foot: No deformity, Neurologic intact, Vascular intact Right foot: Chronic wound with no clinical signs of infection No erythema No swelling when compared to left foot She claims it is painful even to slight touch General/Constitutional: Awake, Alert, No acute distress, Cooperative, Not toxic appearing Behavior: Positive: Anxious Re-Eval/Medical Decision Med Decision/Clinical Course This is a 41-year-old female who presents complaining of increasing pain swelling and wanting to have a foreign body in her right foot removed. She has had a foreign body since August, sat 1 surgical attempt done without success, and recent admission for an infection in September, and is now followed by podiatry with a planned outpatient surgical excision. In fact, the patient turns out to show not having just left the nuclear scientist's office, explained is working on scheduling surgical repair, but is likely be another one to 2 weeks. The patient tells me she is just tired of this, and "wants her foot back". She mentions/claims had having a fever recent days, and having swelling-although she is afebrile, she has a healing wound on the dorsum of the foot, but I do not clinically appreciate overt signs of infection evident. She has had extensive imaging. She states she has had plenty of an amoxicillin "does not need anymore". The patient was hoping that I would simply perform surgery in the department, but I explained this is not an option. I discussed the case with Dr. Oliver and learned that the patient had just left his office. At this point either vessel clinically appreciate any signs of infection, need for readmission, or additional antibiotics. Reassured, she is instructed she does need to follow up with podiatry for the outpatient procedure, and I have gone ahead and written a refill for the Percocet. Also discussed proper ibuprofen dosing. Patient's discharged in stable condition Source of Hx: Old records Re-Evaluation/Progress : Time of Eval: 18:15 Re-Evaluation/Progress Note: Pt rechecked. Discussed consult with podiatry. Informed pt of plan for treatment. Pt understands and agrees with plan for treatment. F/U instructions and RTER warnings given. All questions addressed. Consultation : Referral / Consult Name: Manoj Oliver DPM Call Returned at: 17:38 Central Office Operator: Agrees with eval, Agrees with plan Note: Discussed case with podiatry. He also does not believe she has a current infection. Give pain meds now and f/u as outpatient. Differential Diagnosis: Negative: Ankle dislocation, Compartment syndrome, Femur fracture, Fibular fracture, Greater trochant fracture, Guillain-Garrison syndrome, Hip fracture, Intertrochanteric fractur, Knee disloc ant, Sprain, Strain Counseled Regarding: Diagnosis, Need for follow-up, When/why to return to ED Discharge & Departure Impression: Primary Impression: Foreign body in right foot Encounter type: subsequent encounter Qualified Code: S90.851D - Superficial foreign body, right foot, subsequent encounter Disposition: Home Discharge Condition All VS Reviewed: Yes Condition: Stable Additional Instructions: 1. I do not have a way to expedite your surgery today. 2. I do not find signs that you need additional antibiotics. 3. Please continue to work with the nuclear scientist Dr. Oliver as he is the best surgeon to help with the foreign body removal and I have talked with him and confirmed that he is working on arranging this surgery for you as an outpatient. 4. Hang in there! 5. I have written a refill of percocet to help with the pain. Continue the iburofen up to 800mg four times a day (3200mg/day). Use the percocet sparingly - remember that it contains a narcotic and causes drowsiness, no driving for at least 4 hours after taking. Referrals: OTHER,PHYSICIAN (PCP) Manoj Oliver DPM Attestation Portions of this note were transcribed by Kingsley Iraheta. I, Dr. Aparicio, personally performed the history, physical exam and medical decision-making; I reviewed and confirmed the accuracy of the information in the transcribed note. Signed by Bob Roman, 10/18/16 - [id number] copies to: Manoj Oliver DPM, Matthew F MD Oct 18, 2016 17:20 KINGSLEY IRAHETA Oct 18, 2016 17:23
[2016-10-18 17:45] VITALS: BP 113/73; PULSE 80; RESP 13; O2SAT 98
[2016-10-18] MEDS ORDERED: oxyCODONE-Acetamin 5-325 mg Tablet PO ONE (18:25)
[2016-10-18] MEDS ORDERED: OXYC1TAB24 PO (18:26)
[2016-10-18 19:03] VITALS: BP 113/73; PULSE 80; RESP 13; O2SAT 98
== END 2016-10-18 18:38 | disposition home or self-care (01) ==
LOC: SED 16:16
DX: S90.851D Superficial foreign body, right foot, subsequent encounter (principal); W45.8XXD Other foreign body or object entering through skin, subsequent encounter; Y93.89 Activity, other specified; Y92.9 Unspecified place or not applicable; Y99.8 Other external cause status; R50.9 Fever, unspecified; M79.89 Other specified soft tissue disorders; I10 Essential (primary) hypertension; B20 Human immunodeficiency virus [HIV] disease; Z86.14 Personal history of Methicillin resistant Staphylococcus aureus infection; Z98.890 Other specified postprocedural states; Z87.891 Personal history of nicotine dependence; Z88.1 Allergy status to other antibiotic agents; Z88.5 Allergy status to narcotic agent; Z88.8 Allergy status to other drugs, medicaments and biological substances
CPT/HCPCS: 99283; G0463

== ENCOUNTER 2016-11-12 07:06 | Day surgery (SDC) | payer OTHER ==
[~2016-11-12] VITALS: Ht 175.3 cm; Wt 126.2 kg
[2016-11-12] VITALS (11 sets, daily range): BP systolic 101–117; BP diastolic 53–77; PULSE 60–83; RESP 11–19; O2SAT 93–99
[2016-11-12] MEDS: Lactated Ringer's 1,000 ML IV SCH ×2 (05:42→09:14)
[~2016-11-12 07:06] MED LIST changes: -Acetaminophen PO; +Clindamycin Inj 600 MG in IV Premix 1 EACH IV ONE; -DOXY100T2 PO; -OXYC1TAB24 PO
[2016-11-12] MEDS ORDERED: Propofol 10,000 mCg/mL 20 mL Inj ONE (07:07)
[2016-11-12] MEDS ORDERED: fentaNYL-PF 50 mCg/mL 2 mL Inj ONE (07:07)
[2016-11-12] MEDS ORDERED: Lactated Ringer's 1,000 ML IV SCH (09:05)
[2016-11-12] MEDS ORDERED: MetoCLOpramide 5 mg/mL 2 mL Inj IVPUSH PRN (09:05)
[2016-11-12] MEDS ORDERED: Ondansetron 2 mg/mL 2 mL Inj IVPUSH PRN (09:05)
[2016-11-12] MEDS ORDERED: Lactated Ringer's 500 ML IV PRN (09:05)
[2016-11-12] MEDS ORDERED: Dexamethasone 4 mg/mL Inj IVPUSH PRN (09:05)
[2016-11-12] MEDS ORDERED: Phenylephrine 10,000 mCg/mL Inj IVPUSH PRN (09:05)
[2016-11-12] MEDS ORDERED: EPHEDrine Sulfate 50 mg/mL Inj IVPUSH PRN (09:05)
--- NOTE | 2016-11-12 09:05 | PCM.HPANE ---
Patient Data Surgeon Admitting Provider: Attending Provider:Manoj Oliver DPM Primary Care Physician:Tyrone Other Provider:Elijah Monk Anesthesia Reason for Visit Foreign Body In Right Foot Ht/WT & BMI Height (Feet): 5 Height (Inches): 9 Weight (Kilograms): 125.6 Body Mass Index 41.00 Allergies Coded Allergies: morphine (Verified Allergy, Severe, anaphalysis, 11/09/16) nitrofurantoin (Verified Allergy, Severe, Hives, stopped breathing, 11/09/16 ) amoxicillin (Verified Allergy, Intermediate, Hives, 11/09/16) TOLERATED KEFLEX IN PAST Past Anesthesia History Anesthesia History: Positive for:: Fam Anesthesia Reaction (Mother long to wake up post op), Denies:: Abnormal Airway, Anesthesia Reactions, Difficult Intubation, Fam Malignant Hypertherm, Malignant Hyperthermia Diabetes History Hx Diabetes?: No MRSA MRSA: No Medications Reported Medications Gabapentin 300 Mg [id number] Mg PO TID #90 09/26/16 Trazodone 50 Mg [id number] Mg PO HS #90 09/26/16 Citalopram 40 Mg [id number] Mg PO DAILY #30 09/26/16 Clonazepam 1 Mg Tablet2 Mg PO BID #90 04/29/16 Ibuprofen 800 Mg [id number] Mg PO QID PRN For Pain Ref 0 08/04/15 Discontinued Scripts oxyCODONE-Acetaminophen 5-325 mg 1 Each Tablet1-2 Tab PO Q6H PRN For Pain #25 TABLET Ref 0 Prov:Mike Aparicio MD 10/18/16 [Acetaminophen] (Tylenol)325 MG TABLET No Conflict [id number] Mg PO Q6H PRN For Pain Prov:Seferino Solo MD 09/29/16 Doxycycline Hyclate 100 Mg [id number] Mg PO BID #14 TABLET Prov:Seferino Solo MD 09/29/16 oxyCODONE-Acetaminophen 5-325 mg 1 Each Tablet1-2 Tab PO Q6H PRN For Pain #15 TABLET Ref 0 Prov:Mike Aparicio MD 07/29/16 History History of ENT Problems?: No HEENT History: Denies:: Abnormal Airway Cataracts Difficult Intubation Dysphagia Glaucoma Hearing Problem Sinus Problem TMJ Denture Type: None Teeth Condition: Within Normal Limits Hx of Heart Problems?: No Cardiovascular History: Denies:: Abdominal Aortic Aneurism Atrial Fibrillation Cardiac Surgery Chest Pain Congestive Heart Failure Coronary Artery Disease Edema Heart Murmur Hypertension Irregular Heartbeat Pacemaker Peripheral Vascular Rheumatic Fever Thrombophlebitis Valvular Heart Disease Hx of Respiratory Problem?: No Respiratory History: Denies:: Asthma COPD Chest Surgery Cough Dyspnea Emphysema Hemoptysis Pneumonia Pulmonary Embolism Tuberculosis Use of C-PAP Machine Use of Inhalers / NEBS Hx Neurologic Problems?: No Neurological History: Denies:: Alzheimer's Disease CVA Dementia Dizziness Headaches Multiple Sclerosis Parkinson's Disease Seizures TIA Hx of GI Problems?: No Hx of Problems?: No Genitourinary History: Denies:: HX of Hemodialysis Kidney Stones Urinary Tract Infection HX of Peritoneal Dialysis: No Female Hx: Denies:: Currently Endometriosis Pelvic Inflammatory Problems with Breasts? Skin History: Denies:: History Skin Disorders? Pressure Ulcers Hx Musculoskeletal Problems?: Yes Musculoskeletal History: Positive for:: Back Injury (Laminectomy 2009) Denies:: Degenerative Joint Fibromyalgia Joint Replacement Musculoskeletal Trauma Myasthenia Gravis Osteoarthritis Rheumatoid Arthritis Systemic Lupus Hx of Psycho/Social Problems?: Yes Psycho Social History: Positive for:: Anxiety Hx Depression Denies:: Bipolar Disorder Suicide Attempt Hx Surgeries?: Yes (09/07/2016 rt foot) Hx Any Other Health Problems?: No Other History: Positive for:: Hospitalization (09/07/16) Denies:: Cancer Endocrine Disease Thyroid Disease History Blood Transfusions: Positive for:: Accept Blood Products? Denies:: Blood Transfuse Reaction Blood Transfusions Hx Diabetes: No Hx Alcohol Use: NoHx Substance Use: No Smoking Status: Former Smoker Have You Smoked inLast 12 mo: No Stop/Bang S-Snoring: Do You Snore Loudly: No T-Tired: feel tired, fatigued: No O-Obsered: Observed not breath: No P-Blood Pressure: treated: No B- Body Mass Index > 35 kg/m2: Yes A- Age over 50: No N- Neck Large Circumference: No G- Gender Male: No IRVIN Total Score: 1 IRVIN Risk Assessment: Low Risk, <3 Yes Risk Assessment Category Category 1A: Patient has history of documented sleep apnea, and HAS NOT received any narcotic, sedative or anesthesia administration during this stay. Category 1B: Patient has history of documented sleep apnea, and HAS received any narcotic , sedative or anesthesia administration during this stay Category 2: Patient has SUSPECTED Obstructive Sleep Apnea, and HAS received any narcotic , sedative or anesthesia administration during this stay. Category 3: Patient has SUSPECTED Obstructive Sleep Apnea and HAS NOT received narcotic, sedative or anesthesia administration during this stay. Category 4: Outpatient in Procedural Areas with known sleep apnea or who screen positive for High Risk via the STOP/BANG questionnaire. Exam Exam General Appearance: Alert HEENT/AIRWAY: MP 2, Neck Movement (from, 3 fb) Lungs: Clear to Auscultation Heart: Regular Rate/Rhythm Meds/Labs/Diagnostics Admission Meds Current Medications Lactated Ringer's (Lr) 1,000 ml @ 120 mls/hr Q8H20M IV Last administered on t 05:42; Start 11/12/16 at 05:00; Stop 11/12/16 at 13:19 Plan Impression Patient chart reviewed, patient interviewed and anesthestic plan with risks, benefits, and alternatives discussed, and informed consent obtained. NPO per Anesth. Guidelines: Yes ASA Physical Status: ASA2 Mod Systemic Disease Anesthetic Plan: MAC Bene/Risks/Altern/Consents: Yes HP Complete Prior to Induction: Yes Per Dias MD Nov 12, 2016 07:24
[2016-11-12] MEDS ORDERED: Bupivacaine-MPF 0.5% 30 mL Inj INFILTRATE ONE (09:13)
[2016-11-12] MEDS ORDERED: HYDROmorphone 1 mg/mL Inj ONE (09:36)
[2016-11-12] MEDS ORDERED: HYDROmorphone 1 mg/mL Inj IVPUSH ONE ×2 (09:40→10:05)
[2016-11-12] MEDS ORDERED: oxyCODONE-Acetamin 5-325 mg Tablet PO PRN (09:40)
--- NOTE | 2016-11-12 09:45 | PCM.PODPO ---
Podiatry Operative Report Date of Service: Nov 12, 2016 Date of Service Nov 12, 2016 Pre Operative Diagnosis Foreign body right foot Nonhealing wound right foot Post Operative Diagnosis Same as preoperative diagnoses Procedure Excision of foreign body right foot Primary closure of wound right foot Surgeon Surgeon: Manoj Oliver DPM Assistants: None Indication for Procedure Painful foreign body right foot with nonhealing ulceration Findings Metallic foreign body consistent with the tip of a sewing needle recovered from the dorsal aspect of the right fifth metatarsophalangeal joint. Dehisced previous surgical wound with nonhealing chronic ulceration measuring 0.5 cm x 0.3 cm x 0.3 cm in depth Details of Procedure Patient was identified in the preoperative area and all preoperative comorbidities and allergies were identified and thoroughly discussed. The patient was transported into the operating room and placed on the operating room table in the normal supine position. The patient was then prepped and draped in the normal aseptic technique. This patient was placed under Mac anesthesia by the anesthesia service with a preoperative block by podiatry consisting of 5 mL of 2% lidocaine plain given locally. Attention was first paid to the dorsal aspect of the right fourth intermetatarsal space. The previous foreign body excision site incision was identified and a nonhealing ulceration was noted. The incision was extended distally approximately 1/2 cm and the skin edges of the ulcer were excised. Blunt dissection was carried down with a Metzenbaum scissor toward the dorsal medial aspect of the fifth metatarsophalangeal joint. Intraoperative C-arm x-ray was utilized to identify the underlying metallic foreign body which appeared to be the tip of a sewing needle. The metallic foreign body was identified and removed utilizing a needle mccarthy. Intraoperative C-arm x-ray was then utilized to verify complete removal of the underlying foreign body. This wound was ankle was a flush with large amounts of normal saline. The incision was closed utilizing number 3. 0 Prolene in simple suture fashion. This wound was then dressed with Adaptic sterile 4 x 4 gauze Kerlix and a minimally compressive Stone bandage. The patient was awoken by anesthesia. No complications occurred during this procedure. The patient was transported out of the operating room by the anesthesia service into the postanesthesia care unit. Grafts, Implants: None Complications There were no periprocedural complications identified. Condition Stable Anesthetic Administered: MAC Catheters: None Output, Estimated Blood Loss: 10 Blood Admin during surgery: No Surgical Cast or Splint: None Surgical Specimen Removed: No Specimen sent to Pathology: No Post Operative Plan Ice and elevate right foot Nonweightbearing right foot Keep dressing clean dry and intact Discharged to home when stable Contact office with any questions or concerns regarding care Manoj Oliver DPM Nov 12, 2016 09:45
[2016-11-12] MEDS: fentaNYL-PF 50 mCg/mL 2 mL Inj IVPUSH PRN ×2 (10:00→10:10)
--- NOTE | 2016-11-12 10:02 | PCM.ANEP1 ---
Post Anesthesia PACU Phase 1 Assessment Vital Signs Vital Signs Date Time Temp Pulse Resp B/P Pulse Ox O2 Delivery O2 Flow Rate FiO2 11/12/16 09:50 36.5 69 14 110/63 96 Room Air 11/12/16 09:45 71 17 107/65 96 Room Air 11/12/16 09:40 72 17 108/65 96 Room Air 11/12/16 09:35 76 16 106/62 97 Room Air 11/12/16 09:30 36.1 75 11 108/63 97 Room Air 11/12/16 07:58 36.9 83 16 112/69 99 Room Air Anesthetic Administered: MAC Level of Alertness: Awake, talking ROSS's with Equal Strength: Yes Pain: Yes Nausea or Vomiting: No CV Function & Hydration Stable: Yes Airway Device: Oxygen Delivery: Room Air Lungs: Clear to Auscultation Dermatome Level: Full Sensation PACU Phase 2 Assessment Complications: No Follow up Care: N/A Patient Instructions Provided: N/A Per Dias MD Nov 12, 2016 10:02
== END 2016-11-12 23:59 | disposition home or self-care (01) ==
LOC: SAS 07:06
PROVIDERS: ATTEND Podiatrist Foot & Ankle Surgery
DX: S90.851A Superficial foreign body, right foot, initial encounter (principal); T81.4XXA Infection following a procedure, initial encounter; L03.031 Cellulitis of right toe; F41.8 Other specified anxiety disorders; E66.01 Morbid (severe) obesity due to excess calories; Z68.41 Body mass index [BMI] 40.0-44.9, adult; Z87.891 Personal history of nicotine dependence; W26.8XXA Contact with other sharp object(s), not elsewhere classified, initial encounter; W45.8XXA Other foreign body or object entering through skin, initial encounter; Y93.9 Activity, unspecified; Y92.9 Unspecified place or not applicable; Y99.8 Other external cause status

== ENCOUNTER 2016-11-25 10:47 | Observation (INO) | payer OTHER ==
[~2016-11-25] VITALS: Ht 175.3 cm; Wt 129.5 kg
[~2016-11-25 10:47] MED LIST changes: -Clindamycin Inj 600 MG in IV Premix 1 EACH IV ONE
[2016-11-25 11:02] VITALS: BP 127/86; PULSE 88; RESP 18; O2SAT 99
--- NOTE | 2016-11-25 11:21 | ED.REPORT ---
HPI-Back Pain 40 and Over Date of Service Nov 25, 2016 ED Provider: Erich Reno MD Pt is a 41 year old female with a hx of laminectomy presenting to the ED complaining of back pain, numbness and tingling in her legs onset when she bent down to waste picker her child and felt a pop in her back prior to arrival. Associated symptoms include LE pain, nausea, weakness, and urinary incontinence x 1 which she was able to stop. She denies any stool incontinence. She had an MRI in August 2016 that found slipped discs. Nursing Notes Stated Complaint: LEGS NUMB Chief Complaint: Back Pain or Injury Nursing Notes Reviewed: Yes Allergies: Coded Allergies: morphine (Verified Allergy, Severe, anaphalysis, 11/09/16) nitrofurantoin (Verified Allergy, Severe, Hives, stopped breathing, 11/09/16 ) amoxicillin (Verified Allergy, Intermediate, Hives, 11/09/16) TOLERATED KEFLEX IN PAST Scheduled Citalopram (Citalopram) 40 Mg Tablet 40 MG PO DAILY Clonazepam (Clonazepam) 1 Mg Tablet 2 MG PO TID Gabapentin (Gabapentin) 300 Mg Capsule 300 MG PO TID Methocarbamol (Methocarbamol) 750 Mg Tablet 750 MG PO TID Trazodone (Trazodone) 50 Mg Tablet 150 MG PO HS Scheduled PRN Ibuprofen (Ibuprofen) 800 Mg Tablet 800 MG PO QID PRN PRN For Pain General Time Seen by MD: 11:19 Chief Complaint Back pain Hx Obtained From: Patient Arrived By: Walk-in Sudden in Onset?: Yes Onset Occurred: Just prior to arrival Symptom Duration: Since onset Caused by: Lifting Quality: Painful Severity: Current: Severe Severity: Maximum: Severe Recent Healthcare: No recent doctor visit, No recent hospitalization Similar Sx Previous: Yes Past Medical History Past Medical History Notes: Patient seen in ED 06/29/16 for back pain - No high grade stenosis on MRI Several ED visits for back pain Admitted: 09/25- for pain or foreign body right foot with cellulitis, podiatry doctor all him, discharge with plan for outpatient excision Past Medical History Herniated discs Seizures Cellulitis Anxiety History depression History of heart murmur as infant Hypertension, not on medications History polycystic ovarian syndrome Obesity ho reported transverse myelitis h/o MRSA R Foot 09/2016 HIV+ per EMR notes, however see ID consultation 09/2016: HIV negative Past Surgical History Tubal ligation Laminectomy L4-L5 in 2009 He sections in 2000, 2013 Hysteroscopy Meniscectomy L4-L5 Right foot FB removal 09/07/16 Reports: , Tonsillectomy Family History Noncontributory Smoking History Former Smoker Social History Alcohol Use: Denies alcohol use Drug Use: Denies drug use Occupation lives with boyfriend Ambulatory Status Independent Review of Systems Review of Systems Note: Denies stool incontinence GI: Reports: Nausea Female: Reports: Incontinence Musculoskeletal: Reports: Back pain, Extremity pain Neurologic: Reports: Numbness, Weakness Complete sys rev & neg: except as marked. Physical Exam Initial Vital Signs Vital Signs (First) Date Time Temp Pulse Resp B/P Pulse Ox O2 Delivery O2 Flow Rate FiO2 11/25/16 11:02 36.7 88 18 127/86 99 Room Air Initial VS: Reviewed Extremities: Vascular intact, Neuro intact, No swelling, No tenderness Skin: Warm, Dry, No cyanosis Psychiatric: Mood/affect normal, Behavior normal, Normal thought content General/Constitutional: Awake, Alert Distress / Hydration: Positive: Distress moderate (Due to pain) Respiratory / Chest: Atraumatic, Breath sounds NL, Breath sounds = bilat, No respiratory distress Cardiovascular: Heart rate NL, Regular rhythm, Heart sounds NL Abdomen: Atraumatic, Soft, Non-tender Back: No CVA tenderness Lumbar spine tenderness Neurologic: Oriented X3, Speech NL Pt is able to lift legs off bed but has no strength against resistance. Rectum / Perineum: Atraumatic No rectal tone. Interpretation & Diagnostics MRI LUMBAR SPINE NO CONTRAST: IMPRESSION: 1. No large disc protrusions, extrusions, or new imaging findings are evident to explain the patient's lack of rectal tone. 2. Mild to moderate multilevel degenerative changes of the lumbar spine are similar to the prior study. 3. Small central disc protrusion at L3-L4 with an associated annular fissure is larger on the current exam, but does not result in significant neural impingement. 4. Postoperative changes at L4-L5. 5. The degree of central canal and neural foraminal narrowing is unchanged since the prior study. Dictated by: Gomez Lord M.D. on 11/25/2016 at 12:27 MRI THORACIC SPINE NO CONTRAST: IMPRESSION: 1. T10-T11 circumferential disc bulge causes moderate central canal stenosis with ventral cord flattening. No intramedullary cord edema. 2. Additional T9-T10 right central, subarticular, and foraminal disc protrusion causes asymmetric effacement of the right lateral recess, with mild right foraminal stenosis and minimal right ventral cord flattening. 3. T6-T7 left central disc protrusion causes left ventral cord flattening as well, without intramedullary cord edema. Dictated by: Emerson Eubanks M.D. on 11/25/2016 at 16:00 Lab Results Interpretation Result Diagram: 11/26/16 0501 11/26/16 0345 Test 11/25/16 12:15 11/25/16 17:59 11/25/16 18:03 Hold Purple Top Tube Received (Received) Hold Blue Top Tube Received (Received) Hold [place] Top Tube Received (Received) Hold [place] Top Tube Received (Received) Hold Urine Received (Received) Urine Color Yellow (YELLOW) Urine Appearance Cloudy (CLEAR,HAZY) Urine pH 5.5 (5.0-8.0) Urine Specific [place] 1.030 (1.003-1.035) Urine Protein Negativemg/dL (NEG,TRACE) Urine Glucose (UA) Negativemg/dL (NEGATIVE) Urine Ketones Negativemg/dL (NEGATIVE) Urine Occult Blood Negative (NEGATIVE) Urine Nitrite Negative (NEGATIVE) Urine Bilirubin Negative (NEGATIVE) Urine Urobilinogen Normalmg/dL (NORMAL) Urine Leukocyte Esterase Negative (NEGATIVE) Urine RBC 0-2/hpf (0-2) Urine WBC 0-5/hpf (0-5) Urine Epithelial Cells Many/hpf (NONE-MOD) Urine Crystals None seen (NONE SEEN) Urine Bacteria Moderate/hpf (NONE-FEW) Urine Hyaline Casts None/lpf (NONE) Urine Granular Casts None seen (NONE SEEN) Urine Waxy Casts None seen (NONE SEEN) Urine Red Blood Cell Casts None seen (NONE SEEN) Urine White Blood Cell Casts None seen (NONE SEEN) Urine Mucus None seen (None Seen) Urine Trichomonas None seen (NONE SEEN) Urine Yeast None (NONE SEEN) Urinalysis Comment None Urine Culture Reflexed Indicated Re-Eval/Medical Decision Med Decision/Clinical Course 41-year-old female history of low back surgery presenting with low back pain since yesterday after feeling a pop while holding her child. She reported incontinence, bilateral lower extremity numbness and weakness possibly due to pain. On exam decreased strength of ambulatory. She denied any rectal sensation or perineal sensation. MRI thoracic spine and lumbar spine with no surgical etiology no evidence of cauda equina. Patient was given many doses of Dilaudid without resolution or improvement in pain. She was admitted for pain control. Urine negative for infection. Admitted Re-Evaluation/Progress #1: Time of Eval: 15:53 Patient Status: Condition improved Re-Evaluation/Progress Note: Discussed plan for repeat MRI. Pt understands and agrees. Re-Evaluation/Progress #2: Time of Eval: 17:25 Patient Status: Condition improved Re-Evaluation/Progress Note: Discussed MRI results and plan for discharge. Pt understands and agrees with plan. All pt questions addressed. Re-Evaluation/Progress #3: Time of Eval: 17:41 Patient Status: Condition improved Re-Evaluation/Progress Note: Pt unable to ambulate on her own secondary to pain. Discussed plan for admission for pain control. She understands and agrees. Consultation #1: Consulted With: Neurosurgery Call Returned at: 14:47 Note: Dr. Jesus at [facility] recommends MRI of thoracic spine and if it's normal follow up with neurology. Consultation #2: Consulted With: Hospitalist Grounds Cleaner: Will see patient, Agrees with plan, Accepts admit Counseled Regarding: Diagnosis, Lab results, Need for admission Discharge & Departure Impression: Primary Impression: Back pain Back pain location: low back pain Chronicity: unspecified Back pain laterality: unspecified Sciatica presence: unspecified whether sciatica present Qualified Code: M54.5 - Low back pain Additional Impression: Bulging disc Disposition: ADMITTED TO HOSPITAL Discharge Condition All VS Reviewed: Yes Condition: Improved Referrals: NOPCP (PCP) Bob Attestation Portions of this note were transcribed by Meche Peace. I, Dr. Reno personally performed the history, physical exam and medical decision-making; I reviewed and confirmed the accuracy of the information in the transcribed note. Signed by: Bob Cantor, 11/25/2016. Erich Reno MD Nov 25, 2016 11:21 MECHE PEACE Nov 25, 2016 11:52
[2016-11-25] MEDS: HYDROmorphone 1 mg/mL Inj IVPUSH PRN ×6 (12:20→20:28)
[2016-11-25] MEDS: Ondansetron 2 mg/mL 2 mL Inj IVPUSH PRN ×3 (12:20→20:29)
--- NOTE | 2016-11-25 13:41 | DRSVH ---
PROCEDURE: MRI LUMBAR SPINE WITHOUT CONTRAST ([id number]) INDICATIONS: low back injury, no rectal tone TECHNIQUE: Noncontrast sagittal T1 spin echo and T2 fast echo, sagittal STIR, axial T1 and T2 fast spin echo thr ough the lumbar spine. In cases with scoliosis, additional coronal T2 fast spin echo may be performe d. COMPARISON: [facility], MR, MR LUMBAR SPINE WO CON, 06/29/2016, 17:44. FINDINGS: Image quality: Diagnostic. Spinal Cord: The imaged portions of the spinal cord are normal in size and signal. The conus medulla ris is normal in position. Paraspinous Soft Tissues: No paravertebral masses. Image soft tissues of the abdomen and pelvis are grossly unremarkable; however, not adequately evaluated on this exam. The abdominal aorta is normal in course and caliber. Bones: The vertebral body heights and marrow signal are within normal limits. There is no acute frac ture or dislocation. Lower thoracic levels: No significant degenerative changes of the included lower thoracic levels are present. 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 There is no central canal or neural for aminal narrowing at these levels. L1-L2: A Schmorl's node along the superior L1 endplate is evident. There is no significant disc bulg e at L1-L2. No significant facet arthropathy is evident. There is no central canal or neural forami nal stenosis. Overall, these findings have not significantly progressed. L2-L3: There is disc height loss, disc desiccation and mild diffuse disc bulge with small adjacent Sc hmorl's nodes and mild/early left facet arthrosis. There is no central canal stenosis. However, the re is mild bilateral neural foraminal narrowing. Overall, these findings have not significantly prog ressed. L3-L4: There is mild disc height loss, moderate diffuse disc bulge, disc desiccation, small Schmorl's nodes, and mild bilateral facet arthrosis. There is a small central annular tear are identified wit h a very small disc protrusion, which is slightly more prominent on the current study compared to the previous exam. There is a small disc protrusion does not result in neural impingement of the nerve roots within the lateral recesses. However, there is mild central canal stenosis and mild bilateral neural foraminal narrowing. Overall, these findings have not significant changed. L4-L5: There is moderate disc height loss, diffuse disc bulge, disc desiccation, moderate facet arthr opathy, and ligamentum flavum prominence. Postoperative changes related to a left L5 hemilaminotomy is evident. There is no central canal stenosis. However, there is mild to moderate bilateral neural foraminal narrowing (right greater than left). These findings are similar to the prior study. L5-S1: There is moderate disc height loss, diffuse disc bulge, disc desiccation, and moderate facet a rthrosis (record and left). There appears to be a small synovial cyst involving the right facet join t at projects into the central canal without significant neural impingement. This cyst measures appr oximately 4 mm in diameter and does not appear to have increased in size since the previous exam. Th ere is no central canal stenosis. However, there is moderate right and mild to moderate left neural foraminal narrowing. These findings are similar to the prior study. IMPRESSION: 1. No large disc protrusions, extrusions, or new imaging findings are evident to explain the patient 's lack of rectal tone. 2. Mild to moderate multilevel degenerative changes of the lumbar spine are similar to the prior marko dy. 3. Small central disc protrusion at L3-L4 with an associated annular fissure is larger on the curren t exam, but does not result in significant neural impingement. 4. Postoperative changes at L4-L5. 5. The degree of central canal and neural foraminal narrowing is unchanged since the prior study. Dictated by: Gomez Lord M.D. on 11/25/2016 at 12:27 Approved by: Gomez Lord M.D. on 11/25/2016 at 12:40
[2016-11-25 14:13] VITALS: BP 98/57; PULSE 78; RESP 17; O2SAT 95
--- NOTE | 2016-11-25 16:11 | DRSVH ---
PROCEDURE: MRI THORACIC SPINE WITHOUT CONTRAST ([id number]) INDICATIONS: 41 year-old female with incontinence and decreased rectal tone. TECHNIQUE: Noncontrast sagittal T1 spine echo and T2 fast spin echo, sagittal STIR, axial T1 and T2 fast spin ec ho through the thoracic spine. COMPARISON: [facility], MR, MR LUMBAR SPINE WO CON, 11/25/2016, 12:30. FINDINGS: Image quality: Excellent. Alignment and Curvature: There is normal bony alignment. Bone Marrow: Marrow is of normal overall signal. No acute vertebral body compression fractures. Spinal Cord: Visualized spinal cord is normal in size and signal. Paraspinous Soft Tissues: No paravertebral masses. Miscellaneous: Axial images demonstrate T6-T7 left central disc protrusion, causing left ventral cord flattening. On axial image 11, more extensive T9-T10 right central, subarticular, and foraminal disc protrusion causes asymmetric effacement of the right lateral recess and right foramen, with minimal right ventral cord flattening. T10-T11 circumferential disc bulge causes moderate central canal steno sis with mild ventral cord flattening. IMPRESSION: 1. T10-T11 circumferential disc bulge causes moderate central canal stenosis with ventral cord flatte jonh. No intramedullary cord edema. 2. Additional T9-T10 right central, subarticular, and foraminal disc protrusion causes asymmetric eff acement of the right lateral recess, with mild right foraminal stenosis and minimal right ventral cor d flattening. 3. T6-T7 left central disc protrusion causes left ventral cord flattening as well, without intramedul sohan cord edema. Dictated by: Emerson Eubanks M.D. on 11/25/2016 at 16:00 Approved by: Emerson Eubanks M.D. on 11/25/2016 at 16:10
[2016-11-25 17:50] LABS: BASOPHILS % (AUTO) 0.2 % (0-3); EOSINOPHILS % (AUTO) 2.7 % (0-5); MONOCYTES % (AUTO) 8.1 % (4-12); Mean Corpuscular Hemoglobin 33.3 pg (27.0-35.0); Mean Corpuscular Volume 96.3 fL (81-100); NEUTROPHILS % (AUTO) 65.5 % (40-74); Platelet Count 261 bil/L (150-400)
[2016-11-25 18:20] VITALS: BP 111/75; PULSE 111; RESP 17; O2SAT 97
[2016-11-25 18:21] LABS: APPEARANCE,URINE CLOUDY (CLEAR,HAZY); COLOR,URINE YELLOW (YELLOW); OCCULT BLOOD,URINE NEGATIVE (NEGATIVE); PH,URINE 5.5 (5.0-8.0); UROBILINOGEN,URINE NORMAL (NORMAL)
[2016-11-25] MEDS ORDERED: Ondansetron 2 mg/mL 2 mL Inj IVPUSH PRN (18:30)
[2016-11-25] MEDS ORDERED: Alum-Mag Hydrox-Simeth 30 mL Suspension PO PRN ×2 (18:30→20:10)
[2016-11-25 19:51] VITALS: BP 118/78; PULSE 108; RESP 17; O2SAT 98
[2016-11-25] MEDS ORDERED: Polyethylene Glycol (PEG) 17 Gm Powder PO PRN (20:10)
[2016-11-25] MEDS ORDERED: Dexamethasone Inj 10 MG in 0.9% Sodium Chloride-Pha MIX 50 ML IV ONE (20:10)
[2016-11-25 20:15] VITALS: BP 114/75; PULSE 64; RESP 18; O2SAT 97
--- NOTE | 2016-11-25 20:35 | PCM.HPMED ---
Subjective Date of Service Nov 25, 2016 Primary Provider: Admitting Physician: Paula Estrada DO Primary Care Physician: Other,Physician Attending Physician: Paula Estrada DO Chief Complaint: Back pain and lower extremity numbness History of Present Illness: Patient is a 41-year-old woman with complicated lower back spinal history, she status post laminectomy, meniscectomy, with continued neuropathic pain for which she takes gabapentin and ibuprofen, presents with severe low back pain with numbness and weakness into her legs bilaterally. She reports yesterday bending over to mixing picker tender her 3-year-old when she felt a pop with immediate pain. She currently describes back pain as "somebody stabbing me repeatedly" and pain in her legs as tingling with numbness. She demonstrates she is unable to feel any sensation in her anterior medial thighs, bilaterally. She has been incontinent of urine, not stool. She had an MRI in August of this year which showed slipped disks. She denies any chest pain, but reports some lightheadedness currently, "difficulty catching my breath" mild nausea, no vomiting diarrhea or constipation, no rashes, no dysuria. She has worsening weakness and numbness in her lower extremities. She has a tremor which she says is due exclusively to the worsening pain. According to ER physician documentation Dr. Jesus at [facility] neurosurgery recommends MRI of thoracic spine and if it's normal follow up with neurology. MRI was performed in the emergency department which was read as having unchanged central canal or neural foraminal narrowing from previous study, no neuronal impingement, no spinal edema. On attempt to ambulate from the emergency department she was unable to secondary to pain and weakness. On presentation: 36.7, 88, 18, 127/86, 99% on room air WBCs 13.5, hematology is otherwise unremarkable Electrolytes, liver and kidney function pristine. Urinalysis negative for signs of infection Lumbar and thoracic spine MRIs were performed, did not show any acute changes from previous or pathology to explain patient's current change in symptoms. Patient is admitted for pain and symptom management, with anticipation to be seen by neurology. Review of Systems: A comprehensive review of systems was conducted with the patient and found to be negative except as above in the history of presenting illness. Allergies Coded Allergies: morphine (Verified Allergy, Severe, anaphalysis, 11/09/16) nitrofurantoin (Verified Allergy, Severe, Hives, stopped breathing, 11/09/16 ) amoxicillin (Verified Allergy, Intermediate, Hives, 11/09/16) TOLERATED KEFLEX IN PAST Home Medications Citalopram 40 mg by mouth daily Clonazepam 2 mg by mouth twice a day Gabapentin 300 mg 3 times a day by mouth Ibuprofen 800 mg by mouth 4 times a day Trazodone 100 mg by mouth at bedtime. PMH Herniated discs Seizures Cellulitis Anxiety History depression History of heart murmur as Hypertension, not on medications History polycystic ovarian syndrome Obesity ho reported transverse myelitis h/o MRSA R Foot 09/2016 HIV+ per EMR notes, however see ID consultation 09/2016: HIV negative Surgical History Tubal ligation Laminectomy L4-L5 in 2009 He sections in 2000, 2013 Hysteroscopy Meniscectomy L4-L5 Right foot FB removal 09/07/16 Reports: , Tonsillectomy Family History Mother: Suspected diabetes, "heart issues" alive at 65 years old Father: "Spinal issues similar to mine" alive at 67 years old Social History Hx Alcohol Use: No Hx Substance Use: No Hx Tobacco Use: Yes Smoking Status: Former Smoker (quit September 2013) Living Arrangement: with Family Exam Vital Signs Vital Sign - Last Date Time Temp Pulse Resp B/P Pulse Ox O2 Delivery O2 Flow Rate FiO2 11/25/16 19:51 36.7 108 17 118/78 98 Room Air Exam General: Laying in bed, in moderate distress HEENT: Normocephalic, atraumatic, EOMI grossly, his membranes moist, neck supple without lymphadenopathy, no JVD, pupils are pinpoint. Cardiovascular: Regular rate and rhythm, no clicks murmurs rubs, peripheral pulses 2/4 equal bilaterally Pulmonary: Clear to auscultation bilaterally, no W/R/R. Abdominal: Soft to palpation, bowel sounds present 4, no hepatosplenomegaly. Negative rebound. Extremities: No edema appreciated. No tenderness, asymmetry. Neuro: Patellar reflexes 3/4 bilaterally, numbness to soft touch bilateral lower extremities, left numbness greater than right. Unable to assess Achilles reflex, and rectal tone secondary to low back pain with any slight manipulation. MSK: Passive and active manipulation movement of lower extremities causes extreme pain to lower back. She is able to push down with both feet against resistance equally albeit with pain radiating into her back. Psych: A&O4, mood and affect congruent to patient's distress and pain. Lab and Diagnostics Result Diagram: 11/25/16 1215 11/25/16 1215 X-Rays, CTs and MRIs Thoracic MRI performed 11/25/2016 IMPRESSION: 1. T10-T11 circumferential disc bulge causes moderate central canal stenosis with ventral cord flattening. No intramedullary cord edema. 2. Additional T9-T10 right central, subarticular, and foraminal disc protrusion causes asymmetric effacement of the right lateral recess, with mild right foraminal stenosis and minimal right ventral cord flattening. 3. T6-T7 left central disc protrusion causes left ventral cord flattening as well, without intramedullary cord edema. Dictated by: Emerson Eubanks M.D. on 11/25/2016 at 16:00 Lumbar MRI performed 11/25/2016 IMPRESSION: 1. No large disc protrusions, extrusions, or new imaging findings are evident to explain the patient's lack of rectal tone. 2. Mild to moderate multilevel degenerative changes of the lumbar spine are similar to the prior study. 3. Small central disc protrusion at L3-L4 with an associated annular fissure is larger on the current exam, but does not result in significant neural impingement. 4. Postoperative changes at L4-L5. 5. The degree of central canal and neural foraminal narrowing is unchanged since the prior study. Dictated by: Gomez Lord M.D. on 11/25/2016 at 12:27 Assessment & Plan Elena Dent is a 41-year-old woman with substantial lumbar spine surgical history presents with stabbing low back pain with numbness, weakness to her lower extremities and urinary incontinence, MRI unremarkable for change in MRI findings from previous, admitted for pain management and further neuro evaluation. Acute on chronic low back pain, with urinary incontinence and bilateral paresthesia, present on admission, active Given the history this may represent a lumbar back muscle strain exacerbating coexisting neurologic symptoms. Dr. Edwards of Neurosurgery at [facility] spoke with Dr. Mike Aparicio regarding MRI findings and agreed that there is no emergent surgical findings. Agreed with inpatient medical treatment. Pain management with oxycodone, tizanidine, home ibuprofen 800 mg 4 times a day , 300 mg gabapentin 3 times a day. One dose 10mg Dexamethasone ordered. MRI findings not revealing, see results as above Neurology consult placed Physical therapy evaluation and recommendations Chronic anxiety, present on admission, stable Citalopram 40 mg by mouth daily, clonazepam 2 mg by mouth twice a day, trazodone 100 mg by mouth at bedtime History of depression, present on admission, stable Citalopram Continue to monitor Morbid obesity, present on admission, stable Dietitian consult Physical therapy as above Patient admitted to inpatient status with anticipated length of stay greater than to midnight, based on complexity of diagnosis, anticipated treatment plan, and risk of adverse events. GI prophylaxis H2 blockers, famotidine DVT prophylaxis subcutaneous heparin Pain management NSAIDs, gabapentin, dexamethasone, oxycodone, Dilaudid, APAP. Status: Full code. Discussed with patient bedside. Pain Evaluation: Adequate Pain Control GI Prophylaxis: H2 gayatri VTE Prophylaxis: Sub-Q Heparin (Unfractionated) Resuscitation Status: CPR: Attempt Resuscitation Attending Statement The patient was seen and examined together with house staff on 11/25/2016 and I agree with the history, exam and plan as outlined in the note above. Desean Buchanan DO Nov 25, 2016 20:35 Paula Estrada DO Nov 26, 2016 00:45
[2016-11-25] MEDS ORDERED: METH750T3 PO (20:42)
--- NOTE | 2016-11-25 21:10 | PCM.EDPN ---
ED Note Date of Service Nov 25, 2016 This is simply to note the conversation that Liss called back after the patient been admitted and I spoke with the spine surgeon who is reviewed the patient's lumbar and thoracic MRIs, and I did not identify any acute pathology or surgical etiology to explain the patient's symptoms, and that they recommended medical admission and management. Mike Aparicio MD Nov 25, 2016 21:10
[2016-11-25] MEDS: HYDROmorphone 0.5 mg/0.5 mL iSecure Syringe IVPUSH SCH (23:08)
[2016-11-26 00:07] VITALS: BP 127/74; PULSE 69; RESP 17; O2SAT 95
[2016-11-26] MEDS: oxyCODONE-Acetamin 5-325 mg Tablet PO PRN ×5 (00:09→21:47)
[2016-11-26] MEDS: Heparin 5,000 Unit/mL Inj SUBQ SCH ×3 (00:09→16:42)
[2016-11-26] MEDS: Ondansetron 2 mg/mL 2 mL Inj IVPUSH PRN ×2 (00:09→03:53)
[2016-11-26] MEDS: HYDROmorphone 0.5 mg/0.5 mL iSecure Syringe IVPUSH SCH ×8 (02:30→21:47)
--- NOTE | 2016-11-26 03:36 | NUR ---
Admit Pt arrived to floor at 2014 from ED with c/o increased weakness and unable to stand/walk. Per pt "I bent over and felt a pop in my back, and then was unable to walk/stand. I am having incontinence of urine now and have decreased sensation to my lower extremities. The pain starts in my lower back and radiates down to my knees on both sides." Pt receiving IV Zofran, PO Percocet and IV Dilaudid for pain/nausea control. Cap refill bilateral lower extremities is immediate. Feet are warm to touch. Pedal pulses are palpable.
[2016-11-26 05:10] VITALS: BP 98/66; PULSE 66; RESP 16; O2SAT 95
[2016-11-26 05:20] LABS: BASOPHILS % (AUTO) 0.2 % (0-3); EOSINOPHILS % (AUTO) 0.4 % (0-5); MONOCYTES % (AUTO) 1.6 % (4-12); Mean Corpuscular Hemoglobin 33.6 pg (27.0-35.0); Mean Corpuscular Volume 97.5 fL (81-100); NEUTROPHILS % (AUTO) 82.7 % (40-74); Platelet Count 249 bil/L (150-400)
[2016-11-26 07:51] VITALS: BP 108/72; PULSE 69; RESP 18; O2SAT 95
--- NOTE | 2016-11-26 09:05 | NUR ---
Pain Patient reports pain at 10/10 at start of shift despite consistent Dilaudid administration. Daily medications include Flexeril and Klonipin, which were given along with Motrin and Percocet. Upon moving independently in bed to reposition for breakfast, pt reports hearing/feeling another "pop" in her lower back and states her pain is even worse. Her chronic back pain level is consistently a 6/10, but she denies being close to that since her injury. Plan to administer Dilaudid at this time and physician brigitte ventura. Addendum: 11/26/16 at 1748 by JOSE CARLOS CERRATO RN Emotional support Discussed nature of chronic pain and impact on daily life and relationships. Patient expressed tearful concerns for not getting answers and failed attempts to decrease back pain despite following MD's advice. Education provided on weight loss, anti-inflammatory diets, PT for safe movements - pt is agreeable to these ideas but reports it is difficult having a 3 y/o son and busy . Offered a visit from general merchandise manager which was accepted. She reports feeling much better after their visit.
[2016-11-26 11:54] VITALS: BP 105/71; PULSE 62; RESP 20; O2SAT 97
--- NOTE | 2016-11-26 13:03 | NUR ---
NUTRITION CONSULT Consult received re obesity. Provided pt with healthy eating/nutrition information. Pt w/o questions at this time. Hdts provided.
--- NOTE | 2016-11-26 13:36 | NUR ---
Evaluation completed. Please go to "Notes" then click on "Assessments and Notes" (bottom left corner of screen). Then select appropriate discipline tab on top of screen.
--- NOTE | 2016-11-26 14:42 | NUR ---
Social Work: Screening/Multidisciplinary Rounds D: EMR reviewed. Pt is a 41 y/o female admitted [facility] - no readmit risk score assigned - for back pain per H&P. Pt's insurance is [employer] and PCP is listed as Other Physician. NOK is not listed. Pt declined DPOA/advanced directive ppw upon admit. SW will follow-up with pt regarding NOK and PCP. Pt discussed in multidisciplinary rounds, pt not likely to discharge today. Per MD, pt's discharge is pending work-up for pain. Per PT, PT recommends pt discharge to SNF. SW will discuss barriers to SNF placement due to pt's insurance and high ASHLYN Census at local SNF. PT notes that pt is likely to progress during hospital stay - SW will continue to follow for needs and discuss pt in multidisciplinary rounds tomorrow. No MD orders received at this time. SW will continue to follow. Pt lives in [place] and is independent at baseline. A: Pt who is independent at baseline P: SW to discuss barriers to SNF placement during multidisciplinary rounds tomorrow and further determine PT needs. Per PT, pt likely to progress during hospital stay. No MD orders received at this time. SW will continue to follow. Pt lives in [place] and is independent at baseline. МАРИНА Marin
--- NOTE | 2016-11-26 15:51 | PCM.PNMED ---
Subjective Date of Service Nov 26, 2016 Subjective Patient is in bed, complaining of lower back pain, needs IV opioids to control the pain. MRI of the L spine showed generative changes similar to previous MRI. Exam Vital Signs Vital Sign - Last Date Time Temp Pulse Resp B/P Pulse Ox O2 Delivery O2 Flow Rate FiO2 11/26/16 11:54 36.6 62 20 105/71 97 Room Air Intake and Output 11/25/16 11/25/16 11/26/16 Cumulative From/Thru 15:00 23:00 07:00 11/25/16 11:02 - 11/26/16 05:55 Intake Total 901 ml 901 ml Output Total 150 ml 150 ml Balance 751 ml 751 ml Intake Oral 800 ml 800 ml IV Total 101 ml 101 ml Output Urine Total 150 ml 150 ml # Bowel Movements 0 0 Exam PHYSICAL EXAM: GENERAL: Alert, not in distress, emotional HEAD: atraumatic, normocephalic EYES: EOMI, anicteric, able to fully open and close eyelids SKIN: Skin color normal, turgor normal. No visible rashes or lesions. EAR, NOSE, MOUTH, THROAT: Lips, oral mucosa, tongue gums, oropharynx are moist , pink, no lesions. Ears normal appearance, no lesions. NECK: supple ROM normal. RESPIRATORY: Lungs clear to auscultation. Good diaphragmatic excursion. CARDIAC: normal S1 and S2; no rubs, murmurs, or gallops; regular rhythm ABDOMEN: Abdomen soft, non-tender. BS normal. No masses or organomegaly. MUSCULOSKELETAL: ROM full, muscles are not tender EXTREMITIES: no pitting edema in LE, no new deformities or skin discoloration. NEURO: Alert, oriented X 3, Cranial nerves II-XII intact, Grossly normal motor function. PULSES: 2+ radial, 2+ carotid REVIEW OF SYSTEMS: GENERAL: no malaise, no fevers., SEE HPI HEENT: Negative for frequent or significant headaches All other reviewed and negative other than HPI. Lab and Diagnostics Result Diagram: 11/26/16 0501 11/26/16 0345 X-Rays, CTs and MRIs Thoracic MRI performed 11/25/2016 IMPRESSION: 1. T10-T11 circumferential disc bulge causes moderate central canal stenosis with ventral cord flattening. No intramedullary cord edema. 2. Additional T9-T10 right central, subarticular, and foraminal disc protrusion causes asymmetric effacement of the right lateral recess, with mild right foraminal stenosis and minimal right ventral cord flattening. 3. T6-T7 left central disc protrusion causes left ventral cord flattening as well, without intramedullary cord edema. Dictated by: Emerson Eubanks M.D. on 11/25/2016 at 16:00 Lumbar MRI performed 11/25/2016 IMPRESSION: 1. No large disc protrusions, extrusions, or new imaging findings are evident to explain the patient's lack of rectal tone. 2. Mild to moderate multilevel degenerative changes of the lumbar spine are similar to the prior study. 3. Small central disc protrusion at L3-L4 with an associated annular fissure is larger on the current exam, but does not result in significant neural impingement. 4. Postoperative changes at L4-L5. 5. The degree of central canal and neural foraminal narrowing is unchanged since the prior study. Dictated by: Gomez Lord M.D. on 11/25/2016 at 12:27 Assessment & Plan Elena Dent is a 41-year-old woman with substantial lumbar spine surgical history presents with stabbing low back pain with numbness, weakness to her lower extremities and urinary incontinence, MRI unremarkable for change in MRI findings from previous, admitted for pain management and further neuro evaluation. Acute on chronic low back pain, with urinary incontinence and bilateral paresthesia, present on admission, active Given the history this may represent a lumbar back muscle strain exacerbating coexisting neurologic symptoms. Dr. Edwards of Neurosurgery at [facility] spoke with Dr. Mike Aparicio regarding MRI findings and agreed that there is no emergent surgical findings. Agreed with inpatient medical treatment. - Neurology consult is not available today Plan - pain management - Physical therapy evaluation and recommendations Chronic anxiety, present on admission, stable Citalopram 40 mg by mouth daily, clonazepam 2 mg by mouth twice a day, trazodone 100 mg by mouth at bedtime History of depression, present on admission, stable Citalopram Continue to monitor Morbid obesity, present on admission, stable Dietitian consult Physical therapy as above GI prophylaxis H2 blockers, famotidine DVT prophylaxis subcutaneous heparin Pain management NSAIDs, gabapentin, dexamethasone, oxycodone, Dilaudid, APAP. DVT PROPHYLAXIS: Heparin subcutaneous Code status: Full code Disposition: discharge in 1-2 days after patient improves. Labs, radiology tests reviewed. Plan of care, medication side effects, home medication, diagnostic procedures and available alternatives were discussed and reviewed with patient. All questions answered. Patient verbalized understanding, approved and agreed to plan of care. GI Prophylaxis: H2 gayatri VTE Prophylaxis: Sub-Q Heparin (Unfractionated) Resuscitation Status: CPR: Attempt Resuscitation Gt Brown MD Nov 26, 2016 15:51
[2016-11-26 16:18] VITALS: BP 106/69; PULSE 80; RESP 20; O2SAT 96
--- NOTE | 2016-11-26 16:23 | NUR ---
spiritual care: nursing referral conversational visit. pt tearful, expressed frustration and hopelessness. she shared her frustration with hearing "there's nothing we can do" and her coping with chronic pain. Pt reflected on other medical care experiences including her sense of complying with medical suggestions/plan but with increasing distrust as she continues to have pain/struggle. Pt uatsdin, responded to attentive listening and expressed [facility] to be [facility] up for tomorrow. Prayer and written resources also provided.
[2016-11-26 19:45] VITALS: BP 134/79; PULSE 66; RESP 18; O2SAT 99
[2016-11-27] MEDS: Heparin 5,000 Unit/mL Inj SUBQ SCH ×3 (00:41→17:11)
[2016-11-27] MEDS: HYDROmorphone 0.5 mg/0.5 mL iSecure Syringe IVPUSH SCH ×4 (00:52→11:55)
[2016-11-27] MEDS: oxyCODONE-Acetamin 5-325 mg Tablet PO PRN ×5 (02:37→19:48)
[2016-11-27 04:50] VITALS: BP 101/68; PULSE 57; RESP 18; O2SAT 99
--- NOTE | 2016-11-27 07:39 | NUR ---
PAIN: Pt. frequently c/o pain. Rates her pain at 10/10 or 9.5/10. Given all prn pain meds and scheduled meds as well. Pt. call staff frequently for multiple needs. Was able to ambulate to the BR with one RN SBA and the FWW. Gave report to JORY Wayne
[2016-11-27] MEDS: Ondansetron 2 mg/mL 2 mL Inj IVPUSH PRN (10:00)
--- NOTE | 2016-11-27 12:09 | PCM.PNMED ---
Subjective Date of Service Nov 27, 2016 Subjective Patient is in bed, states that she feels better. Physical therapy recommended possible fdc facility placement to continue to have. Patient would like to be discharged home. She is still receiving IV Dilaudid. She agreed to stop it and continue with oral pain medications only she would like to stay one more day for pain control. She would like to go home tomorrow. Exam Vital Signs Vital Sign - Last Date Time Temp Pulse Resp B/P Pulse Ox O2 Delivery O2 Flow Rate FiO2 11/27/16 04:50 36.4 57 18 101/68 99 Room Air Intake and Output 11/26/16 11/26/16 11/27/16 Cumulative From/Thru 15:00 23:00 07:00 11/25/16 11:02 - 11/27/16 06:08 Intake Total 636 ml 1408 ml 2945 ml Output Total 400 ml 800 ml 1350 ml Balance 236 ml 608 ml 1595 ml Intake Oral 636 ml 1158 ml 2594 ml IV Total 250 ml 351 ml Output Urine Total 400 ml 800 ml 1350 ml # Voids 2 3 5 # Bowel Movements 0 0 0 Exam PHYSICAL EXAM: GENERAL: Alert, in bed, not in distress, asking for IV Dilaudid. HEAD: atraumatic, normocephalic EYES: EOMI, anicteric, able to fully open and close eyelids SKIN: Skin color normal, turgor normal. No visible rashes or lesions. EAR, NOSE, MOUTH, THROAT: Lips, oral mucosa, tongue are moist, pink, no lesions. NECK: supple ROM normal. RESPIRATORY: Lungs clear to auscultation. Good diaphragmatic excursion. CARDIAC: normal S1 and S2; no rubs, murmurs, or gallops; regular rate and rhythm ABDOMEN: Abdomen soft, non-tender. BS normal. MUSCULOSKELETAL: ROM full, muscles are not tender; patient is complaining of back pain even with the slightest touch to the back, requesting IV Dilaudid for pain control. EXTREMITIES: no pitting edema in LE, no new deformities or skin discoloration. NEURO: Alert, oriented X 3, Sensation grossly intact., Cranial nerves II-XII intact, Grossly normal motor function. PULSES: 2+ radial, 2+ carotid REVIEW OF SYSTEMS: GENERAL: no malaise, no fevers., SEE HPI HEENT: Negative for frequent or significant headaches All other reviewed and negative other than HPI. IVs and Medications Medications Reviewed: Medications were reviewed in detail Lab and Diagnostics Result Diagram: 11/26/16 0501 11/26/16 0345 X-Rays, CTs and MRIs Thoracic MRI performed 11/25/2016 IMPRESSION: 1. T10-T11 circumferential disc bulge causes moderate central canal stenosis with ventral cord flattening. No intramedullary cord edema. 2. Additional T9-T10 right central, subarticular, and foraminal disc protrusion causes asymmetric effacement of the right lateral recess, with mild right foraminal stenosis and minimal right ventral cord flattening. 3. T6-T7 left central disc protrusion causes left ventral cord flattening as well, without intramedullary cord edema. Dictated by: Emerson Eubanks M.D. on 11/25/2016 at 16:00 Lumbar MRI performed 11/25/2016 IMPRESSION: 1. No large disc protrusions, extrusions, or new imaging findings are evident to explain the patient's lack of rectal tone. 2. Mild to moderate multilevel degenerative changes of the lumbar spine are similar to the prior study. 3. Small central disc protrusion at L3-L4 with an associated annular fissure is larger on the current exam, but does not result in significant neural impingement. 4. Postoperative changes at L4-L5. 5. The degree of central canal and neural foraminal narrowing is unchanged since the prior study. Dictated by: Gomez Lord M.D. on 11/25/2016 at 12:27 Assessment & Plan Elena Dent is a 41-year-old woman with Hx of chronic back pain, lumbar spine surgery presented with low back pain and subjective numbness, weakness to her lower extremities and urinary incontinence, MRI showed same changes as prior MRI. Patient was admitted for pain management. Dr. Edwards of Neurosurgery at [facility] spoke with Dr. Mike Aparicio regarding MRI findings and agreed that there is no emergent surgical findings. Acute on chronic low back pain, with urinary incontinence and bilateral paresthesia, present on admission, active - stable - Neurology consult is not available today Plan - pain management with PO meds; stop IV Dilaudid - c/w Physical therapy - discharge planning. Patient would like to go home. She does not want to go to SNF. Chronic anxiety, History of depression - stable - c/w current meds Morbid obesity DVT PROPHYLAXIS: Heparin subcutaneous Code status: Full code Disposition: discharge in 1-2 days after patient improves. Labs, radiology tests reviewed. Plan of care, medication side effects, home medication, diagnostic procedures and available alternatives were discussed and reviewed with patient. All questions answered. Patient verbalized understanding, approved and agreed to plan of care. VTE Prophylaxis: Sub-Q Heparin (Unfractionated) Resuscitation Status: CPR: Attempt Resuscitation Gt Brown MD Nov 27, 2016 12:09
[2016-11-27 13:26] VITALS: BP 118/71; PULSE 57; RESP 18; O2SAT 97
--- NOTE | 2016-11-27 14:56 | NUR ---
Social Work: Readiness for Discharge/Multidisciplinary Rounds D: EMR reviewed. Pt is on day 2 of hospitalization. Pt discussed in multidisciplinary rounds - PT recommends SNF as of 11/26. Per MD, pt does not qualify for SNF and will not place order until further evaluation. agreeable to update SW if SNF order is placed and pt will discharge today. MD met with pt and updated SW - pt stated she does not want to go to SNF and will coordinate going home with her family. SW discussed HH, not agreeable. No SW needs identified at this time, no MD orders received. SW will continue to follow if MD places SW discharge planning orders for pt. A: Pt who is independent at baseline P: Pt anticipated to discharge home via POV today. No SW needs identified at this time, no MD order received. SW will continue to follow pt for needs that may arise prior to discharge. МАРИНА Marin
[2016-11-27] MEDS ORDERED: OXYC1TAB24 PO (18:07)
[2016-11-27] MEDS ORDERED: CYCL10TA9 PO (18:07)
--- NOTE | 2016-11-27 18:23 | PCM.DC.MED ---
Discharge Summary Date of Service Nov 27, 2016 Dates of Hospitalization Date of Hospital Admission Nov 25, 2016 at 18:43 Date of Discharge: Nov 27, 2016 Providers: Admitting Physician: Paula Estrada DO Primary Care Physician: Other,Physician Attending Physician: Gt Brown MD Diagnosis at Time of Discharge Diagnosis at Time of Discharge Acute on chronic back pain Consultations Dr. Edwards of Neurosurgery at [facility] spoke with Dr. Mike Aparicio regarding MRI findings and agreed that there is no emergent surgical findings. Procedures XRay, CTs & MRIs Thoracic MRI performed 11/25/2016 IMPRESSION: 1. T10-T11 circumferential disc bulge causes moderate central canal stenosis with ventral cord flattening. No intramedullary cord edema. 2. Additional T9-T10 right central, subarticular, and foraminal disc protrusion causes asymmetric effacement of the right lateral recess, with mild right foraminal stenosis and minimal right ventral cord flattening. 3. T6-T7 left central disc protrusion causes left ventral cord flattening as well, without intramedullary cord edema. Dictated by: Emerson Eubanks M.D. on 11/25/2016 at 16:00 Lumbar MRI performed 11/25/2016 IMPRESSION: 1. No large disc protrusions, extrusions, or new imaging findings are evident to explain the patient's lack of rectal tone. 2. Mild to moderate multilevel degenerative changes of the lumbar spine are similar to the prior study. 3. Small central disc protrusion at L3-L4 with an associated annular fissure is larger on the current exam, but does not result in significant neural impingement. 4. Postoperative changes at L4-L5. 5. The degree of central canal and neural foraminal narrowing is unchanged since the prior study. Dictated by: Gomez Lord M.D. on 11/25/2016 at 12:27 Hospital Course Hospital Course: Elena Dent is a 41-year-old woman with Hx of chronic back pain, lumbar spine surgery presented with low back pain and subjective numbness , weakness to her lower extremities and questionable urinary incontinence, MRI showed same changes as prior MRI. Dr. Edwards of Neurosurgery at [facility] spoke with Dr. Mike Aparicio regarding MRI findings and agreed that there is no emergent surgical findings.Patient was admitted for pain management. Patient was diagnosed with acute on chronic lower back pain. Patient was treated with PT, IV and PO opioids. She was asking for IV Dilaudid very frequently. PT initially recommended SNF placement. I discussed it with the patient , she would like to be discharged home and c/w PT in outpatient settings. Patient strongly declined SNF. She agreed to manage her pain with PO meds only. Initially she wonted to be discharged tomorrow but in afternoon she changed her mind and asked to discharge her home today at night. Her back pain and other symptoms improved dramatically, she was able to walk and take care of herself. Patient informed me that her PCP was reluctant to prescribe opioids and would like to manage her pain with non-opioid medications. I agree with PCP, patient will receive short course of PO opioids PRN and will continue with non-opioid pain management and PT in outpatient settings. After patient improved she was discharged home with recommendation to follow up with her PCP and neurologist for further management of her medical problems. Patient Condition @ Discharge: good Discharge Disposition: home Discharge Activity: PT/OT Driving: Patient was strongly advised against driving when under influence of alcohol, pain meds or other medication that can cause sedation or decreased reaction. Patient was strongly advised that she must not drink, drive, operative heavy machinery or do anything that requires precise judgement or dexterity within 12 hours of taking the controlled medication that was prescribed to her . Patient was aware that opioids and benzodiasepines are very addictive medications and may cause psychological or physical addiction. Discharge Diet: regular diet, heart healthy, low fat, low salt, high fiber Information Provided to Patient: information about discharge medications Discharge Medications: I discussed with patient medication dosage, usage, goals of therapy, side effects, alternatives. During discharge patient was allert, oriented, able to make own informed decisions. We discussed possible severe side effects, adverse reactions, benefits, risks, alternatives of current and newly prescribed medications and diagnostic procedures. Patient verbalized understanding and agreed to current plan of care and discharge. DISCHARGE ACTIVITY: 1. Discussed with patient re: discharge plan of care/treatment, and follow up care/services. 2. Patient agreed with discharge plan and further plan of care, all questions were answered/addressed, no further questions at the time of discharge. Exam Vital Signs (Last) Date Time Temp Pulse Resp B/P Pulse Ox O2 Delivery O2 Flow Rate FiO2 11/27/16 16:14 Room Air 11/27/16 13:26 36.7 57 18 118/71 97 Test 11/25/16 12:15 11/25/16 17:59 11/25/16 18:03 11/26/16 03:45 Hold Purple Top Tube Received (Received) Hold Blue Top Tube Received (Received) Hold [place] Top Tube Received (Received) Hold [place] Top Tube Received (Received) Hold Urine Received (Received) Urine Color Yellow (YELLOW) Urine Appearance Cloudy (CLEAR,HAZY) Urine pH 5.5 (5.0-8.0) Urine Specific [place] 1.030 (1.003-1.035) Urine Protein Negativemg/dL (NEG,TRACE) Urine Glucose (UA) Negativemg/dL (NEGATIVE) Urine Ketones Negativemg/dL (NEGATIVE) Urine Occult Blood Negative (NEGATIVE) Urine Nitrite Negative (NEGATIVE) Urine Bilirubin Negative (NEGATIVE) Urine Urobilinogen Normalmg/dL (NORMAL) Urine Leukocyte Esterase Negative (NEGATIVE) Urine RBC 0-2/hpf (0-2) Urine WBC 0-5/hpf (0-5) Urine Epithelial Cells Many/hpf (NONE-MOD) Urine Crystals None seen (NONE SEEN) Urine Bacteria Moderate/hpf (NONE-FEW) Urine Hyaline Casts None/lpf (NONE) Urine Granular Casts None seen (NONE SEEN) Urine Waxy Casts None seen (NONE SEEN) Urine Red Blood Cell Casts None seen (NONE SEEN) Urine White Blood Cell Casts None seen (NONE SEEN) Urine Mucus None seen (None Seen) Urine Trichomonas None seen (NONE SEEN) Urine Yeast None (NONE SEEN) Urinalysis Comment None Urine Culture Reflexed Indicated Sodium Level 139mEq/L (134-144) Potassium Level 5.3mEq/L (3.5-5.2) Chloride Level 105mEq/L (97-108) Carbon Dioxide Level 20mmol/L (18-29) Blood Urea Nitrogen 15mg/dL (6-24) Creatinine 0.96mg/dL (0.57-1.00) Estimat Glomerular Filtration Rate 92mL/min (>59) Glucose Level 149mg/dL (60-99) Calcium Level 8.8mg/dL (8.5-10.1) Magnesium Level 2.0mg/dL (1.6-2.6) Total Bilirubin 0.4mg/dL (0.0-1.2) Aspartate Amino Transf (AST/SGOT) 24U/L (0-50) Alanine Aminotransferase (ALT/SGPT) 11U/L (0-32) Alkaline Phosphatase 79U/L (25-150) Total Protein 6.9g/dL (6.4-8.4) Albumin 4.1g/dL (3.4-5.0) Test 11/26/16 05:01 White Blood Count 11.3th/mm3 (3.8-10.1) Red Blood Count 4.32mil/mm3 (3.90-5.20) Hemoglobin 14.5g/dL (12.0-15.6) Hematocrit 42.1% (35.0-46.0) Mean Corpuscular Volume 97.5fL (81-100) Mean Corpuscular Hemoglobin 33.6pg (27.0-35.0) Mean Corpuscular Hemoglobin Concent 34.4% (32.0-37.0) Red Cell Distribution Width 12.5% (12.3-15.4) Platelet Count 249bil/L (150-400) Neutrophils (%) (Auto) 82.7% (40-74) Lymphocytes (%) (Auto) 14.7% (14-46) Monocytes (%) (Auto) 1.6% (4-12) Eosinophils (%) (Auto) 0.4% (0-5) Basophils (%) (Auto) 0.2% (0-3) Discharge Medications Discharge Medications Citalopram (Citalopram) 40 Mg Tablet 40 MG PO DAILY (Reported) Clonazepam (Clonazepam) 1 Mg Tablet 2 MG PO TID (Reported) Cyclobenzaprine (Cyclobenzaprine) 10 Mg Tablet 10 MG PO BID Prescribed by: KIT ALEJO MD Gabapentin (Gabapentin) 300 Mg Capsule 300 MG PO TID (Reported) Methocarbamol (Methocarbamol) 750 Mg Tablet 750 MG PO TID (Reported) Trazodone (Trazodone) 50 Mg Tablet 150 MG PO HS (Reported) As needed Ibuprofen (Ibuprofen) 800 Mg Tablet 800 MG PO QID PRN PRN For Pain (Reported) oxyCODONE-Acetaminophen 5-325 mg (oxyCODONE-Acetaminophen 5-325 mg) 1 Each Tablet 1-2 TAB PO every 6 hours PRN PRN For Pain Prescribed by: KIT ALEJO MD Followup Plan Discharge Diet: Heart Healthy Follow-up with PCP in: Other (Follow up with PCP in 2-3 days after discharge. ) Gt Brown MD Nov 27, 2016 18:23 Neutrophils (%) (Auto) 82.7% (40-74) Lymphocytes (%) (Auto) 14.7% (14-46) Monocytes (%) (Auto) 1.6% (4-12) Eosinophils (%) (Auto) 0.4% (0-5) Basophils (%) (Auto) 0.2% (0-3) Discharge Medications Discharge Medications Citalopram (Citalopram) 40 Mg Tablet 40 MG PO DAILY (Reported) Clonazepam (Clonazepam) 1 Mg Tablet 2 MG PO TID (Reported) Cyclobenzaprine (Cyclobenzaprine) 10 Mg Tablet 10 MG PO BID Prescribed by: KIT ALEJO MD Gabapentin (Gabapentin) 300 Mg Capsule 300 MG PO TID (Reported) Methocarbamol (Methocarbamol) 750 Mg Tablet 750 MG PO TID (Reported) Trazodone (Trazodone) 50 Mg Tablet 150 MG PO HS (Reported) As needed Ibuprofen (Ibuprofen) 800 Mg Tablet 800 MG PO QID PRN PRN For Pain (Reported) oxyCODONE-Acetaminophen 5-325 mg (oxyCODONE-Acetaminophen 5-325 mg) 1 Each Tablet 1-2 TAB PO every 6 hours PRN PRN For Pain Prescribed by: MD Kit VALENTIN Andriy MD Nov 27, 2016 18:23
--- NOTE | 2016-11-27 18:38 | PCM.DIMED ---
Discharge Instructions Date of Service Nov 27, 2016 Dates of Hospitalization Nov 25, 2016 at 18:43 Discharge Diagnosis Discharge Diagnosis Acute on chronic back pain Medication Instructions Additional med instructions Do NOT drivE when under influence of alcohol, pain meds or other medication that can cause sedation or decreased reaction. You must not drink, drive, operative heavy machinery or do anything that requires precise judgement or dexterity within 12 hours of taking the controlled medication that was prescribed to her . Opioids and benzodiasepines are very addictive medications and may cause psychological or physical addiction. Diet Discharge Diet: Heart Healthy Patient Instructions Patient Instructions Continue with outpatient Physical therapy Follow-up with PCP in: Other (Follow up with PCP in 2-3 days after discharge. ) Gt Brown MD Nov 27, 2016 18:38
--- NOTE | 2016-11-27 19:30 | NUR ---
Pain Patient continues to report pain throughout this shift. Orders received to discontinue IV pain medication. While patient was initially hesitant to stop using pain medication the patient reported good results with oral pain medications, stating that pain had decreased and was at a better level than previously in the shift. Care is ongoing.
--- NOTE | 2016-11-27 20:14 | NUR ---
discharge home IV removed, Oral pain med given. Alert, states understanding of DC instructions.
== END 2016-11-27 20:14 | disposition home or self-care (01) ==
LOC: SED 10:47 → OSC 18:43
PROVIDERS: ADMIT Internal Medicine; ATTEND Internal Medicine
DX: M54.5 Low back pain (principal); G89.29 Other chronic pain; R20.2 Paresthesia of skin; R32 Unspecified urinary incontinence; F32.9 Major depressive disorder, single episode, unspecified; F41.8 Other specified anxiety disorders; E66.01 Morbid (severe) obesity due to excess calories; Z68.41 Body mass index [BMI] 40.0-44.9, adult; M51.36 Other intervertebral disc degeneration, lumbar region; Z87.891 Personal history of nicotine dependence; Z98.890 Other specified postprocedural states
CPT/HCPCS: 36415; 72146; 72148; 80053; 81000; 83735; 85025; 87086; 87088; 96372; 96374; 96375; 96376; 97116; 97162; 99285; G0378; J1100; J1170; J1644; J2060; J2405

== ENCOUNTER 2016-12-24 20:36 | Emergency (ER) | payer OTHER ==
[~2016-12-24] VITALS: Ht 175.3 cm; Wt 131.8 kg
[~2016-12-24 20:36] MED LIST changes: +CYCL10TA9 PO; +METH750T3 PO; +OXYC1TAB24 PO
[2016-12-24 20:46] VITALS: BP 125/74; PULSE 103; RESP 16; O2SAT 98
[2016-12-24 22:29] LABS: BASOPHILS % (AUTO) 1 % (0-3); EOSINOPHILS % (AUTO) 4 % (0-5); MONOCYTES % (AUTO) 10 % (4-12); Mean Corpuscular Hemoglobin 34.2 pg (27.0-35.0); NEUTROPHILS % (AUTO) 50 % (40-74); Platelet Count 155 bil/L (150-400)
--- NOTE | 2016-12-24 22:39 | ED.REPORT ---
HPI-Neurologic Deficit Date of Service Dec 24, 2016 ED Provider: Yoana Sainz MD Pt is a 41 year old female with chronic back pain and herniated discs presenting to the ED complaining of diffuse left sided numbness/tingling and back/hip pain onset yesterday. The numbness began in her toes and has steadily been moving up, and radiates all the way up to the back of her neck and her left arm. Associated symptoms include a headache. She also states that it feels like there is something in her eye, although she denies wearing contacts. Pt also reports that she has had dizziness and trouble walking, and she has fallen multiple times. Pt reports that she had similar symptoms last year, and that they found cysts in her spine which was affecting her circulation. Denies any recent back injury or LOC. She took a Percocet yesterday without relief, but states that she regularly only takes Ibuprofen. Before it was both legs, and only the legs, this time it is only the left leg and also the left arm. Nursing Notes Stated Complaint: LEFT LEG NUMB/SHOOTING PAIN UP BACK Chief Complaint: Neuro Symptoms/ Deficits Nursing Notes Reviewed: Yes Allergies: Coded Allergies: morphine (Verified Allergy, Severe, anaphalysis, 12/24/16) nitrofurantoin (Verified Allergy, Severe, Hives, stopped breathing, ) amoxicillin (Verified Allergy, Intermediate, Hives, 12/24/16) TOLERATED KEFLEX IN PAST Scheduled Citalopram (Citalopram) 40 Mg Tablet 40 MG PO DAILY Clonazepam (Clonazepam) 1 Mg Tablet 2 MG PO TID Cyclobenzaprine (Cyclobenzaprine) 10 Mg Tablet 10 MG PO BID Gabapentin (Gabapentin) 300 Mg Capsule 300 MG PO TID Methocarbamol (Methocarbamol) 750 Mg Tablet 750 MG PO TID Trazodone (Trazodone) 50 Mg Tablet 150 MG PO HS Scheduled PRN Ibuprofen (Ibuprofen) 800 Mg Tablet 800 MG PO QID PRN PRN For Pain oxyCODONE-Acetaminophen 5-325 mg (oxyCODONE-Acetaminophen 5-325 mg) 1 Each Tablet 1-2 TAB PO every 6 hours PRN PRN For Pain General Time Seen by Provider: 22:45 Chief Complaint Numbness hand... (Left), Numbness foot... (Left), Off balance Hx Obtained From: Patient Arrived By: Walk-in Sudden in Onset?: No Onset Occurred: Yesterday Symptom Duration: Since onset Progression Since Onset: Gradually worsening Location: : Back lower: Back upper: Leg left: Neck Quality: Painful Severity: Current: Severe Severity: Maximum: Severe Recent Healthcare: No recent doctor visit, No recent hospitalization Similar Sx Previous: No Past Medical History Past Medical History Notes: Patient seen in ED 06/29/16 for back pain - No high grade stenosis on MRI Several ED visits for back pain Admitted: 09/25- for pain or foreign body right foot with cellulitis, podiatry doctor all him, discharge with plan for outpatient excision Past Medical History Herniated discs Seizures Cellulitis Anxiety History depression History of heart murmur as Hypertension, not on medications History polycystic ovarian syndrome Obesity ho reported transverse myelitis h/o MRSA R Foot 09/2016 HIV+ per EMR notes, however see ID consultation 09/2016: HIV negative Past Surgical History Tubal ligation Laminectomy L4-L5 in 2009 He sections in 2000, 2013 Hysteroscopy Meniscectomy L4-L5 Right foot FB removal 09/07/16 Reports: , Tonsillectomy Family History Brother had open heart surgery at 35, mother and father have HTN Smoking History Former Smoker Social History Alcohol Use: Denies alcohol use Drug Use: Denies drug use Occupation lives with boyfriend Ambulatory Status Independent Review of Systems Feels like foreign body in left eye Musculoskeletal: Reports: Back pain, Joint pain (Left hip) Neurologic: Reports: Dizziness, Headache, Numbness, Problem walking, Denies: Change LOC Complete sys rev & neg: except as marked. Physical Exam Initial Vital Signs Vital Signs (First) Date Time Temp Pulse Resp B/P Pulse Ox O2 Delivery O2 Flow Rate FiO2 12/24/16 20:46 36.6 103 16 125/74 98 Room Air Initial VS: Reviewed ENT: Mucous membranes moist, Conjunctiva normal, No scleral icterus Abdomen / GI: Soft, Non-tender, No guarding, No rebound, No distention Skin: Warm, Dry, No cyanosis Psychiatric: Mood/affect normal, Behavior normal, Normal thought content General/Constitutional: Awake, Alert Appearance / Presentation: Positive: Obese Head / Eyes: Atraumatic, Normocephalic, PERRL, EOMI Respiratory / Chest: Atraumatic, Breath sounds NL, Breath sounds = bilat, No respiratory distress Cardiovascular: Heart rate NL, Regular rhythm, Heart sounds NL, No gallop, No murmurs, No rubs Neurologic: Oriented X3, Speech NL Back and hip pain with movement of left arm. Reports decrease sensation of left arm and leg. difficulty with left leg strength exam due to pain. 5/5 strength right arm and leg. no facial droop, no dysarthria, EOMI, PERRLA Back: Atraumatic Thoracic and cervical spine tenderness Interpretation & Diagnostics Lab Results Interpretation Result Diagram: 12/24/16213912/24/162139 Test 12/24/16 21:40 12/24/16 22:41 12/24/16 22:49 White Blood Count 10.9th/mm3 (3.8-10.1) Red Blood Count 4.01mil/mm3 (3.90-5.20) Hemoglobin 13.7g/dL (12.0-15.6) Hematocrit 38.1% (35.0-46.0) Mean Corpuscular Volume 95.0fL (81-100) Mean Corpuscular Hemoglobin 34.2pg (27.0-35.0) Mean Corpuscular Hemoglobin Concent 36.0% (32.0-37.0) Red Cell Distribution Width 12.5% (12.3-15.4) Platelet Count 155bil/L (150-400) Neutrophils (%) (Auto) 50% (40-74) Lymphocytes (%) (Auto) 35% (14-46) Monocytes (%) (Auto) 10% (4-12) Eosinophils (%) (Auto) 4% (0-5) Basophils (%) (Auto) 1% (0-3) Hold Purple Top Tube Received (Received) Hold Blue Top Tube Received (Received) Sodium Level 137mEq/L (134-144) Potassium Level 4.0mEq/L (3.5-5.2) Chloride Level 100mEq/L (97-108) Carbon Dioxide Level 23mmol/L (18-29) Blood Urea Nitrogen 10mg/dL (6-24) Creatinine 0.92mg/dL (0.57-1.00) Estimat Glomerular Filtration Rate 97mL/min (>59) Glucose Level 98mg/dL (60-99) Calcium Level 9.0mg/dL (8.5-10.1) Total Bilirubin 0.7mg/dL (0.0-1.2) Aspartate Amino Transf (AST/SGOT) 38U/L (0-50) Alanine Aminotransferase (ALT/SGPT) 18U/L (0-32) Alkaline Phosphatase 88U/L (25-150) Total Protein 7.3g/dL (6.4-8.4) Albumin 4.1g/dL (3.4-5.0) Hold [place] Top Tube Received (Received) Hold [place] Top Tube Received (Received) Hold Urine Received (Received) CT Head Interpretation IMPRESSION: No CT evidence of hemorrhage, mass, or aute infarct. This report was transmitted to the emergency room at 12/24/2016 - 11:46:40 PM PDT. Study: Head CT no contrast Interpretation / Wet Read by: Interpret - Radiologist Re-Eval/Medical Decision Med Decision/Clinical Course 41-year-old female presents to the emergency department with symptoms of tingling of her left leg radiating up into her left arm and neck. She reports weakness of her left leg and her left arm, on my physical exam her left upper extremity has 5/5 strength but she reports that exacerbates her low back pain. While she had difficulty with strength testing of the left lower extremity while in bed, she was ambulatory in the emergency department with support only for steadiness,. She has had a recent lumbar MRI from bilateral lower extremity weakness that revealed no acute cord compression. Her symptoms subsequently resolved from that encounter until her feeling of weakness in her leg today. Her leg weakness today is also related to her back pain. I have controlled her back pain with half milligram of IV Dilaudid, however she was quite sleepy after receiving this. Despite her sleepiness she was able to ambulate throughout the emergency department. She has no stroke risk factors I do not suspect stroke at this time. On review of her records she has a prior visit in January 2016 with similar ascending symptoms without a cause identified on MRI cervical spine. The patient takes Klonopin as well as Percocet at home for her pain, I suspect that she may have a medication side effect contributing to not only her upper and lower extremity weakness but her dizziness. She has had 29 visits to the emergency Department either here or [facility] in the past year. Counseled Regarding: Diagnosis, Lab results, Need for follow-up, When/why to return to ED Discharge & Departure Impression: Primary Impression: Chronic back pain Disposition: Home Discharge Condition All VS Reviewed: Yes Condition: Improved Additional Instructions: Call your primary care doctor regarding her symptoms and your visit to the emergency department. Return to the emergency department if you are unable to walk or develop worsening symptoms including fevers, problems with urination or bowel movements. Referrals: NOPCP (PCP) Scribe Attestation Portions of this note were transcribed by Emi Peace. I, Dr. Sainz, personally performed the history, physical exam and medical decision-making; I reviewed and confirmed the accuracy of the information in the transcribed note. Signed by: Bob Cantor, 12/24/16. Yoana Sainz MD Dec 24, 2016 22:38 EMI PEACE Dec 24, 2016 22:51
[2016-12-24] MEDS ORDERED: HYDROmorphone 0.5 mg/0.5 mL iSecure Syringe IVPUSH ONE (23:10)
[2016-12-24] MEDS ORDERED: MetoCLOpramide 5 mg/mL 2 mL Inj IVPUSH PRN (23:10)
[2016-12-24] MEDS ORDERED: 0.9% Sodium Chloride 1,000 ML IV ONE (23:10)
[2016-12-25 00:29] VITALS: BP 107/65; PULSE 77; RESP 16; O2SAT 96
[2016-12-25 02:55] LABS: COLOR,URINE DARK YELLOW (YELLOW)
[2016-12-25 02:56] LABS: APPEARANCE,URINE CLEAR (CLEAR,HAZY); OCCULT BLOOD,URINE NEGATIVE (NEGATIVE); PH,URINE 5.5 (5.0-8.0); UROBILINOGEN,URINE NORMAL (NORMAL)
--- NOTE | 2016-12-25 08:16 | DRSVH ---
PROCEDURE: CT BRAIN WITHOUT CONTRAST ([id number]) INDICATIONS: left leg and left arm weakness TECHNIQUE: Noncontrast 4.5 mm thick angled axial sections acquired from the foramen magnum to the vertex, with c oronal reformats. COMPARISON: [facility], CT, CT BRAIN WO CON, 07/28/2016, 18:37. [facility], CT, CT BRAIN WO CON, 04/24/2016, 21:27. FINDINGS: Image quality: Excellent. CSF spaces: Basal cisterns are patent. No extra-axial fluid collections. Ventricles are normal in size and shape. Brain: No midline shift. No intracranial masses or hemorrhage. [place]regoso-white matter interface is norm al. Skull and face: Calvarium and visualized facial bones are intact, without suspicious lesions. Sinuses: Visualized sinuses and mastoids are clear. IMPRESSION: No acute intracranial disease process. Dictated by: Coretta Castillo MD, PhD on 12/25/2016 at 8:13 Approved by: Coretta Castillo MD, PhD on 12/25/2016 at 8:15
== END 2016-12-25 00:42 | disposition home or self-care (01) ==
LOC: SED 20:36
DX: M54.6 Pain in thoracic spine (principal); M54.2 Cervicalgia; G89.29 Other chronic pain; R20.0 Anesthesia of skin; M25.552 Pain in left hip; R26.2 Difficulty in walking, not elsewhere classified; R29.6 Repeated falls; R51 Headache; R42 Dizziness and giddiness; I10 Essential (primary) hypertension; F41.8 Other specified anxiety disorders; Z86.14 Personal history of Methicillin resistant Staphylococcus aureus infection; Z90.89 Acquired absence of other organs; Z98.890 Other specified postprocedural states; Z87.891 Personal history of nicotine dependence; Z88.0 Allergy status to penicillin; Z88.5 Allergy status to narcotic agent; Z88.8 Allergy status to other drugs, medicaments and biological substances
CPT/HCPCS: 36415; 70450; 80053; 81000; 85025; 87086; 87088; 96374; 96375; 99285; J1170; J2765; J7030